=== PATIENT | male | born 1940 | race Caucasian/White ===

== ENCOUNTER 2018-01-03 14:56 | Inpatient (IN) | payer MEDICARE, BC ==
[2018-01-03 15:20] LABS: Basophils % (A) 0 %; Eosinophils # (A) 0.3 k/uL (0-0.7); Eosinophils % (A) 3 %; HCT 44.7 % (39.0-53.0); HGB 15.2 gm/dL (13.0-17.5); Lymphocytes # (A) 1.6 k/uL (1.0-4.8); Lymphocytes % (A) 17 %; MCH 29.7 pg (25.0-35.0); MCHC 34.1 g/dL (31.0-37.0); MCV 87.2 fL (80.0-100.0); Mean Platelet Volume 7.5; Monocytes # (A) 0.9 k/uL (0-1.0); Monocytes % (A) 9 %; Neutrophils # (A) 6.2 k/uL (1.3-7.7); Neutrophils % (A) 68 %; Platelet Count 193 k/uL (150-450); RBC 5.12 m/uL (4.30-5.90); WBC 9.1 k/uL (3.8-10.6)
[2018-01-03 15:29] LABS: Albumin 3.9 g/dL (3.5-5.0); Calcium 8.9 mg/dL (8.4-10.2); Magnesium 2.1 mg/dL (1.6-2.3); Potassium 3.9 mmol/L (3.5-5.1); Total Bilirubin 0.6 mg/dL (0.2-1.3); Total Protein 6.5 g/dL (6.3-8.2)
[2018-01-03 15:34] LABS: Partial Thromboplastin Time 24.8 sec (22.0-30.0)
--- NOTE | 2018-01-03 15:36 | ED ---
General Adult HPI - General Source: patient, EMS, RN notes reviewed, old records reviewed Mode of arrival: EMS Limitations: no limitations <Edson Fernando - Last Filed: 01/03/18 17:08> <Edson Amaro - Last Filed: 01/03/18 22:36> - General Chief complaint: Shortness of Breath Stated complaint: ULICES, AFIB Time Seen by Provider: 01/03/18 14:58 - History of Present Illness Initial comments: 77-year-old male presenting for episode of dyspnea. Patient was transported by EMS. He had a single episode of severe dyspnea which lasted less than a minute. He states he could not take a breath. He denies any chest pain with this. No neck pain or arm pain. No abdominal pain. No diaphoresis or vomiting. Episode resolved without treatment. EMS reports stable vitals during transport. He did have a second episode while being transported by EMS this again lasted seconds and was not accompanied by pain. EMS report no change in vitals during the episode. Patient has no known history of coronary artery disease. No history of DVT or PE. (Edson Fernando) - Related Data Home Medications Medication Instructions Recorded Confirmed Allopurinol [Zyloprim] 300 mg PO DAILY 01/03/18 01/03/18 Atenolol 25 mg PO BID 01/03/18 01/03/18 Colchicine 0.6 mg PO TID PRN 01/03/18 01/03/18 Ergocalciferol [Vitamin D2] 50,000 unit PO SA 01/03/18 01/03/18 Hydrochlorothiazide [Hydrodiuril] 50 mg PO DAILY 01/03/18 01/03/18 Lisinopril [Zestril] 5 mg PO DAILY 01/03/18 01/03/18 Ranitidine HCl 150 mg PO BID 01/03/18 01/03/18 Tamsulosin HCl [Flomax] 0.4 mg PO DAILY 01/03/18 01/03/18 amLODIPine BESYLATE [Norvasc] 10 mg PO DAILY 01/03/18 01/03/18 traMADol HCL [Ultram] 50 mg PO Q6HR PRN 01/03/18 01/03/18 Allergies Allergy/AdvReac Type Severity Reaction Status Date / Time No Known Allergies Allergy Verified 01/03/18 15:33 Review of Systems ROS Other: All systems not noted in ROS Statement are negative. <XimenaitaEdson Shreyas - Last Filed: 01/03/18 17:08> ROS Other: All systems not noted in ROS Statement are negative. <Edson Amaro - Last Filed: 01/03/18 22:36> ROS Statement: Those systems with pertinent positive or pertinent negative responses have been documented in the HPI. Past Medical History Past Medical History: Hyperlipidemia, Hypertension, Prostate Disorder History of Any Multi-Drug Resistant Organisms: None Reported Past Surgical History: Back Surgery Smoking Status: Current every day smoker Past Alcohol Use History: None Reported Past Drug Use History: None Reported <XimenamehranpettyEdson Shreyas - Last Filed: 01/03/18 17:08> General Exam Limitations: no limitations General appearance: alert, in no apparent distress Head exam: Present: atraumatic, normocephalic Eye exam: Present: normal appearance, PERRL ENT exam: Present: normal exam Neck exam: Present: normal inspection. Absent: tenderness, meningismus Respiratory exam: Present: normal lung sounds bilaterally. Absent: respiratory distress, wheezes, rales Cardiovascular Exam: Present: regular rate, normal rhythm GI/Abdominal exam: Present: soft. Absent: distended, tenderness Extremities exam: Present: normal inspection, normal capillary refill. Absent: pedal edema, calf tenderness Neurological exam: Present: alert, oriented X3. Absent: motor sensory deficit Psychiatric exam: Present: normal affect, normal mood Skin exam: Present: warm, dry, intact. Absent: cyanosis, diaphoretic <XimenaEdson jean baptiste N - Last Filed: 01/03/18 17:08> Course <XimenaEdson jean baptiste N - Last Filed: 01/03/18 17:08> <Edson Amaro - Last Filed: 01/03/18 22:36> Vital Signs 01/03/18 01/03/18 01/03/18 14:58 16:05 17:35 Temperature 97.3 F L Pulse Rate 75 79 65 Respiratory 18 18 18 Rate Blood Pressure 93/55 109/52 93/55 O2 Sat by Pulse 93 L 96 98 Oximetry 01/03/18 01/03/18 01/03/18 18:12 19:14 21:17 Temperature 97.9 F Pulse Rate 59 L 58 L Respiratory 18 16 18 Rate Blood Pressure 98/57 114/51 O2 Sat by Pulse 98 97 Oximetry 01/03/18 21:29 Temperature Pulse Rate 72 Respiratory 16 Rate Blood Pressure O2 Sat by Pulse 96 Oximetry - Reevaluation(s) Reevaluation #1: 01/03/18 22:32 I did reevaluate the patient several occasions the VQ scan was negative for evidence of PE. I did discuss the findings with the patient has patient will be admitted he has have evidence of renal failure hypotension and episodes of dyspnea (Edson Amaro) EKG Findings - EKG Comments: EKG Findings:: EKG: Atrial fibrillation, left axis deviation, incomplete right bundle, rate of 76, QRS duration 108, QTC 435 <Edson Fernando - Last Filed: 01/03/18 17:08> Medical Decision Making - Lab Data Result diagrams: 01/03/18 15:11 01/03/18 15:11 <Edson Fernando - Last Filed: 01/03/18 17:08> - Lab Data Result diagrams: 01/03/18 15:11 01/03/18 15:11 <Edson Amaro - Last Filed: 01/03/18 22:36> - Medical Decision Making 77-year-old male presenting with episodic dyspnea. Labs reveal normal white blood cell count, stable hemoglobin, d-dimer is elevated at 2.4, creatinine is also elevated 3.1 with no known baseline. Patient will receive a VQ scan for evaluation of pulmonary embolism given the elevated d-dimer. Patient's care will be signed out to Dr. Amaro at shift change awaiting VQ scan and final disposition. (Edson Fernando) - Lab Data Lab Results 01/03/18 01/03/18 01/03/18 Range/Units 15:11 15:11 15:11 WBC 9.1 (3.8-10.6) k/uL RBC 5.12 (4.30-5.90) m/uL Hgb 15.2 (13.0-17.5) gm/dL Hct 44.7 (39.0-53.0) % MCV 87.2 (80.0-100.0) fL MCH 29.7 (25.0-35.0) pg MCHC 34.1 (31.0-37.0) g/dL RDW 14.0 (11.5-15.5) % Plt Count 193 (150-450) k/uL Neutrophils % 68 % Lymphocytes % 17 % Monocytes % 9 % Eosinophils % 3 % Basophils % 0 % Neutrophils # 6.2 (1.3-7.7) k/uL Lymphocytes # 1.6 (1.0-4.8) k/uL Monocytes # 0.9 (0-1.0) k/uL Eosinophils # 0.3 (0-0.7) k/uL Basophils # 0.0 (0-0.2) k/uL PT (9.0-12.0) sec INR (<1.2) APTT (22.0-30.0) sec D-Dimer (<0.60) mg/L FEU Sodium 136 L (137-145) mmol/L Potassium 3.9 (3.5-5.1) mmol/L Chloride 97 L (98-107) mmol/L Carbon Dioxide 25 (22-30) mmol/L Anion Gap 14 mmol/L BUN 44 H (9-20) mg/dL Creatinine 3.00 H (0.66-1.25) mg/dL Est GFR (CKD-EPI)AfAm 22 (>60 ml/min/1.73 sqM) Est GFR (CKD-EPI)NonAf 19 (>60 ml/min/1.73 sqM) Glucose 110 H (74-99) mg/dL Calcium 8.9 (8.4-10.2) mg/dL Magnesium 2.1 (1.6-2.3) mg/dL Total Bilirubin 0.6 (0.2-1.3) mg/dL AST 28 (17-59) U/L ALT 24 (21-72) U/L Alkaline Phosphatase 70 (38-126) U/L Total Creatine Kinase 321 H (55-170) U/L CK-MB (CK-2) 7.0 H* (0.0-2.4) ng/mL CK-MB (CK-2) Rel Index 2.2 Troponin I <0.012 (0.000-0.034) ng/mL NT-Pro-B Natriuret Pep pg/mL Total Protein 6.5 (6.3-8.2) g/dL Albumin 3.9 (3.5-5.0) g/dL 01/03/18 01/03/18 Range/Units 15:11 15:11 WBC (3.8-10.6) k/uL RBC (4.30-5.90) m/uL Hgb (13.0-17.5) gm/dL Hct (39.0-53.0) % MCV (80.0-100.0) fL MCH (25.0-35.0) pg MCHC (31.0-37.0) g/dL RDW (11.5-15.5) % Plt Count (150-450) k/uL Neutrophils % % Lymphocytes % % Monocytes % % Eosinophils % % Basophils % % Neutrophils # (1.3-7.7) k/uL Lymphocytes # (1.0-4.8) k/uL Monocytes # (0-1.0) k/uL Eosinophils # (0-0.7) k/uL Basophils # (0-0.2) k/uL PT 10.0 (9.0-12.0) sec INR 1.0 (<1.2) APTT 24.8 (22.0-30.0) sec D-Dimer 2.41 H (<0.60) mg/L FEU Sodium (137-145) mmol/L Potassium (3.5-5.1) mmol/L Chloride (98-107) mmol/L Carbon Dioxide (22-30) mmol/L Anion Gap mmol/L BUN (9-20) mg/dL Creatinine (0.66-1.25) mg/dL Est GFR (CKD-EPI)AfAm (>60 ml/min/1.73 sqM) Est GFR (CKD-EPI)NonAf (>60 ml/min/1.73 sqM) Glucose (74-99) mg/dL Calcium (8.4-10.2) mg/dL Magnesium (1.6-2.3) mg/dL Total Bilirubin (0.2-1.3) mg/dL AST (17-59) U/L ALT (21-72) U/L Alkaline Phosphatase (38-126) U/L Total Creatine Kinase (55-170) U/L CK-MB (CK-2) (0.0-2.4) ng/mL CK-MB (CK-2) Rel Index Troponin I (0.000-0.034) ng/mL NT-Pro-B Natriuret Pep 2270 pg/mL Total Protein (6.3-8.2) g/dL Albumin (3.5-5.0) g/dL Disposition <Edson Fernando - Last Filed: 01/03/18 17:08> <Edson Amaro - Last Filed: 01/03/18 22:36> Clinical Impression: Acute renal failure (ARF), Hypotensive episode, Dyspnea Disposition: ADMITTED IP TO THIS HOSP Condition: Stable Referrals: [facility],Clinic [Primary Care Provider] - 1-2 days
[2018-01-03 15:37] LABS: D-Dimer 2.41 mg/L FEU (<0.60)
[2018-01-03 15:43] LABS: Creatine Kinase 321 U/L (55-170)
--- NOTE | 2018-01-03 15:52 | XR ---
EXAMINATION TYPE: XR chest 2V DATE OF EXAM: 01/03/2018 COMPARISON: None HISTORY: Severe shortness of breath and hypertension TECHNIQUE: Frontal and lateral views of the chest are obtained. FINDINGS: There is flattening of the diaphragms and pulmonary hyperinflation compatible with underly ing COPD. Anterior bridging osteophytes are seen that may relate to degenerative change or diffuse id iopathic skeletal hyperostosis within the thoracic spine. Cardiomediastinal silhouette is upper limit s of normal size. No focal consolidation or pleural effusion is seen. No pneumothorax. Moderate acrom ioclavicular arthropathy. IMPRESSION: No acute cardiopulmonary process. Radiographic sequela of COPD.
[2018-01-03 15:55] LABS: Troponin I <0.012 ng/mL (0.000-0.034)
--- NOTE | 2018-01-03 17:37 | NM ---
EXAMINATION TYPE: NM pul vent and perfuse DATE OF EXAM: 01/03/2018 COMPARISON: Chest radiographs 01/03/2018 at 3:46 PM HISTORY: Dyspnea, elevated d-dimer TECHNIQUE: Utilizing inhalation of 68.8 mCi Tc 99m DTPA aerosol and intravenous injection of 5.2 mCi of Tc 99m MAA, ventilation and perfusion images are acquired post injection in multiple projections. FINDINGS: The radiotracer distribution is noted to be mildly heterogeneous throughout the lung on both the vent ilation multiplanar images and the multiplanar perfusion images, on the left greater than the right. However, there is no evidence of mismatched defects. IMPRESSION: Low probability for the diagnosis of pulmonary embolism.
[2018-01-03] MEDS ORDERED: SODIUM CHLORIDE 0.9% 500 ML IV STA (18:05)
[2018-01-03] MEDS ORDERED: SODIUM CHLORIDE 0.9% 1,000 ML IV STA (22:34)
[2018-01-03] MEDS ORDERED: NALOXONE 0.4 MG/ML 1 ML VIAL IV PRN (22:36)
[2018-01-03] MEDS ORDERED: ACETAMINOPHEN TAB 325 MG TAB PO PRN (22:36)
[2018-01-03] MEDS ORDERED: COLCHICINE 0.6 MG EACH PO PRN (22:41)
[2018-01-03] MEDS ORDERED: traMADol 50 MG TAB PO PRN (22:41)
--- NOTE | 2018-01-03 22:42 | ED ---
Medical Decision Making - Medical Decision Making Additional information is currently being treated for acute gout attack is on medication. - Lab Data Result diagrams: 01/03/18 15:11 01/03/18 15:11 Lab Results 01/03/18 01/03/18 01/03/18 Range/Units 15:11 15:11 15:11 WBC 9.1 (3.8-10.6) k/uL RBC 5.12 (4.30-5.90) m/uL Hgb 15.2 (13.0-17.5) gm/dL Hct 44.7 (39.0-53.0) % MCV 87.2 (80.0-100.0) fL MCH 29.7 (25.0-35.0) pg MCHC 34.1 (31.0-37.0) g/dL RDW 14.0 (11.5-15.5) % Plt Count 193 (150-450) k/uL Neutrophils % 68 % Lymphocytes % 17 % Monocytes % 9 % Eosinophils % 3 % Basophils % 0 % Neutrophils # 6.2 (1.3-7.7) k/uL Lymphocytes # 1.6 (1.0-4.8) k/uL Monocytes # 0.9 (0-1.0) k/uL Eosinophils # 0.3 (0-0.7) k/uL Basophils # 0.0 (0-0.2) k/uL PT (9.0-12.0) sec INR (<1.2) APTT (22.0-30.0) sec D-Dimer (<0.60) mg/L FEU Sodium 136 L (137-145) mmol/L Potassium 3.9 (3.5-5.1) mmol/L Chloride 97 L (98-107) mmol/L Carbon Dioxide 25 (22-30) mmol/L Anion Gap 14 mmol/L BUN 44 H (9-20) mg/dL Creatinine 3.00 H (0.66-1.25) mg/dL Est GFR (CKD-EPI)AfAm 22 (>60 ml/min/1.73 sqM) Est GFR (CKD-EPI)NonAf 19 (>60 ml/min/1.73 sqM) Glucose 110 H (74-99) mg/dL Calcium 8.9 (8.4-10.2) mg/dL Magnesium 2.1 (1.6-2.3) mg/dL Total Bilirubin 0.6 (0.2-1.3) mg/dL AST 28 (17-59) U/L ALT 24 (21-72) U/L Alkaline Phosphatase 70 (38-126) U/L Total Creatine Kinase 321 H (55-170) U/L CK-MB (CK-2) 7.0 H* (0.0-2.4) ng/mL CK-MB (CK-2) Rel Index 2.2 Troponin I <0.012 (0.000-0.034) ng/mL NT-Pro-B Natriuret Pep pg/mL Total Protein 6.5 (6.3-8.2) g/dL Albumin 3.9 (3.5-5.0) g/dL 01/03/18 01/03/18 Range/Units 15:11 15:11 WBC (3.8-10.6) k/uL RBC (4.30-5.90) m/uL Hgb (13.0-17.5) gm/dL Hct (39.0-53.0) % MCV (80.0-100.0) fL MCH (25.0-35.0) pg MCHC (31.0-37.0) g/dL RDW (11.5-15.5) % Plt Count (150-450) k/uL Neutrophils % % Lymphocytes % % Monocytes % % Eosinophils % % Basophils % % Neutrophils # (1.3-7.7) k/uL Lymphocytes # (1.0-4.8) k/uL Monocytes # (0-1.0) k/uL Eosinophils # (0-0.7) k/uL Basophils # (0-0.2) k/uL PT 10.0 (9.0-12.0) sec INR 1.0 (<1.2) APTT 24.8 (22.0-30.0) sec D-Dimer 2.41 H (<0.60) mg/L FEU Sodium (137-145) mmol/L Potassium (3.5-5.1) mmol/L Chloride (98-107) mmol/L Carbon Dioxide (22-30) mmol/L Anion Gap mmol/L BUN (9-20) mg/dL Creatinine (0.66-1.25) mg/dL Est GFR (CKD-EPI)AfAm (>60 ml/min/1.73 sqM) Est GFR (CKD-EPI)NonAf (>60 ml/min/1.73 sqM) Glucose (74-99) mg/dL Calcium (8.4-10.2) mg/dL Magnesium (1.6-2.3) mg/dL Total Bilirubin (0.2-1.3) mg/dL AST (17-59) U/L ALT (21-72) U/L Alkaline Phosphatase (38-126) U/L Total Creatine Kinase (55-170) U/L CK-MB (CK-2) (0.0-2.4) ng/mL CK-MB (CK-2) Rel Index Troponin I (0.000-0.034) ng/mL NT-Pro-B Natriuret Pep 2270 pg/mL Total Protein (6.3-8.2) g/dL Albumin (3.5-5.0) g/dL Disposition Clinical Impression: Acute renal failure (ARF), Hypotensive episode, Dyspnea Disposition: ADMITTED IP TO THIS HOSP Condition: Stable Referrals: [facility],Clinic [Primary Care Provider] - 1-2 days
[2018-01-03] MEDS: SODIUM CHLORIDE 0.9% 1,000 ML IV SCH (23:05)
[2018-01-03 23:52] VITALS: BMI 24.7
[2018-01-04] MEDS ORDERED: FAMOTIDINE 20 MG TAB PO STA (00:23)
[2018-01-04] MEDS ORDERED: COLCHICINE 0.6 MG EACH PO STA (00:23)
[2018-01-04] MEDS: TAMSULOSIN 0.4 MG CAP.ER.24H PO SCH (08:19)
[2018-01-04] MEDS: ALLOPURINOL 300 MG TAB PO SCH (08:19)
[2018-01-04] MEDS: ATENOLOL 25 MG TAB PO SCH ×2 (08:19→20:21)
[2018-01-04] MEDS: COLCHICINE 0.6 MG EACH PO SCH ×3 (08:19→20:21)
[2018-01-04 08:40] LABS: Basophils % (A) 0 %; Eosinophils # (A) 0.3 k/uL (0-0.7); Eosinophils % (A) 3 %; HCT 45.4 % (39.0-53.0); HGB 15.1 gm/dL (13.0-17.5); Lymphocytes # (A) 1.8 k/uL (1.0-4.8); Lymphocytes % (A) 22 %; MCH 29.5 pg (25.0-35.0); MCHC 33.2 g/dL (31.0-37.0); Mean Platelet Volume 7.7; Monocytes # (A) 0.6 k/uL (0-1.0); Monocytes % (A) 7 %; Neutrophils # (A) 5.6 k/uL (1.3-7.7); Neutrophils % (A) 66 %; Platelet Count 199 k/uL (150-450); RDW 13.8 % (11.5-15.5); WBC 8.4 k/uL (3.8-10.6)
[2018-01-04 08:56] LABS: Albumin 3.8 g/dL (3.5-5.0); Potassium 3.6 mmol/L (3.5-5.1); Total Bilirubin 0.5 mg/dL (0.2-1.3); Total Protein 6.4 g/dL (6.3-8.2); Uric Acid 6.1 mg/dL (3.5-8.5)
[2018-01-04] MEDS ORDERED: amLODIPine 10 MG TAB PO SCH (09:00)
[2018-01-04] MEDS ORDERED: FAMOTIDINE 20 MG TAB PO SCH (09:00)
[2018-01-04] MEDS ORDERED: COLCHICINE 0.6 MG EACH PO SCH (09:00)
[2018-01-04] MEDS ORDERED: HYDROCHLOROTHIAZIDE 50 MG TAB PO SCH (09:00)
--- NOTE | 2018-01-04 09:32 | P.NPCON ---
History of Present Illness - Reason for Consult acute renal failure - History of Present Illness Reason for consultation: Acute kidney injury History of present illness: Patient is a 77-year-old male seen in renal consultation for acute kidney injury. Unclear as to what his base in renal function is. Creatinine was 3.0 on admission and is down to 2.88 today. He is currently maintained on normal saline at 80 mL an hour. He was taking hydrochlorothiazide and lisinopril as an outpatient. Lisinopril is held however he did receive hydrochlorothiazide this morning. Patient presented to the hospital with dyspnea. VQ scan revealed low probability of PE. Chest x-ray revealed no evidence of fluid overload. Patient's also being treated for acute gout which started last Sunday. His oral intake over the last week has been quite poor. He admits to good urine output. Denies hematuria or dysuria. Denies chest pain. Dyspnea is overall improved. Hemodynamically stable. Denies any family history of kidney disease. Denies vomiting or diarrhea. He denies use of NSAIDs. Vital signs are stable. General: The patient appeared well nourished and normally developed. HEENT: Head exam is unremarkable. Neck is without jugular venous distension. LUNGS: Lungs are clear to auscultation and percussion. Breath sounds decreased. HEART: Rate and Rhythm are regular. First and second heart sounds normal. No murmurs, rubs or gallops. ABDOMEN: Abdominal exam reveals normal bowel sounds. Non-tender and non- distended. No evidence of peritonitis. EXTREMITITES: No clubbing, cyanosis, or edema. Erythema and ankles noted. No obvious drainage. Past Medical History Past Medical History: Atrial Fibrillation, COPD, Hyperlipidemia, Hypertension, Prostate Disorder, Renal Disease Additional Past Medical History / Comment(s): gout, PSA elevated, acute renal failure since 11/2017 History of Any Multi-Drug Resistant Organisms: None Reported Past Surgical History: Back Surgery Additional Past Surgical History / Comment(s): 4 back surgeries Past Anesthesia/Blood Transfusion Reactions: No Reported Reaction Past Psychological History: No Psychological Hx Reported Smoking Status: Current every day smoker Past Alcohol Use History: None Reported Past Drug Use History: None Reported - Past Family History Mother Family Medical History: Cancer Additional Family Medical History / Comment(s): cirriosis Father Family Medical History: Cancer Medications and Allergies Home Medications Medication Instructions Recorded Confirmed Type Allopurinol [Zyloprim] 300 mg PO DAILY 01/03/18 01/03/18 History Atenolol 25 mg PO BID 01/03/18 01/03/18 History Colchicine 0.6 mg PO TID PRN 01/03/18 01/03/18 History Ergocalciferol [Vitamin D2] 50,000 unit PO SA 01/03/18 01/03/18 History Hydrochlorothiazide [Hydrodiuril] 50 mg PO DAILY 01/03/18 01/03/18 History Lisinopril [Zestril] 5 mg PO DAILY 01/03/18 01/03/18 History Ranitidine HCl 150 mg PO BID 01/03/18 01/03/18 History Tamsulosin HCl [Flomax] 0.4 mg PO DAILY 01/03/18 01/03/18 History amLODIPine BESYLATE [Norvasc] 10 mg PO DAILY 01/03/18 01/03/18 History traMADol HCL [Ultram] 50 mg PO Q6HR PRN 01/03/18 01/03/18 History Allergies Allergy/AdvReac Type Severity Reaction Status Date / Time No Known Allergies Allergy Verified 01/03/18 15:33 Physical Exam Vitals: Vital Signs Temp Pulse Pulse Pulse Resp BP BP 01/04/18 07:26 01/04/18 05:47 97.8 F 75 18 130/62 01/04/18 00:00 18 01/03/18 23:42 97.5 F L 79 18 132/62 01/03/18 23:10 98.3 F 63 16 110/68 01/03/18 21:29 72 16 01/03/18 21:17 18 01/03/18 19:14 97.9 F 58 L 16 114/51 01/03/18 18:12 59 L 18 98/57 01/03/18 17:35 65 18 93/55 01/03/18 16:05 79 18 109/52 01/03/18 14:58 97.3 F L 75 18 93/55 Pulse Ox 01/04/18 07:26 95 01/04/18 05:47 95 01/04/18 00:00 01/03/18 23:42 98 01/03/18 23:10 96 01/03/18 21:29 96 01/03/18 21:17 01/03/18 19:14 97 01/03/18 18:12 98 01/03/18 17:35 98 01/03/18 16:05 96 01/03/18 14:58 93 L Intake and Output 01/03/18 01/04/18 01/04/18 22:59 06:59 14:59 Other: Voiding Method Toilet Toilet Urinal Urinal # Voids 2 Weight 80.5 kg Results - Lab Results Most recent lab results Calcium 9.0 mg/dL (8.4-10.2) 01/04/18 07:50 Magnesium 2.1 mg/dL (1.6-2.3) 01/03/18 15:11 01/04/18 07:50 01/04/18 07:50 Assessment and Plan Plan: Assessment: 1. Nonoliguric acute kidney injury secondary to ATN secondary to poor oral intake and further worsened with the use of lisinopril and diuretics. Creatinine was 3 and admission and is down to 2.88 today. Unknown baseline creatinine. 2. Acute gout maintained on colchicine. 3. Benign hypertension. Controlled. 4. BPH maintained on Flomax. Plan: Maintain normal saline at 80 mL an hour. Continue to hold lisinopril. I will discontinue hydrochlorothiazide for now. Check urinalysis. Check renal ultrasound. Thank you for the consultation. I will continue to follow the patient with you during his hospital stay.
[2018-01-04] MEDS ORDERED: IPRATROPIUM-ALBUTEROL 3 ML NEB INHALATION PRN (11:21)
[2018-01-04 11:48] LABS: Appearance,Urine Clear (Clear); Bilirubin,Urine Negative (Negative); Blood,Urine Negative (Negative); Color,Urine Light Yellow; Glucose,Urine (UA) Negative (Negative); Ketones,Urine Negative (Negative); Leukocyte Esterase,Urine Negative (Negative); Nitrite,Urine Negative (Negative); PH, Urine 5.5 (5.0-8.0); Protein,Urine Negative (Negative); Specific Gravity,Urine 1.005 (1.001-1.035); Urobilinogen,Urine <2.0 mg/dL (<2.0)
--- NOTE | 2018-01-04 12:20 | US ---
EXAMINATION TYPE: US kidneys/renal and bladder DATE OF EXAM: 01/04/2018 COMPARISON: NONE CLINICAL HISTORY: matt. back pain, no renal history per patient EXAM MEASUREMENTS: Right Kidney: 12.8 x 5.1 x 6.0 cm Left Kidney: 12.0 x 5.0 x 7.0 cm Right Kidney: multiple cysts seen, largest = 2.0cm on inferior pole Left Kidney: 4.9cm irregular walled cyst with septation noted at inferior pole Bladder: wnl Bilateral Jets seen: not seen There is no evidence for hydronephrosis at this point in time. No nephrolithiasis is seen. The uri nary bladder is anechoic. Bilateral ureteral jets are not seen. A few small simple appearing cysts are scattered throughout the right kidney on images saved. There i s lobulated cyst with thin septation or 2 adjacent cysts in the left kidney marked towards end of jo dy by technologist. IMPRESSION: No hydronephrosis is evident bilaterally.
[2018-01-04 15:23] VITALS: RESP 16
--- NOTE | 2018-01-04 16:23 | P.HPIM ---
History of Present Illness 77-year-old gentleman came to ER with the comments of shortness of breath patient is found to have elevated creatinine because of which patient was admitted. His baseline creatinine is unknown his creatinine is 3.0 here and patient was having gout because of which patient is on colchicine for that. Patient did not take any NSAID patient doesn't know if he had chronic kidney disease. VQ scan showed low probability PE chest x-ray did not show any fluid overload clinically patient does not appear to have any COPD exacerbation. Although patient used to smoke more than a pack a day cutdown to 1 pack a day now. May have had COPD and bronchospasm which is not present now. Patient's creatinine with IV fluids as come down from 3.0-2.88 patient is being continued on IV fluids kidney ultrasound is being obtained nephrology was consulted. He denied any dyspnea at this time. He denied any cough fever chills doesn't have any pneumonia as was chest x-ray or clinically Review of Systems REVIEW OF SYSTEMS: CONSTITUTIONAL: No fever, no malaise, no fatigue. HEENT: No recent visual problems or hearing problems. Denied any sore throat. CARDIOVASCULAR: No chest pain, orthopnea, PND, no palpitations, no syncope. PULMONARY, no hemoptysis. GASTROINTESTINAL: No diarrhea, no nausea, no vomiting, no abdominal pain. Normoactive bowel sounds. NEUROLOGICAL: No headaches, no weakness, no numbness. HEMATOLOGICAL: Denies any bleeding or petechiae. GENITOURINARY: Denies any burning micturition, frequency, or urgency. MUSCULOSKELETAL/RHEUMATOLOGICAL: Denies any joint pain, swelling, or any muscle pain. ENDOCRINE: Denies any polyuria or polydipsia. The rest of the 14-point review of systems is negative. Past Medical History Past Medical History: Atrial Fibrillation, COPD, Hyperlipidemia, Hypertension, Prostate Disorder, Renal Disease Additional Past Medical History / Comment(s): gout, PSA elevated, acute renal failure since 11/2017 History of Any Multi-Drug Resistant Organisms: None Reported Past Surgical History: Back Surgery Additional Past Surgical History / Comment(s): 4 back surgeries Past Anesthesia/Blood Transfusion Reactions: No Reported Reaction Past Psychological History: No Psychological Hx Reported Smoking Status: Current every day smoker Past Alcohol Use History: None Reported Past Drug Use History: None Reported - Past Family History Mother Family Medical History: Cancer Additional Family Medical History / Comment(s): cirriosis Father Family Medical History: Cancer Medications and Allergies Home Medications Medication Instructions Recorded Confirmed Type Allopurinol [Zyloprim] 300 mg PO DAILY 01/03/18 01/03/18 History Atenolol 25 mg PO BID 01/03/18 01/03/18 History Colchicine 0.6 mg PO TID PRN 01/03/18 01/03/18 History Ergocalciferol [Vitamin D2] 50,000 unit PO SA 01/03/18 01/03/18 History Hydrochlorothiazide [Hydrodiuril] 50 mg PO DAILY 01/03/18 01/03/18 History Lisinopril [Zestril] 5 mg PO DAILY 01/03/18 01/03/18 History Ranitidine HCl 150 mg PO BID 01/03/18 01/03/18 History Tamsulosin HCl [Flomax] 0.4 mg PO DAILY 01/03/18 01/03/18 History amLODIPine BESYLATE [Norvasc] 10 mg PO DAILY 01/03/18 01/03/18 History traMADol HCL [Ultram] 50 mg PO Q6HR PRN 01/03/18 01/03/18 History Allergies Allergy/AdvReac Type Severity Reaction Status Date / Time No Known Allergies Allergy Verified 01/03/18 15:33 Physical Exam Vitals: Vital Signs Temp Pulse Pulse Pulse Resp BP BP 01/04/18 14:56 97.8 F 81 16 112/60 01/04/18 07:26 01/04/18 05:47 97.8 F 75 18 130/62 01/04/18 00:00 18 01/03/18 23:42 97.5 F L 79 18 132/62 01/03/18 23:10 98.3 F 63 16 110/68 01/03/18 21:29 72 16 01/03/18 21:17 18 01/03/18 19:14 97.9 F 58 L 16 114/51 01/03/18 18:12 59 L 18 98/57 01/03/18 17:35 65 18 93/55 Pulse Ox 01/04/18 14:56 95 01/04/18 07:26 95 01/04/18 05:47 95 01/04/18 00:00 01/03/18 23:42 98 01/03/18 23:10 96 01/03/18 21:29 96 01/03/18 21:17 01/03/18 19:14 97 01/03/18 18:12 98 01/03/18 17:35 98 Intake and Output 01/04/18 01/04/18 01/04/18 06:59 14:59 22:59 Intake Total 400 Output Total 700 Balance -300 Intake: Oral 400 Output: Urine 700 Other: Voiding Method Toilet Toilet Toilet Urinal Urinal Urinal # Voids 2 Weight 80.5 kg PHYSICAL EXAMINATION: GENERAL: The patient is alert and oriented x3, not in any acute distress. Well developed, well nourished. HEENT: Pupils are round and equally reacting to light. EOMI. No scleral icterus. No conjunctival pallor. Normocephalic, atraumatic. No pharyngeal erythema. No thyromegaly. CARDIOVASCULAR: S1 and S2 present. No murmurs, rubs, or gallops. PULMONARY: Chest is clear to auscultation, no wheezing or crackles. ABDOMEN: Soft, nontender, nondistended, normoactive bowel sounds. No palpable organomegaly. MUSCULOSKELETAL: No joint swelling or deformity. EXTREMITIES: No cyanosis, clubbing, or pedal edema. Patient does have gouty arthritis of the left great toe in bilateral ankles pain and tenderness did improve NEUROLOGICAL: Gross neurological examination did not reveal any focal deficits. SKIN: No rashes. Results CBC & Chem 7: 01/04/18 07:50 01/04/18 07:50 Labs: Abnormal Lab Results - Last 24 Hours (Table) 01/04/18 Range/Units 07:50 BUN 51 H (9-20) mg/dL Creatinine 2.88 H (0.66-1.25) mg/dL Glucose 107 H (74-99) mg/dL Thrombosis Risk Factor Assmnt - Choose All That Apply Any of the Below Risk Factors Present?: Yes Each Factor Represents 1 point: Swollen legs (current) Other Risk Factors: No Thrombosis Risk Factor Assessment Total Risk Factor Score: 1 Thrombosis Risk Factor Assessment Level: Low Risk Assessment and Plan Plan: -Shortness of breath: Etiology unclear rule out pulmonary embolism may have had on and off COPD counseling regarding smoking cessation was provided patient will be discharged on albuterol patient may need pulmonary function testing. Patient will not require systemic steroids at this time. -Renal failure: Unsure whether patient has acute renal failure on chronic kidney disease patient may have a competent of both IV fluids will be increased to 200 mL/h monitor creatinine elevating ultrasound of the kidney and further workup for renal failure -Acute gouty arthritis: Continue with colchicine -Benign prostatic atrophy -Rule out pulmonary embolism -Hypertension: Nephrotoxic agents including SAM inhibitor was discontinued patient is being continued on atenolol I'm cutting down amlodipine because of low normal blood pressures and hypotension can cause kidney dysfunction, hydrochlorothiazide is being discontinued
[2018-01-04] MEDS: SODIUM CHLORIDE 0.9% 1,000 ML IV SCH ×2 (16:50→20:20)
[2018-01-04 21:39] VITALS: TEMP 97.9
[2018-01-05] MEDS: SODIUM CHLORIDE 0.9% 1,000 ML IV SCH (06:06)
[2018-01-05 06:19] VITALS: BP 128/62; PULSE 81
[2018-01-05] MEDS: ALLOPURINOL 300 MG TAB PO SCH (08:09)
[2018-01-05] MEDS: ATENOLOL 25 MG TAB PO SCH (08:09)
[2018-01-05] MEDS: TAMSULOSIN 0.4 MG CAP.ER.24H PO SCH (08:10)
[2018-01-05 08:42] LABS: HCT 44.2 % (39.0-53.0); HGB 14.9 gm/dL (13.0-17.5); MCH 30.3 pg (25.0-35.0); MCHC 33.7 g/dL (31.0-37.0); MCV 89.9 fL (80.0-100.0); Mean Platelet Volume 7.3; Platelet Count 178 k/uL (150-450); RBC 4.92 m/uL (4.30-5.90); RDW 13.8 % (11.5-15.5); WBC 7.9 k/uL (3.8-10.6)
[2018-01-05] MEDS ORDERED: FAMOTIDINE 20 MG TAB PO SCH (09:00)
[2018-01-05] MEDS ORDERED: amLODIPine 5 MG TAB PO SCH (09:00)
[2018-01-05] MEDS ORDERED: ERGOCALCIFEROL 50,000 UNIT CAP PO SCH (09:00)
[2018-01-05 09:05] LABS: Albumin 3.4 g/dL (3.5-5.0); Calcium 9.1 mg/dL (8.4-10.2); Potassium 3.5 mmol/L (3.5-5.1); Total Bilirubin 0.4 mg/dL (0.2-1.3); Total Protein 6.1 g/dL (6.3-8.2)
--- NOTE | 2018-01-05 12:46 | P.DS ---
Providers Date of admission: 01/03/18 22:36 Attending physician: Abisai Abrams Consults: 01/03/18 22:39 Consult Physician Routine Consulting Provider: Maria Antonia Whitaker Consult Reason/Comments: Renal failure Do you want consulting provider notified?: Yes Primary care physician: [facility] Course: This is 77-year-old male patient who presented to the ER with bilateral ankle pain and inability to ambulate. He also had some mild shortness of breath. He was found to have acute kidney failure and was followed by nephrology during his hospitalization. He received colchicine and I will Purinol and his gouty flareup subsided. This may be associated with psoriatic arthritis as the patient does have a long-standing history of psoriasis. His creatinine is down to 2. He will follow-up with his PCP as an outpatient. He's been able to ambulate without any difficulties. Denies any pain. Blood pressure has stabilized. He denies shortness of breath. Patient Condition at Discharge: Stable Plan - Discharge Summary Discharge Rx Participant: No New Discharge Prescriptions: New Acetaminophen Tab [Tylenol] 650 mg PO Q6HR PRN tab PRN Reason: Mild Pain Or Fever > 100.5 amLODIPine [Norvasc] 5 mg PO DAILY #30 tab Continue Tamsulosin HCl [Flomax] 0.4 mg PO DAILY Ranitidine HCl 150 mg PO BID Ergocalciferol [Vitamin D2 (DRISDOL)] 50,000 unit PO SA Allopurinol [Zyloprim] 300 mg PO DAILY Atenolol 25 mg PO BID traMADol HCL [Ultram] 50 mg PO Q6HR PRN PRN Reason: Pain Discontinued Hydrochlorothiazide [Hydrodiuril] 50 mg PO DAILY amLODIPine BESYLATE [Norvasc] 10 mg PO DAILY Lisinopril [Zestril] 5 mg PO DAILY Colchicine 0.6 mg PO TID PRN PRN Reason: gout Discharge Medication List Allopurinol [Zyloprim] 300 mg PO DAILY 01/03/18 [History] Atenolol 25 mg PO BID 01/03/18 [History] Ergocalciferol [Vitamin D2 (DRISDOL)] 50,000 unit PO SA 01/03/18 [History] Ranitidine HCl 150 mg PO BID 01/03/18 [History] Tamsulosin HCl [Flomax] 0.4 mg PO DAILY 01/03/18 [History] traMADol HCL [Ultram] 50 mg PO Q6HR PRN 01/03/18 [History] Acetaminophen Tab [Tylenol] 650 mg PO Q6HR PRN tab 01/05/18 [Rx] amLODIPine [Norvasc] 5 mg PO DAILY #30 tab 01/05/18 [Rx] Follow up Appointment(s)/Referral(s): [facility],Clinic [Primary Care Provider] - 3 Days Discharge Disposition: HOME SELF-CARE
--- NOTE | 2018-01-05 16:26 | PN ---
PROGRESS NOTE Patient is seen for followup for acute kidney injury. He will actually be discharged today. His serum creatinine has improved to 2.0 from 3.0 on initial admission. PHYSICAL EXAMINATION: Blood pressure is 128/62, heart rate 81 per minute. Patient is afebrile. EXAMINATION OF THE HEART: S1, S2. EXAMINATION OF LUNGS: Bilateral breath sounds are heard. ABDOMEN: Soft, non-tender. Examination of lower extremities shows no significant edema. [employer] exam is grossly intact. LABS: Sodium 146, potassium 3.5, BUN 40, serum creatinine 2.01, hemoglobin 14.9. ASSESSMENT: 1. Acute kidney injury, prerenal, currently improved. 2. Gout, maintained on colchicine and improved. 3. Hypertension. 4. Benign prostatic hypertrophy, maintained on Flomax. PLAN: The patient can be discharged from nephrology standpoint. He is advised to avoid use of any NSAIDs down the road. Blood pressure is currently not too high. However, if patient needs SAM inhibitors, they can likely be restarted at a lower dose in the next couple of days. Patient should follow up with his PCP and he will likely need nephrology followup as well if his renal function remains compromised. MMODL / IJN: [id number] /
== END 2018-01-05 13:53 | disposition home or self-care (01) | DRG 684 ==
LOC: EC 14:56 → 5MS5E 22:36
PROVIDERS: ADMIT Internal Medicine; ATTEND Internal Medicine
DX: N17.0 Acute kidney failure with tubular necrosis (principal); E78.5 Hyperlipidemia, unspecified; F17.200 Nicotine dependence, unspecified, uncomplicated; I10 Essential (primary) hypertension; I48.91 Unspecified atrial fibrillation; J44.9 Chronic obstructive pulmonary disease, unspecified; M10.072 Idiopathic gout, left ankle and foot; M10.071 Idiopathic gout, right ankle and foot; N40.0 Benign prostatic hyperplasia without lower urinary tract symptoms; Z71.6 Tobacco abuse counseling; T50.2X5A Adverse effect of carbonic-anhydrase inhibitors, benzothiadiazides and other diuretics, initial encounter; Z80.9 Family history of malignant neoplasm, unspecified
CPT/HCPCS: 36415; 71046; 76770; 78582; 80053; 81003; 82550; 82553; 83735; 83880; 84484; 84550; 85025; 85027; 85379; 85610; 85730; 93005; 94760; 99285

== ENCOUNTER → 2018-04-03 | Outpatient (CLI) | payer MEDICARE, BC ==
--- NOTE | 2018-04-03 18:18 | CT ---
EXAMINATION TYPE: CT hip LT wo con DATE OF EXAM: 04/03/2018 COMPARISON: None HISTORY: Left hip pain. CT DLP: 463 mGycm Automated exposure control for dose reduction was used. FINDINGS: The pelvic ring appears intact. Sacroiliac joints appear intact. There is hypertrophic acetabular spu rring. There is bilateral hypertrophic spurring of the femoral heads. I see no sign of a fracture. Th ere is no hip dysplasia. There is no sign of a pelvic mass. There is no free fluid in the pelvis. Pro state is enlarged with calcification. IMPRESSION: HYPERTROPHIC OSTEOARTHRITIS IN BOTH HIP JOINTS. NO FRACTURE.
== END | disposition home or self-care (01) ==
LOC: RADCTMAIN 17:17
PROVIDERS: ATTEND Orthopaedic Surgery
DX: M16.0 Bilateral primary osteoarthritis of hip (principal)

== ENCOUNTER → 2018-04-16 | Outpatient (CLI) | payer MEDICARE, BC ==
[2018-04-16 14:46] LABS: HGB 14.4 gm/dL (13.0-17.5); Hypochromasia Slight; MCH 29.7 pg (25.0-35.0); MCHC 31.2 g/dL (31.0-37.0); MCV 95.1 fL (80.0-100.0); Mean Platelet Volume 6.7; Platelet Count 184 k/uL (150-450); RBC 4.84 m/uL (4.30-5.90); RDW 15.1 % (11.5-15.5); WBC 11.6 k/uL (3.8-10.6)
[2018-04-16 14:49] LABS: Appearance,Urine Clear (Clear); Bilirubin,Urine Negative (Negative); Blood,Urine Negative (Negative); Color,Urine Light Yellow; Glucose,Urine (UA) Negative (Negative); Ketones,Urine Negative (Negative); Leukocyte Esterase,Urine Negative (Negative); Nitrite,Urine Negative (Negative); PH, Urine 6.5 (5.0-8.0); Protein,Urine Negative (Negative); Specific Gravity,Urine 1.011 (1.001-1.035); Urobilinogen,Urine <2.0 mg/dL (<2.0)
[2018-04-16 14:55] LABS: INR 1.2 (<1.2); Partial Thromboplastin Time 27.4 sec (22.0-30.0); Prothrombin Time 11.4 sec (9.0-12.0)
[2018-04-16 15:00] LABS: Albumin 3.9 g/dL (3.5-5.0); Calcium 9.2 mg/dL (8.4-10.2); Potassium 4.3 mmol/L (3.5-5.1); Total Bilirubin 0.3 mg/dL (0.2-1.3); Total Protein 6.7 g/dL (6.3-8.2)
== END | disposition home or self-care (01) ==
LOC: LABPAT 14:06
PROVIDERS: ATTEND Orthopaedic Surgery
DX: Z01.812 Encounter for preprocedural laboratory examination (principal); Z79.01 Long term (current) use of anticoagulants
CPT/HCPCS: 36415; 80053; 81003; 85027; 85610; 85730; 87070

== ENCOUNTER → 2018-04-22 | Outpatient (CLI) | payer MEDICARE, BC | END | disposition home or self-care (01) | LOC: LABWHC1 11:15 | PROVIDERS: ATTEND Orthopaedic Surgery | DX: Z01.812 Encounter for preprocedural laboratory examination (principal) | CPT/HCPCS: 86850; 86900; 86901 ==

== ENCOUNTER 2018-04-30 10:11 | Inpatient (IN) | payer MEDICARE, BC ==
[2018-04-17 12:45] VITALS: BMI 27.8
[~2018-04-30 10:11] MED LIST: ACETAMINOPHEN TAB 500 MG TAB PO ONE; DEXAMETHASONE SOD PHOSPHATE 10 MG/ML 1 ML VIAL IV ONE; MELOXICAM 7.5 MG TAB PO ONE; MIDAZOLAM 2 MG/2 ML VIAL IV PRN; ONDANSETRON 4 MG/2 ML VIAL IVP ONE; ROPIVACAINE 246.25 MG, EPINEPHrine 0.5 MG, KETOROLAC 30 MG, cloNIDine HCL/PF 80 MCG, WA... MISCELLANE ONE; TRANEXAMIC ACID 1,000 MG in SODIUM CHLORIDE 0.9% 50 ML IVPB ONE; ceFAZolin IN SWFI 2 GM/20 ML SYRINGE IVP ONE; fentaNYL (PF) 50 MCG/ML 2 ML AMP IV PRN
[2018-04-30] MEDS: LACTATED RINGERS 1,000 ML IV SCH (11:35)
[2018-04-30] MEDS ORDERED: LIDOCAINE 1% 20 ML VIAL (10MG/ML) FOR IV START INTRADERMA ONE (11:35)
[2018-04-30 11:39] LABS: Glucose,Whole Blood 107 mg/dL (75-99)
[2018-04-30] MEDS ORDERED: fentaNYL (PF) 50 MCG/ML 2 ML AMP ONE (12:14)
[2018-04-30] MEDS ORDERED: MIDAZOLAM 2 MG/2 ML VIAL ONE (12:14)
[2018-04-30] MEDS ORDERED: SODIUM CHLORIDE 0.9% 100 ML BAG ONE (12:14)
[2018-04-30] MEDS ORDERED: HEPARIN SODIUM,PORCINE 10,000 UNIT/ML 1 ML VIAL ONE (12:14)
[2018-04-30] MEDS ORDERED: SODIUM CHLORIDE 0.9% IRRIG 1,000 ML BTL IRRIGATION ONE (12:14)
[2018-04-30] MEDS ORDERED: TRANEXAMIC ACID 1,000 MG/10 ML VIAL ONE (12:14)
[2018-04-30] MEDS ORDERED: IPRATROPIUM-ALBUTEROL 3 ML NEB INHALATION STA (12:18)
[2018-04-30] MEDS ORDERED: ceFAZolin 3,000 MG in SODIUM CHLORIDE 0.9% IRRIGATIO 3,000 ML IRRIGATION ONE (12:30)
[2018-04-30] MEDS ORDERED: hydrOXYzine PAMOATE 25 MG CAP PO PRN (12:46)
[2018-04-30] MEDS ORDERED: ONDANSETRON 4 MG/2 ML VIAL IVP PRN (12:46)
[2018-04-30] MEDS ORDERED: MAGNESIUM HYDROXIDE 2,400 MG/10 ML CUP PO PRN (12:46)
[2018-04-30] MEDS ORDERED: HYDROcodone/APAP 5-325MG 1 EACH TAB PO PRN ×2 (12:46)
[2018-04-30] MEDS ORDERED: DIAZEPAM 5 MG TAB PO PRN ×2 (12:46)
[2018-04-30] MEDS ORDERED: NALOXONE 0.4 MG/ML 1 ML VIAL IV PRN (12:46)
[2018-04-30] MEDS ORDERED: HYDROmorphone 1 MG/ML 1 ML SYRINGE IVP PRN ×3 (12:46)
--- NOTE | 2018-04-30 13:37 | P.OP ---
Date of Procedure: 04/30/18 Preoperative Diagnosis: Severe osteoarthritis left hip Postoperative Diagnosis: Severe osteoarthritis left hip Procedure(s) Performed: Left total hip arthroplasty with a direct anterior approach Implants: Marks [employer] nephew Polarstem size 5 standard [employer] R3, 3 hole acetabular shell, 54 mm [employer] reflection 6.5 mm cancellus screw, 20 mm 2 [employer] R3, XLPE 20 acetabular liner [employer]hew Oxinium femoral head 36 m, +8 All components were press-fit. The articulation is Oxinium on polyethylene. Anesthesia: spinal Surgeon: Alan Murillo Supply Chain Coordinator #1: Roula Walden Estimated Blood Loss (ml): 350 (119 mL returned in Cell Saver) Pathology: other Condition: stable Disposition: PACU Indications for Procedure: After failure of conservative treatment we discussed the surgical and nonsurgical treatment options at length. Patient wishes to proceed with a total hip arthroplasty with a direct anterior approach. Complications specific to this procedure were discussed at length, including but not limited to infection, leg length discrepancy, dislocation, and nerve injury. Patient is aware of all these complications and informed consent was obtained Operative Findings: The operative findings are consistent with severe osteoarthritis the left hip Description of Procedure: Patient was seen and evaluated in the preoperative area, consent was reviewed, and the surgical site was marked with a skin marker. Patient was then brought to the operating room and given prophylactic antibiotics intravenously. 1 g of Tranexamic acid was also given. A spinal anesthetic was administered by the anesthesia department. The patient was then placed on the [place] table with the bony prominences well-padded. The hip area was then prepped and draped in usual sterile fashion. A universal timeout was then performed, which confirmed the patient's name, surgical site, ALLERGIES, and procedure being performed. Next the incision site was located at 1 cm distal and 1 cm lateral to the anterior superior iliac spine. The skin and subcutaneous tissues were sharply incised. Incision was carefully dissected down to the fascia overlying the tensor fascia faiza muscle. This fascia was then incised in line with the incision. Next, using blunt finger dissection, the tensor fascia faiza muscle was dissected off its investing fascia. The muscle was then carefully retracted laterally with a cobra retractor over the lateral neck of the femur. Next, the circumflex vessels were identified and cauterized using the AquaMantis device. The anterior hip capsule was then exposed. The capsule was then opened and an inverted T fashion. Cobra retractors were then placed intracapsularly. The proximal femur was then visualized. The femoral neck was then osteotomized appropriate level above the lesser trochanter. Small amount of traction was placed with the [place] table. A small wedge of bone was then removed from the remaining femoral head. Next, using a corkscrew femoral head was easily removed from the acetabulum. On gross visual inspection, the femoral head had complete loss of articular cartilage in multiple periarticular osteophytes. Attention was then turned to the acetabulum. the acetabulum was exposed and any remaining labrum was excised. Sequential reaming of the acetabulum was performed using fluoroscopic guidance. When the appropriate size was reached, a trial was then placed. The position and fit of the trial was checked with fluoroscopy. The trial was then removed. Then, using fluoroscopic guidance, the final implant was impacted at 20 of anteversion and 40 of abduction, and fully seated in the acetabulum. 2 screws were then placed in the acetabulum. Again fluoroscopy was used to check position of the screws. Next, the liner was then impacted, with a 20 elevated liner located in the anterior superior quadrant. Component locking was confirmed. Attention was then directed to the femur. With the aid of the [place] table, the femur was externally rotated to approximately 130, extended, and abducted under the opposite leg. A side hook was then placed under the proximal femur, and the side hook elevator was used to elevate the proximal femur. Retractors were then placed. A capsular release was performed, as well as a release of the conjoined tendon, which afforded excellent visualization of the proximal femur. Next, a box osteotome was used to lateralize the proximal femur. A hand woven carpet and rug mender was then used to locate the femoral canal. Sequential broaching was then performed with appropriate size which afforded excellent fixation in the proximal femur. A trial was then placed with appropriate head and neck, and the hip was gently reduced with the aid of the [place] table. Fluoroscopy was then used to check position of the components, as well as to ensure equal leg lengths. The hip was then gently dislocated and the trials were then removed. Final implants were then impacted and the hip was again reduced. Final fluoroscopic x-rays confirmed that the components were in anatomic position, as well as equal leg lengths. The hip was also taken through range of motion, and found to be stable. The hip was then copiously irrigated with antibiotic solution with pulsatile lavage. The hip was then irrigated with Irrisept solution. The soft tissues were then injected with a ropivacaine solution, which consisted of 246.25 mg of ropivacaine, 0.5 mg of epinephrine, 30 mg of Toradol, 80 g of clonidine, and 48.45 mL of sterile water, for a total of 100 mL of fluid injected. A second dose of 1 g of Tranexamic acid was also given. the fascia was then closed with 2-0 strata fix suture. The subcutaneous tissue was closed with 3-0 Vicryl. The subcuticular tissue was closed with 3-0 strata fix suture. The skin was then closed with Dermabond glue and a sterile silver dressing. The patient was then transferred to the recovery room in stable condition. The esl instructional assistant TEMO Zuluaga was required due to the complexity of surgery, and the need for skilled animal care assistant for positioning, draping, exposure, retraction, and closure of the wound.
--- NOTE | 2018-04-30 14:25 | XR ---
Left hip Limited HISTORY: Status post left hip arthroplasty Single frontal view of the left hip Ration is status post left hip arthroplasty. There is anatomic alignment. Lucency present in the soft tissues compatible with postop state. IMPRESSION: Orthopedic follow-up.
--- NOTE | 2018-04-30 17:29 | XR ---
Limited left hip HISTORY: Anterior hip replacement 2 intraoperative C-arm images document the procedure.
--- NOTE | 2018-04-30 17:53 | FL ---
Fluoroscopy HISTORY: Hip replacement 53 seconds fluoroscopy time supplied to the referring clinician. 2 intraoperative C-arm images docum ent the procedure. See dictated report from orthopedic surgery.
[2018-04-30] MEDS: SODIUM CHLORIDE 0.9% 1,000 ML IV SCH (18:54)
[2018-04-30] MEDS: ceFAZolin IN SWFI 2 GM/20 ML SYRINGE IVP SCH (19:58)
[2018-04-30] MEDS: ATENOLOL 25 MG TAB PO SCH (19:58)
[2018-04-30] MEDS ORDERED: SENNOSIDES-DOCUSATE SODIUM 1 EACH TAB PO SCH (21:00)
[2018-05-01 01:48] VITALS: RESP 16
[2018-05-01] MEDS: ceFAZolin IN SWFI 2 GM/20 ML SYRINGE IVP SCH (05:32)
[2018-05-01] MEDS: SODIUM CHLORIDE 0.9% 1,000 ML IV SCH (05:33)
[2018-05-01] MEDS: LACTATED RINGERS 1,000 ML IV SCH (05:34)
[2018-05-01 07:39] VITALS: BP 120/67; PULSE 91; TEMP 98.1
[2018-05-01] MEDS ORDERED: TAMSULOSIN 0.4 MG CAP.ER.24H PO SCH (09:00)
[2018-05-01] MEDS ORDERED: MELOXICAM 7.5 MG TAB PO SCH (09:00)
[2018-05-01] MEDS ORDERED: RIVAROXABAN 10 MG TAB PO SCH (09:00)
[2018-05-01] MEDS ORDERED: ALLOPURINOL 300 MG TAB PO SCH (09:00)
[2018-05-01] MEDS: ATENOLOL 25 MG TAB PO SCH (09:20)
--- NOTE | 2018-05-01 09:35 | P.DS ---
Providers Date of admission: 04/30/18 10:11 Expected date of discharge: 05/01/18 Attending physician: Alan Murillo Consults: 04/30/18 12:46 Consult Physician Routine Consulting Provider: Ursula Turner Consult Reason/Comments: medical management and anticoagulation Do you want consulting provider notified?: Yes Primary care physician: [facility] - Discharge Diagnosis(es) (1) Primary osteoarthritis of left hip Current Visit: Yes Status: Acute (2) S/P total hip arthroplasty Current Visit: Yes Status: Acute Hospital Course: This is a 77-year-old male with known history of degenerative arthritis of the left hip. The patient presents for evaluation. After discussion and consideration patient elects to proceed with total hip arthroplasty. The patient is seen preoperatively by Dr. Murillo and medically cleared for surgery by their primary care physician. Patient is admitted to [facility] on 04/30/2018 for total hip arthroplasty. The procedures performed without complication or sequelae. The patient is doing well postoperatively. Labs and vital signs are stable on day of discharge. On day of discharge patient's hip incision is healing well. There is minimal erythema. There is no drainage noted at this time. There is minimal soft tissue swelling to the hip and thigh. Patient has full foot and ankle motion without difficulty or pain. Neurovascular status to the left lower extremity is intact. Patient is discharged home in good condition. Please see med rec for accurate list of home medications. Plan - Discharge Summary Discharge Rx Participant: No New Discharge Prescriptions: New HYDROcodone/APAP 5-325MG [[place] 5-325] 1 - 2 tab PO Q4-6H PRN #84 tab PRN Reason: Pain Sennosides [Senokot] 1 tab PO BID #60 tablet No Action Tamsulosin HCl [Flomax] 0.4 mg PO DAILY Ranitidine HCl 150 mg PO BID Allopurinol [Zyloprim] 300 mg PO DAILY Atenolol 25 mg PO BID amLODIPine [Norvasc] 5 mg PO DAILY #30 tab Rivaroxaban [Xarelto] 15 mg PO DAILY HYDROcodone/APAP 5-325MG [[place] 5-325] 1 tab PO BID PRN PRN Reason: Pain Cholecalciferol (Vitamin D3) [Vitamin D3] 2,000 unit PO DAILY Discharge Medication List Allopurinol [Zyloprim] 300 mg PO DAILY 01/03/18 [History] Atenolol 25 mg PO BID 01/03/18 [History] Ranitidine HCl 150 mg PO BID 01/03/18 [History] Tamsulosin HCl [Flomax] 0.4 mg PO DAILY 01/03/18 [History] amLODIPine [Norvasc] 5 mg PO DAILY #30 tab 01/05/18 [Rx] Cholecalciferol (Vitamin D3) [Vitamin D3] 2,000 unit PO DAILY 04/18/18 [History] HYDROcodone/APAP 5-325MG [[place]udson 5-325] 1 tab PO BID PRN 04/18/18 [History] Rivaroxaban [Xarelto] 15 mg PO DAILY 04/18/18 [History] HYDROcodone/APAP 5-325MG [[place] 5-325] 1 - 2 tab PO Q4-6H PRN #84 tab 05/01/18 [ Rx] Sennosides [Senokot] 1 tab PO BID #60 tablet 05/01/18 [Rx] Follow up Appointment(s)/Referral(s): Alan Murillo DO [Doctor of Osteopathic Medicine] - 2 Weeks Activity/Diet/Wound Care/Special Instructions: Weightbearing as tolerated with walker Leave dressing intact. Dressing may be removed by home care nurse in 10 days. May shower with dressing on. Follow-up with [facility] in 2 weeks, please call with any questions or concerns [phone] Discharge Disposition: HOME WITH HOME HEALTH SERVICES
[2018-05-01 09:48] LABS: Basophils % (A) 0 %; Eosinophils % (A) 0 %; HCT 40.8 % (39.0-53.0); Hypochromasia Slight; Lymphocytes # (A) 0.8 k/uL (1.0-4.8); Lymphocytes % (A) 7 %; MCH 31.4 pg (25.0-35.0); MCHC 31.7 g/dL (31.0-37.0); MCV 98.8 fL (80.0-100.0); Mean Platelet Volume 7.5; Monocytes # (A) 0.7 k/uL (0-1.0); Monocytes % (A) 6 %; Neutrophils # (A) 9.3 k/uL (1.3-7.7); Neutrophils % (A) 85 %; Platelet Count 100 k/uL (150-450); RBC 4.13 m/uL (4.30-5.90); WBC 10.9 k/uL (3.8-10.6)
--- NOTE | 2018-05-01 11:54 | P.CONS ---
History of Present Illness - History of Present Illness this is a pleasant 77 yo M with pmh of a fib, copd, GERD, prostate disease, psoriasis , gout, and osteoarthritis and degenerative joint disease. Presents for total left hip arthroplasty which was done on 04/30/2018 and underwent been asked to consult for medical management. Patient was sitting at bedside, complaining from minimal pain at the surgical site. No chest pain. No abdominal pain. No dyspnea. No change in urine bowel habits. Vomiting. No fever. Patient and his at bedside telling me he is taken Toprol and 0 for his A. fib and that they're going to follow up with Dr. Oscar his wader boot top assembler and they have the follow-up date in this coming May at home or ligament seen. Patient was noticed to have mild leukocytosis trending down as per patient was taken steroids prior to admission for his gout which is now stopped. Instructed patient and family to follow-up his WBC one sees his doctor and they understood verbalized understanding and acceptance and said it back to me . Review of Systems CONSTITUTIONAL: No fever, no malaise, no fatigue. HEENT: No recent visual problems or hearing problems. Denied any sore throat. CARDIOVASCULAR: No orthopnea, PND, no palpitations, no syncope. PULMONARY: No shortness of breath, no cough, no hemoptysis. GASTROINTESTINAL: No diarrhea, no nausea, no vomiting, no abdominal pain. Normoactive bowel sounds. NEUROLOGICAL: No headaches, no weakness, no numbness. HEMATOLOGICAL: Denies any bleeding or petechiae. GENITOURINARY: Denies any burning micturition, frequency, or urgency. MUSCULOSKELETAL/RHEUMATOLOGICAL: Denies any joint pain, swelling, or any muscle pain. ENDOCRINE: Denies any polyuria or polydipsia. Past Medical History Past Medical History: Atrial Fibrillation, Cancer, COPD, GERD/Reflux, Hyperlipidemia, Hypertension, Osteoarthritis (OA), Prostate Disorder, Renal Disease, Skin Disorder Additional Past Medical History / Comment(s): PSORIASIS, GOUT, ELEVATED PSA, SKIN CANCER ., HX OF BLEEDING STOMACH ULCER., HX OF ACUTE RENAL FAILURE, BACK PAIN , LEFT LEG PAIN, GOUT IN ANKLES & TOES., STATES RECENT STEROID INJECTIONS AND PREDNISONE DOSE PACK. History of Any Multi-Drug Resistant Organisms: None Reported Past Surgical History: Appendectomy, Back Surgery Additional Past Surgical History / Comment(s): 4 back surgeries, PROCEDURE FOR BLEEDING STOMACH ULCER. Past Anesthesia/Blood Transfusion Reactions: No Reported Reaction Past Psychological History: No Psychological Hx Reported Smoking Status: Heavy tobacco smoker Past Alcohol Use History: None Reported Additional Past Alcohol Use History / Comment(s): SMOKES 1 PPD. SMOKING FOR 50 YEARS. Past Drug Use History: None Reported - Past Family History Mother Family Medical History: Cancer Additional Family Medical History / Comment(s): cirriosis Father Family Medical History: No Reported History Brother(s) Family Medical History: Cancer Additional Family Medical History / Comment(s): COLON CANCER Medications and Allergies Home Medications Medication Instructions Recorded Confirmed Type Allopurinol [Zyloprim] 300 mg PO DAILY 01/03/18 04/30/18 History Atenolol 25 mg PO BID 01/03/18 04/30/18 History Ranitidine HCl 150 mg PO BID 01/03/18 04/30/18 History Tamsulosin HCl [Flomax] 0.4 mg PO DAILY 01/03/18 04/30/18 History amLODIPine [Norvasc] 5 mg PO DAILY #30 tab 01/05/18 04/30/18 Rx Cholecalciferol (Vitamin D3) 2,000 unit PO DAILY 04/18/18 04/30/18 History [Vitamin D3] HYDROcodone/APAP 5-325MG [[place] 1 tab PO BID PRN 04/18/18 04/30/18 History 5-325] Rivaroxaban [Xarelto] 15 mg PO DAILY 04/18/18 04/30/18 History HYDROcodone/APAP 5-325MG [[place] 1 - 2 tab PO Q4-6H PRN #45 tab 05/01/18 Rx 5-325] Sennosides [Senokot] 1 tab PO BID #60 tablet 05/01/18 Rx Allergies Allergy/AdvReac Type Severity Reaction Status Date / Time No Known Allergies Allergy Verified 04/30/18 18:14 Physical Exam Vitals: Vital Signs Temp Pulse Pulse Resp BP BP Pulse Ox 05/01/18 07:00 98.1 F 91 16 120/67 95 04/30/18 23:47 97.7 F 89 16 108/70 95 04/30/18 20:00 97.2 F L 80 18 107/72 96 04/30/18 17:32 96.8 F L 62 17 113/72 97 04/30/18 16:45 63 16 130/71 100 04/30/18 16:15 78 16 127/63 97 04/30/18 15:45 64 16 116/76 98 04/30/18 15:15 72 16 115/63 96 04/30/18 15:00 71 17 124/60 95 04/30/18 14:45 78 16 132/60 97 04/30/18 14:30 64 16 129/73 97 04/30/18 14:15 69 16 120/73 100 04/30/18 13:59 97.0 F L 68 16 128/65 95 04/30/18 11:47 97.5 F L 87 18 120/66 94 L Intake and Output 04/30/18 05/01/18 05/01/18 22:59 06:59 14:59 Intake Total 247.5 Output Total 200 Balance 247.5 -200 Intake: IV 20 Intake, IV Titration 227.5 Amount Sodium Chloride 0.9% 1, 227.5 000 ml @ 65 mls/hr IV . [id number] [facility] Rx#:[id number] Output: Urine 200 Other: Voiding Method Toilet # Voids 2 Weight 90.718 kg GENERAL: The patient is alert and oriented x3, not in any acute distress. Well developed, well nourished. HEENT: Pupils are round and equally reacting to light. EOMI. No scleral icterus. No conjunctival pallor. Normocephalic, atraumatic. No pharyngeal erythema. No thyromegaly. CARDIOVASCULAR: S1 and S2 present. No murmurs, rubs, or gallops. PULMONARY: Chest is clear to auscultation, no wheezing or crackles. ABDOMEN: Soft, nontender, nondistended, normoactive bowel sounds. No palpable organomegaly. MUSCULOSKELETAL: No joint swelling or deformity. EXTREMITIES: No cyanosis, clubbing, or pedal edema. NEUROLOGICAL: Gross neurological examination did not reveal any focal deficits. SKIN: No rashes. Results CBC & Chem 7: 05/01/18 06:58 Labs: Abnormal Lab Results - Last 24 Hours (Table) 04/30/18 05/01/18 Range/Units 11:29 06:58 WBC 10.9 H (3.8-10.6) k/uL RBC 4.13 L (4.30-5.90) m/uL Plt Count 100 L (150-450) k/uL Neutrophils # 9.3 H (1.3-7.7) k/uL Lymphocytes # 0.8 L (1.0-4.8) k/uL POC Glucose (mg/dL) 107 H (75-99) mg/dL Assessment and Plan Assessment: History of degenerative joint disease, status post left total hip arthroplasty History of A. fib, rate controlled Leukocytosis, mostly reactive. Her, and close follow-up History of osteoarthritis Psoriasis history of gout BPH Plan: This is a pleasant 77 years old male who presents for left hip arthroplasty. Continue with same treatment. Continue symptomatic treatment. Resume home medication. Monitor vitals. His leukocytosis is mostly reactive due to medication and surgery, Trending down. Recommend close follow-up as his WBC tablets normalized. Denies symptoms of overt infection. No respiratory or urinary symptoms. No rash or change in bowel habits. Antibiotics at this point has more risks and benefits. We are comment DVT and GI prophylaxis. Pain management and DVT prophylaxis as per primary team. Further recommendations based on the clinical course of the patient's. Prognosis guarded Patient was instructed to follow up with his PCP within one week. [facility] And follow-up with his wader boot top assembler as recommended. Please follow up with his orthopedic team as per primary team Thank you for consulting us, please feel free to contact us for any further question or clarification.
== END 2018-05-01 12:37 | disposition home health service (06) | DRG 470 ==
LOC: 2ORMAIN 10:11 → 3SUR 17:07
PROVIDERS: ADMIT Orthopaedic Surgery; ATTEND Orthopaedic Surgery
PROC: 30233N0 Transfusion of Autologous Red Blood Cells into Peripheral Vein, Percutaneous Approach (ICD-10-PCS; 2018-04-30)
PROC: 0SRB06A Replacement of Left Hip Joint with Oxidized Zirconium on Polyethylene Synthetic Substitute, Uncemented, Open Approach (ICD-10-PCS; principal; 2018-04-30 12:00)
DX: M16.12 Unilateral primary osteoarthritis, left hip (principal); I27.20 Pulmonary hypertension, unspecified; I48.0 Paroxysmal atrial fibrillation; I34.0 Nonrheumatic mitral (valve) insufficiency; J44.9 Chronic obstructive pulmonary disease, unspecified; G47.33 Obstructive sleep apnea (adult) (pediatric); I10 Essential (primary) hypertension; K21.9 Gastro-esophageal reflux disease without esophagitis; N40.0 Benign prostatic hyperplasia without lower urinary tract symptoms; L40.9 Psoriasis, unspecified; M10.9 Gout, unspecified; E78.5 Hyperlipidemia, unspecified; M54.9 Dorsalgia, unspecified; R97.20 Elevated prostate specific antigen [PSA]; F17.210 Nicotine dependence, cigarettes, uncomplicated; Z71.6 Tobacco abuse counseling; Z79.01 Long term (current) use of anticoagulants; Z79.899 Other long term (current) drug therapy; Z85.828 Personal history of other malignant neoplasm of skin; Z87.11 Personal history of peptic ulcer disease; Z87.448 Personal history of other diseases of urinary system; Z90.49 Acquired absence of other specified parts of digestive tract; Z80.0 Family history of malignant neoplasm of digestive organs; Z83.79 Family history of other diseases of the digestive system
CPT/HCPCS: 73501; 85025; 86850; 86891; 86900; 86901; 88300

== ENCOUNTER 2018-06-03 07:32 | Observation (INO) | payer MEDICARE, BC ==
[2018-06-03] MEDS ORDERED: SODIUM CHLORIDE 0.9% 1,000 ML IV STA (07:58)
--- NOTE | 2018-06-03 08:03 | ED ---
General Adult HPI - General Chief complaint: GI Bleed Stated complaint: GI BLEED Time Seen by Provider: 06/03/18 07:50 Source: patient, family, RN notes reviewed Mode of arrival: ambulatory Limitations: no limitations - History of Present Illness Initial comments: Patient 77-year-old male seen. Past medical history for Yu liu, status post hip surgery times one month, presented to the emergency room today with a chief complaint of blood in his stool. Patient does admit that he noticed some blood yesterday. He states that today he had looser stool that was bright red blood. Patient denies any other complaints or symptoms. Does admit that he is on a blood thinner of Xarelto. Patient denies any other complaints or symptoms currently. Patient denies any recent fever, chills, shortness of breath, chest pain, back pain, abdominal pain, nausea or vomiting, numbness or tingling, headaches or visual changes, or any other complaints. - Related Data Home Medications Medication Instructions Recorded Confirmed Allopurinol [Zyloprim] 300 mg PO DAILY 01/03/18 06/03/18 Atenolol 25 mg PO BID 01/03/18 06/03/18 Ranitidine HCl 150 mg PO BID 01/03/18 06/03/18 Tamsulosin HCl [Flomax] 0.4 mg PO DAILY 01/03/18 06/03/18 Cholecalciferol (Vitamin D3) 2,000 unit PO DAILY 04/18/18 06/03/18 [Vitamin D3] Rivaroxaban [Xarelto] 15 mg PO DAILY 04/18/18 06/03/18 Cyclobenzaprine [Flexeril] 10 mg PO HS 06/03/18 06/03/18 Previous Rx's Medication Instructions Recorded amLODIPine [Norvasc] 5 mg PO DAILY #30 tab 01/05/18 HYDROcodone/APAP 5-325MG [[place] 1 - 2 tab PO Q4-6H PRN #45 tab 05/01/18 5-325] Sennosides [Senokot] 1 tab PO BID #60 tablet 05/01/18 Allergies Allergy/AdvReac Type Severity Reaction Status Date / Time No Known Allergies Allergy Verified 06/03/18 08:06 Review of Systems ROS Statement: Those systems with pertinent positive or pertinent negative responses have been documented in the HPI. ROS Other: All systems not noted in ROS Statement are negative. Past Medical History Past Medical History: Atrial Fibrillation, COPD, Hyperlipidemia, Hypertension, Prostate Disorder, Renal Disease Additional Past Medical History / Comment(s): gout, PSA elevated, acute renal failure since 11/2017 History of Any Multi-Drug Resistant Organisms: None Reported Past Surgical History: Back Surgery Additional Past Surgical History / Comment(s): 4 back surgeries Past Anesthesia/Blood Transfusion Reactions: No Reported Reaction Past Psychological History: No Psychological Hx Reported Smoking Status: Heavy tobacco smoker Past Alcohol Use History: None Reported Past Drug Use History: None Reported - Past Family History Mother Family Medical History: Cancer Additional Family Medical History / Comment(s): cirriosis Father Family Medical History: No Reported History Brother(s) Family Medical History: Cancer Additional Family Medical History / Comment(s): COLON CANCER General Exam - General Exam Comments Initial Comments: General: The patient is awake and alert, in no distress, and does not appear acutely ill. Eye: There is normal conjunctiva bilaterally. No signs of icterus. Ears, nose, mouth and throat: There are moist mucous membranes and no oral lesions. Neck: The neck is supple, there is no tenderness or JVD. Cardiovascular: There is a regular rate and rhythm. No murmur, rub or gallop is appreciated. Respiratory: Lungs are clear to auscultation, respirations are non-labored, breath sounds are equal. No wheezes, stridor, rales, or rhonchi. Gastrointestinal: Soft, non-distended, non-tender abdomen without masses or organomegaly noted. There is no rebound or guarding present. No CVA tenderness. Musculoskeletal: Normal ROM, no tenderness. Sensation intact. Neurological: A&O x 3. CN II-XII intact, There are no obvious motor or sensory deficits. Coordination appears grossly intact. Speech is normal. Skin: Skin is warm and dry and no rashes or lesions are noted. Psychiatric: Cooperative, appropriate mood & affect, normal judgment. : Normal rectal tone. Guaiac positive. Limitations: no limitations Course Vital Signs 06/03/18 06/03/18 06/03/18 07:34 07:43 08:00 Temperature 97.6 F Pulse Rate 103 H 93 Respiratory 18 20 Rate Blood Pressure 170/86 140/104 O2 Sat by Pulse 99 92 L 93 L Oximetry EKG Findings - EKG Comments: EKG Findings:: EKG performed at 0749: Shows A. fib with RVR to 102 bpm. QRS 96 QT/QTC 378/492. No acute ST changes Medical Decision Making - Medical Decision Making Patient's guaiac positive. Patient's hemoglobin stable. Vitals are stable. Patient has had bright red blood in stool beginning yesterday. No bloody bowel movement here in the emergency room. Patient will be admitted for serial H&H. - Lab Data Result diagrams: 06/03/18 07:58 06/03/18 07:58 Lab Results 06/03/18 06/03/18 06/03/18 Range/Units 07:58 07:58 07:58 WBC 6.7 (3.8-10.6) k/uL RBC 4.38 (4.30-5.90) m/uL Hgb 13.2 (13.0-17.5) gm/dL Hct 40.4 (39.0-53.0) % MCV 92.4 D (80.0-100.0) fL MCH 30.1 (25.0-35.0) pg MCHC 32.6 (31.0-37.0) g/dL RDW 15.1 (11.5-15.5) % Plt Count 186 D (150-450) k/uL Neutrophils % 69 % Lymphocytes % 19 % Monocytes % 7 % Eosinophils % 4 % Basophils % 0 % Neutrophils # 4.6 (1.3-7.7) k/uL Lymphocytes # 1.2 (1.0-4.8) k/uL Monocytes # 0.5 (0-1.0) k/uL Eosinophils # 0.2 (0-0.7) k/uL Basophils # 0.0 (0-0.2) k/uL Hypochromasia Slight Poikilocytosis Slight PT (9.0-12.0) sec INR (<1.2) APTT (22.0-30.0) sec Sodium 143 (137-145) mmol/L Potassium 4.2 (3.5-5.1) mmol/L Chloride 111 H (98-107) mmol/L Carbon Dioxide 23 (22-30) mmol/L Anion Gap 9 mmol/L BUN 21 H (9-20) mg/dL Creatinine 1.22 (0.66-1.25) mg/dL Est GFR (CKD-EPI)AfAm 66 (>60 ml/min/1.73 sqM) Est GFR (CKD-EPI)NonAf 57 (>60 ml/min/1.73 sqM) Glucose 116 H (74-99) mg/dL Calcium 9.5 (8.4-10.2) mg/dL Total Bilirubin 0.4 (0.2-1.3) mg/dL AST 15 L (17-59) U/L ALT 15 L (21-72) U/L Alkaline Phosphatase 80 (38-126) U/L Total Protein 6.6 (6.3-8.2) g/dL Albumin 3.7 (3.5-5.0) g/dL Stool Occult Blood Positive (Negative) 06/03/18 Range/Units 07:58 WBC (3.8-10.6) k/uL RBC (4.30-5.90) m/uL Hgb (13.0-17.5) gm/dL Hct (39.0-53.0) % MCV (80.0-100.0) fL MCH (25.0-35.0) pg MCHC (31.0-37.0) g/dL RDW (11.5-15.5) % Plt Count (150-450) k/uL Neutrophils % % Lymphocytes % % Monocytes % % Eosinophils % % Basophils % % Neutrophils # (1.3-7.7) k/uL Lymphocytes # (1.0-4.8) k/uL Monocytes # (0-1.0) k/uL Eosinophils # (0-0.7) k/uL Basophils # (0-0.2) k/uL Hypochromasia Poikilocytosis PT 10.8 (9.0-12.0) sec INR 1.1 (<1.2) APTT 28.5 (22.0-30.0) sec Sodium (137-145) mmol/L Potassium (3.5-5.1) mmol/L Chloride (98-107) mmol/L Carbon Dioxide (22-30) mmol/L Anion Gap mmol/L BUN (9-20) mg/dL Creatinine (0.66-1.25) mg/dL Est GFR (CKD-EPI)AfAm (>60 ml/min/1.73 sqM) Est GFR (CKD-EPI)NonAf (>60 ml/min/1.73 sqM) Glucose (74-99) mg/dL Calcium (8.4-10.2) mg/dL Total Bilirubin (0.2-1.3) mg/dL AST (17-59) U/L ALT (21-72) U/L Alkaline Phosphatase (38-126) U/L Total Protein (6.3-8.2) g/dL Albumin (3.5-5.0) g/dL Stool Occult Blood (Negative) Disposition Clinical Impression: GI bleed Disposition: ADMITTED IP TO THIS HOSP Condition: Stable Is patient prescribed a controlled substance at d/c from ED?: No Referrals: [facility],Clinic [Primary Care Provider] - 1-2 days Time of Disposition: 09:18
[2018-06-03 08:25] LABS: Basophils % (A) 0 %; Eosinophils # (A) 0.2 k/uL (0-0.7); Eosinophils % (A) 4 %; HCT 40.4 % (39.0-53.0); HGB 13.2 gm/dL (13.0-17.5); Hypochromasia Slight; Lymphocytes # (A) 1.2 k/uL (1.0-4.8); Lymphocytes % (A) 19 %; MCH 30.1 pg (25.0-35.0); MCHC 32.6 g/dL (31.0-37.0); Mean Platelet Volume 6.8; Monocytes # (A) 0.5 k/uL (0-1.0); Monocytes % (A) 7 %; Neutrophils # (A) 4.6 k/uL (1.3-7.7); Neutrophils % (A) 69 %; Poikilocytosis Slight; RBC 4.38 m/uL (4.30-5.90); RDW 15.1 % (11.5-15.5); WBC 6.7 k/uL (3.8-10.6)
[2018-06-03 08:28] LABS: INR 1.1 (<1.2); MCV 92.4 fL (80.0-100.0); Partial Thromboplastin Time 28.5 sec (22.0-30.0); Platelet Count 186 k/uL (150-450); Prothrombin Time 10.8 sec (9.0-12.0)
[2018-06-03 08:29] LABS: Albumin 3.7 g/dL (3.5-5.0); Calcium 9.5 mg/dL (8.4-10.2); Potassium 4.2 mmol/L (3.5-5.1); Total Bilirubin 0.4 mg/dL (0.2-1.3); Total Protein 6.6 g/dL (6.3-8.2)
[2018-06-03] MEDS ORDERED: SODIUM CHLORIDE 0.9% 1,000 ML IV ONE (09:19)
[2018-06-03] MEDS ORDERED: NALOXONE 0.4 MG/ML 1 ML VIAL IV PRN (09:19)
[2018-06-03] MEDS ORDERED: PANTOPRAZOLE 40 MG/10 ML VIAL IVP STA (09:20)
--- NOTE | 2018-06-03 12:05 | P.CONS ---
History of Present Illness - Reason for Consult Consult date: 06/03/18 GI bleed Requesting physician: Abisai Abrams - Chief Complaint Rectal bleeding - History of Present Illness 77-year-old gentleman history of atrial fibrillation maintained on Xarelto, left total hip surgery 1 month ago presents with painless rectal bleeding burgundy red-colored bowel movements 1 day. Denies fever chills, hematemesis or melena. No history of GI bleeding. Patient passed 3 mildly blood tinged bowel movements yesterday described as burgundy in color. Patient passed a larger bowel movement this morning. No history of colonoscopy or GI bleeding. Denies weight loss. No NSAIDs or aspirin. Admission hemoglobin 13.2 previously 13 1 month ago. MCV 92 platelet 186. INR 1.1. BUN 21. Creatinine 1.2. FOBT positive. Review of Systems Constitutional: Denies fever, chills, sweats, weight gain, or loss. HEENT: Negative for migraines, blurred vision or loss, earaches, drainage, tinnitus, oral mucosal lesions, dysphagia, or odynophagia. Cardiac: Negative for chest pain, arrhythmias, or palpitation. Respiratory: Negative for shortness of breath, hemoptysis, cough, or sputum production. Gastrointestinal: See HPI for pertinent findings. Genitourinary: Negative for hematuria, urgency, frequency, polyuria, dysuria, or penile discharge. Musculoskeletal: Negative for muscle aches, swelling, arthritis, and arthralgias. Neurologic: Negative for stroke or TIA. Endocrine: Negative for thyroid problems. Skin: Negative for rash or itching. Psychiatric: Negative history for depression and anxiety Past Medical History Past Medical History: Atrial Fibrillation, Cancer, COPD, Hyperlipidemia, Hypertension, Osteoarthritis (OA), Prostate Disorder, Renal Disease, Skin Disorder Additional Past Medical History / Comment(s): 1960s had bleeding stomach ulcer with surgery, acute renal failure 11/2017, elevated PSA, gout bilateral ankles and toes both feet, chronic back pain-does not tolerate supine position, psoriasis, skin cancer with removals. History of Any Multi-Drug Resistant Organisms: None Reported Past Surgical History: Appendectomy, Back Surgery, Joint Replacement Additional Past Surgical History / Comment(s): 04/30/18 total L hip arthroplasty , gastric surgery for bleeding ulcer, 4 back surgeries, skin cancer removals Past Anesthesia/Blood Transfusion Reactions: No Reported Reaction Smoking Status: Current every day smoker - Past Family History Mother Family Medical History: Cancer, Skin Disorder Additional Family Medical History / Comment(s): Psoriasis, unknown to pt type of cancer. Father Family Medical History: No Reported History Additional Family Medical History / Comment(s): Father was healthy Brother(s) Family Medical History: Cancer Additional Family Medical History / Comment(s): COLON CANCER Medications and Allergies Home Medications Medication Instructions Recorded Confirmed Type Allopurinol [Zyloprim] 300 mg PO DAILY 01/03/18 06/03/18 History Atenolol 25 mg PO BID 01/03/18 06/03/18 History Ranitidine HCl 150 mg PO BID 01/03/18 06/03/18 History Tamsulosin HCl [Flomax] 0.4 mg PO DAILY 01/03/18 06/03/18 History amLODIPine [Norvasc] 5 mg PO DAILY #30 tab 01/05/18 06/03/18 Rx Cholecalciferol (Vitamin D3) 2,000 unit PO DAILY 04/18/18 06/03/18 History [Vitamin D3] Rivaroxaban [Xarelto] 15 mg PO DAILY 04/18/18 06/03/18 History HYDROcodone/APAP 5-325MG [[place] 1 - 2 tab PO Q4-6H PRN #45 tab 05/01/18 Rx 5-325] Sennosides [Senokot] 1 tab PO BID #60 tablet 05/01/18 06/03/18 Rx Cyclobenzaprine [Flexeril] 10 mg PO HS 06/03/18 06/03/18 History Allergies Allergy/AdvReac Type Severity Reaction Status Date / Time No Known Allergies Allergy Verified 06/03/18 08:06 Physical Exam Vitals: Vital Signs Temp Pulse Resp BP Pulse Ox 06/03/18 09:53 80 18 146/95 93 L 06/03/18 09:00 98 23 146/100 90 L 06/03/18 08:30 80 16 120/87 94 L 06/03/18 08:00 93 20 140/104 93 L 06/03/18 07:43 92 L 06/03/18 07:34 97.6 F 103 H 18 170/86 99 Intake and Output 06/02/18 06/03/18 06/03/18 22:59 06:59 14:59 Other: Weight 90.718 kg General appearance: The patient is alert, oriented, in no acute distress. HET: Head is normocephalic and atraumatic. Pupils are equal and reactive. Oropharynx is clear without lesions. Neck: Supple without lymphadenopathy. Trachea midline. Heart: S1 S2. Regular rate and rhythm. Lungs: No crackles or wheezes are heard. Abdomen: Soft, nontender, nondistended with bowel sounds. No peritoneal signs. No palpable organomegaly or masses. Extremities: Normal skin color and turgor. No cyanosis, rash, ulceration, clubbing, or edema. Radial and pedal pulses are 2/4 bilaterally. Neurological: No focal deficits. Strength and sensation are grossly intact. Results CBC & Chem 7: 06/03/18 13:53 06/03/18 07:58 Labs: Abnormal Lab Results - Last 24 Hours (Table) 06/03/18 Range/Units 07:58 Chloride 111 H (98-107) mmol/L BUN 21 H (9-20) mg/dL Glucose 116 H (74-99) mg/dL AST 15 L (17-59) U/L ALT 15 L (21-72) U/L Assessment and Plan (1) Hematochezia Narrative/Plan: 77-year-old gentleman admitted with acute lower GI bleed painless rectal bleeding recent total hip surgery 1 month ago contained on anticoagulation possible colonic diverticular bleeding. Upper GI source cannot be entirely excluded but felt to be less likely. Current Visit: Yes Status: Acute Code(s): K92.1 - MELENA SNOMED Code(s): 645364205 (2) GI bleed Current Visit: Yes Status: Acute Code(s): K92.2 - GASTROINTESTINAL HEMORRHAGE, UNSPECIFIED SNOMED Code(s): 89468098 (3) Status post total hip replacement, left Current Visit: No Status: Acute Code(s): Z96.642 - PRESENCE OF LEFT ARTIFICIAL HIP JOINT SNOMED Code(s): 251283102800 Plan: 1. Clear liquid diet. CBC at noon as well as daily monitoring. Protonix 40 mg daily. Tagged RBC scan recommended if bleeding tolerates. 2. Hold anticoagulation. Inpatient endoscopic exam will be contingent on clinical course possibly as early as Sunday. We'll follow closely with you. Thank you for this kind referral and the opportunity to participate in the care of your patient. This consultation was discussed with Dr. Díaz. The impression and plan of care have been directed as dictated.
[2018-06-03 13:09] LABS: Appearance,Urine Clear (Clear); Bilirubin,Urine Negative (Negative); Blood,Urine Negative (Negative); Color,Urine Light Yellow; Glucose,Urine (UA) Negative (Negative); Ketones,Urine Negative (Negative); Leukocyte Esterase,Urine Negative (Negative); Nitrite,Urine Negative (Negative); Protein,Urine Negative (Negative); Specific Gravity,Urine 1.012 (1.001-1.035); Urobilinogen,Urine <2.0 mg/dL (<2.0)
[2018-06-03 14:12] LABS: Basophils % (A) 0 %; Eosinophils # (A) 0.2 k/uL (0-0.7); Eosinophils % (A) 3 %; HCT 41.5 % (39.0-53.0); Hypochromasia Marked; Lymphocytes # (A) 1.3 k/uL (1.0-4.8); Lymphocytes % (A) 19 %; MCH 29.7 pg (25.0-35.0); MCHC 31.4 g/dL (31.0-37.0); MCV 94.5 fL (80.0-100.0); Mean Platelet Volume 6.6; Monocytes # (A) 0.4 k/uL (0-1.0); Monocytes % (A) 6 %; Neutrophils # (A) 4.7 k/uL (1.3-7.7); Neutrophils % (A) 69 %; Platelet Count 163 k/uL (150-450); Poikilocytosis Slight; WBC 6.8 k/uL (3.8-10.6)
--- NOTE | 2018-06-03 16:11 | P.HPIM ---
History of Present Illness H&P Date: 06/03/18 Chief Complaint: Blood in the stool Patient is a 77-year-old male with a known history of atrial fibrillation on anticoagulation with xarelto, left hip arthroplasty about 1 month ago, COPD, hypertension, osteoarthritis and other multiple medical problems came to ER with complaints of rectal bleeding. Patient says that he noticed blueberry shaped bleeding spots in the stool last night and again today. Patient does have maroon-colored spots in the stool. Denied any abdominal pain. Patient did have 2-3 episodes of diarrhea. Denied fever or chills. Denied any hematemesis. FOBT is positive Hemoglobin 13.2 on admission. Patient had a history of stomach ulcer with surgery in . No recent GI bleed or abdominal issues. Patient has been taking anticoagulations just over a month for atrial fibrillation, diagnosed before his hip surgery. Currently denied any complains of headache or dizziness or lightheadedness. No active bleeding at this time. EKG showed atrial fibrillation with rapid regular rate of 102 Review of Systems Constitutional: Patient denies any fever or chills . No generalized weakness or weight loss. Abdomen: Patient denied nausea vomiting and diarrhea and abdominal pain. Blood in the stool. Cardiovascular: Patient denies any chest pain or short of breath no palpitations. Respiratory: patient denied any cough is from production. No shortness of breath Neurologic: Patient denied any numbness or tingling headache. Musculoskeletal: Patient denies any complaints of joint swelling or deformity. Skin: Negative Psychiatric: Negative Endocrine: No heat or cold intolerance. No recent weight gain. Genitourinary: No dysuria or hematuria. All other 14 point ROS negative except the above Past Medical History Past Medical History: Atrial Fibrillation, Cancer, COPD, Hyperlipidemia, Hypertension, Osteoarthritis (OA), Prostate Disorder, Renal Disease, Skin Disorder Additional Past Medical History / Comment(s): 1960s had bleeding stomach ulcer with surgery, acute renal failure 11/2017, elevated PSA, gout bilateral ankles and toes both feet, chronic back pain-does not tolerate supine position, psoriasis, skin cancer with removals. History of Any Multi-Drug Resistant Organisms: None Reported Past Surgical History: Appendectomy, Back Surgery, Joint Replacement Additional Past Surgical History / Comment(s): 04/30/18 total L hip arthroplasty , gastric surgery for bleeding ulcer, 4 back surgeries, skin cancer removals Past Anesthesia/Blood Transfusion Reactions: No Reported Reaction Smoking Status: Current every day smoker - Past Family History Mother Family Medical History: Cancer, Skin Disorder Additional Family Medical History / Comment(s): Psoriasis, unknown to pt type of cancer. Father Family Medical History: No Reported History Additional Family Medical History / Comment(s): Father was healthy Brother(s) Family Medical History: Cancer Additional Family Medical History / Comment(s): COLON CANCER Medications and Allergies Home Medications Medication Instructions Recorded Confirmed Type Allopurinol [Zyloprim] 300 mg PO DAILY 01/03/18 06/03/18 History Atenolol 25 mg PO BID 01/03/18 06/03/18 History Ranitidine HCl 150 mg PO BID 01/03/18 06/03/18 History Tamsulosin HCl [Flomax] 0.4 mg PO DAILY 01/03/18 06/03/18 History amLODIPine [Norvasc] 5 mg PO DAILY #30 tab 01/05/18 06/03/18 Rx Cholecalciferol (Vitamin D3) 2,000 unit PO DAILY 04/18/18 06/03/18 History [Vitamin D3] Rivaroxaban [Xarelto] 15 mg PO DAILY 04/18/18 06/03/18 History HYDROcodone/APAP 5-325MG [[place] 1 - 2 tab PO Q4-6H PRN #45 tab 05/01/18 Rx 5-325] Sennosides [Senokot] 1 tab PO BID #60 tablet 05/01/18 06/03/18 Rx Cyclobenzaprine [Flexeril] 10 mg PO HS 06/03/18 06/03/18 History Allergies Allergy/AdvReac Type Severity Reaction Status Date / Time No Known Allergies Allergy Verified 06/03/18 08:06 Physical Exam Vitals: Vital Signs Temp Pulse Resp BP Pulse Ox 06/03/18 09:53 80 18 146/95 93 L 06/03/18 09:00 98 23 146/100 90 L 06/03/18 08:30 80 16 120/87 94 L 06/03/18 08:00 93 20 140/104 93 L 06/03/18 07:43 92 L 06/03/18 07:34 97.6 F 103 H 18 170/86 99 Intake and Output 06/02/18 06/03/18 06/03/18 22:59 06:59 14:59 Other: Weight 90.718 kg PHYSICAL EXAMINATION: Patient is lying in the bed comfortably, no acute distress, awake alert and oriented.. HEENT: Normocephalic. Neck is supple. Pupils reactive. Nostrils clear. Oral cavity is moist. Ears reveal no drainage. Neck reveals no JVD, carotid bruits, or thyromegaly. CHEST EXAMINATION: Trachea is central. Symmetrical expansion. Lung marks clear to auscultation and percussion. CARDIAC: Normal S1, S2 with no gallops. No murmurs . Irregularly irregular pulse ABDOMEN: Soft. Bowel sounds normal. No organomegaly. No abdominal bruits. Extremities: reveal no edema. No clubbing or cyanosis Neurologically awake, alert, oriented x3 with well-coordinated movements. No focal deficits noted Skin: No rash or skin lesions. Psychiatric: Coperative. Nonsuicidal Musculoskeletal: No joint swelling or deformity. Normal range of motion. Results CBC & Chem 7: 06/03/18 13:53 06/03/18 07:58 Labs: Abnormal Lab Results - Last 24 Hours (Table) 06/03/18 Range/Units 07:58 Chloride 111 H (98-107) mmol/L BUN 21 H (9-20) mg/dL Glucose 116 H (74-99) mg/dL AST 15 L (17-59) U/L ALT 15 L (21-72) U/L Thrombosis Risk Factor Assmnt - Choose All That Apply Any of the Below Risk Factors Present?: Yes Each Factor Represents 1 point: Abnormal pulmonary function (COPD), Obesity ( BMI >25) Other Risk Factors: Yes Each Risk Factor Represents 3 Points: Age 75 years or older Other congenital or acquired thrombophilia - If yes, enter type in comment: No Thrombosis Risk Factor Assessment Total Risk Factor Score: 5 Thrombosis Risk Factor Assessment Level: High Risk
[2018-06-03 17:33] LABS: HCT 39.9 % (39.0-53.0); HGB 12.7 gm/dL (13.0-17.5); Hypochromasia Moderate; MCHC 31.8 g/dL (31.0-37.0); MCV 94.3 fL (80.0-100.0); Mean Platelet Volume 6.8; Platelet Count 168 k/uL (150-450); Poikilocytosis Slight; RBC 4.24 m/uL (4.30-5.90); RDW 14.8 % (11.5-15.5); WBC 6.8 k/uL (3.8-10.6)
[2018-06-03] MEDS: PANTOPRAZOLE 40 MG/10 ML VIAL IVP SCH (21:13)
[2018-06-03] MEDS: ATENOLOL 25 MG TAB PO SCH (21:13)
[2018-06-03] MEDS: CYCLOBENZAPRINE 10 MG TAB PO SCH (21:13)
[2018-06-04 00:18] LABS: HCT 38.8 % (39.0-53.0); HGB 12.3 gm/dL (13.0-17.5); Hypochromasia Moderate; MCH 29.7 pg (25.0-35.0); MCHC 31.8 g/dL (31.0-37.0); MCV 93.4 fL (80.0-100.0); Mean Platelet Volume 6.6; Platelet Count 154 k/uL (150-450); Poikilocytosis Slight; RBC 4.16 m/uL (4.30-5.90); RDW 14.9 % (11.5-15.5)
--- NOTE | 2018-06-04 08:57 | P.PN ---
Subjective Progress Note Date: 06/04/18 Principal diagnosis: hematochezia GI bleed 77-year-old maleadmitted with painless hematochezia. 2 smaller burgundy colored bowel movements yesterday. hemoglobin 12.3. Denies abdominal pain. Afebrile. No emesis. Objective - Vital Signs Vital signs: Vital Signs Temp 98 F 06/04/18 05:00 Pulse 80 06/04/18 05:00 Resp 16 06/04/18 05:00 BP 120/64 06/04/18 05:00 Pulse Ox 93 L 06/04/18 05:00 Intake & Output 06/03/18 06/04/18 06/04/18 18:59 06:59 18:59 Intake Total 1180 Balance 1180 Weight 90.718 kg Intake: Intake, IV Titration 800 Amount Sodium Chloride 0.9% 1, 800 000 ml @ 100 mls/hr IV . Q10H ONE Rx#:[id number] Oral 380 Other: Voiding Method Toilet # Voids 1 # Bowel Movements 1 - Exam General appearance: The patient is alert, oriented, in no acute distress. HET: Head is normocephalic and atraumatic. Pupils are equal and reactive. Oropharynx is clear without lesions. Neck: Supple without lymphadenopathy. Trachea midline. Heart: S1 S2. Lungs: No crackles or wheezes are heard. Abdomen: Soft, nontender, nondistended with bowel sounds. No peritoneal signs. No palpable organomegaly or masses. Extremities: Normal skin color and turgor. No cyanosis, rash, ulceration, clubbing, or edema. Radial and pedal pulses are 2/4 bilaterally. Neurological: No focal deficits. Strength and sensation are grossly intact. - Labs CBC & Chem 7: 06/04/18 00:10 06/03/18 07:58 Labs: Abnormal Lab Results - Last 24 Hours (Table) 06/03/18 06/04/18 Range/Units 16:57 00:10 RBC 4.24 L 4.16 L (4.30-5.90) m/uL Hgb 12.7 L 12.3 L (13.0-17.5) gm/dL Hct 38.8 L (39.0-53.0) % Assessment and Plan (1) Hematochezia Narrative/Plan: 77-year-old gentleman admitted with acute lower GI bleed painless rectal bleeding recent total hip surgery 1 month ago contained on anticoagulation possible colonic diverticular bleeding. Upper GI source cannot be entirely excluded but felt to be less likely. Current Visit: Yes Status: Acute Code(s): K92.1 - MELENA SNOMED Code(s): 700938548 (2) GI bleed Current Visit: Yes Status: Acute Code(s): K92.2 - GASTROINTESTINAL HEMORRHAGE, UNSPECIFIED SNOMED Code(s): 00576172 (3) Status post total hip replacement, left Current Visit: No Status: Acute Code(s): Z96.642 - PRESENCE OF LEFT ARTIFICIAL HIP JOINT SNOMED Code(s): 369005920672 Plan: 1. EGD colonoscopy tomorrow. CBC monitoring. Continue GI prophylaxis. Nothing by mouth after midnight. Clear liquids today. Assessment and plan a care discussed with Dr. Díaz
[2018-06-04] MEDS: ALLOPURINOL 300 MG TAB PO SCH (09:20)
[2018-06-04] MEDS: amLODIPine 5 MG TAB PO SCH (09:21)
[2018-06-04] MEDS: ATENOLOL 25 MG TAB PO SCH ×2 (09:22→21:52)
[2018-06-04] MEDS: CHOLECALCIFEROL 1,000 UNIT TAB PO SCH (09:22)
[2018-06-04] MEDS: PANTOPRAZOLE 40 MG/10 ML VIAL IVP SCH ×2 (09:23→21:52)
[2018-06-04] MEDS: TAMSULOSIN 0.4 MG CAP.ER.24H PO SCH (09:24)
[2018-06-04 09:34] LABS: Basophils % (A) 0 %; Eosinophils # (A) 0.3 k/uL (0-0.7); Eosinophils % (A) 4 %; HCT 41.2 % (39.0-53.0); HGB 13.3 gm/dL (13.0-17.5); Hypochromasia Moderate; Lymphocytes # (A) 1.4 k/uL (1.0-4.8); Lymphocytes % (A) 19 %; MCH 30.3 pg (25.0-35.0); MCHC 32.3 g/dL (31.0-37.0); MCV 93.8 fL (80.0-100.0); Mean Platelet Volume 6.9; Monocytes # (A) 0.5 k/uL (0-1.0); Monocytes % (A) 7 %; Neutrophils # (A) 4.9 k/uL (1.3-7.7); Neutrophils % (A) 68 %; Platelet Count 154 k/uL (150-450); Poikilocytosis Slight; WBC 7.2 k/uL (3.8-10.6)
[2018-06-04 09:45] LABS: Albumin 3.8 g/dL (3.5-5.0); Calcium 9.6 mg/dL (8.4-10.2); Potassium 4.3 mmol/L (3.5-5.1); Total Bilirubin 0.6 mg/dL (0.2-1.3); Total Protein 6.7 g/dL (6.3-8.2)
[2018-06-04] MEDS ORDERED: BISACODYL 5 MG TABLET.DR PO ONE (13:00)
[2018-06-04] MEDS ORDERED: PEG 3350-NA SULF,BICARB,CL/KCL 4,000 ML BOTTLE PO ONE (15:00)
[2018-06-04] MEDS: CYCLOBENZAPRINE 10 MG TAB PO SCH (21:52)
[2018-06-05] MEDS: ATENOLOL 25 MG TAB PO SCH ×2 (08:34→22:57)
[2018-06-05] MEDS: amLODIPine 5 MG TAB PO SCH (08:34)
[2018-06-05] MEDS: PANTOPRAZOLE 40 MG/10 ML VIAL IVP SCH ×2 (08:34→22:57)
[2018-06-05] MEDS: TAMSULOSIN 0.4 MG CAP.ER.24H PO SCH (08:34)
[2018-06-05] MEDS: CHOLECALCIFEROL 1,000 UNIT TAB PO SCH (08:34)
[2018-06-05] MEDS: ALLOPURINOL 300 MG TAB PO SCH (08:34)
[2018-06-05] MEDS ORDERED: PROPOFOL 10 MG/ML 20 ML VIAL IV ONE (14:26)
[2018-06-05] MEDS ORDERED: LIDOCAINE 1% INJ 10MG/ML (20 ML MDV) ONE (14:26)
[2018-06-05] MEDS ORDERED: IV FLUID CONTINUATION 1,000 ML IV ONE ×2 (14:32)
--- NOTE | 2018-06-05 15:30 | P.PN ---
Subjective Progress Note Date: 06/04/18 Progress note being dictated for Dr. Abrams. Interval history:Patient is a 77-year-old male with a known history of atrial fibrillation on anticoagulation with xarelto, left hip arthroplasty about 1 month ago, COPD, hypertension, osteoarthritis and other multiple medical problems came to ER with complaints of rectal bleeding. Patient says that he noticed blueberry shaped bleeding spots in the stool last night and again today. Patient does have maroon-colored spots in the stool. Denied any abdominal pain. Patient did have 2-3 episodes of diarrhea. Denied fever or chills. Denied any hematemesis. FOBT is positive Hemoglobin 13.2 on admission. Patient had a history of stomach ulcer with surgery in 1960s. No recent GI bleed or abdominal issues. Patient has been taking anticoagulations just over a month for atrial fibrillation, diagnosed before his hip surgery. Currently denied any complains of headache or dizziness or lightheadedness. No active bleeding at this time. EKG showed atrial fibrillation with rapid regular rate of 102 06/04/2018 reporting a couple of small burgundy colored, movements yesterday, hemoglobin 12.3. Tolerating clear liquid diet. Denies nausea, vomiting, abdominal pain. evaluated by GI, scheduled for both EGD and colonoscopy tomorrow. Currently drinking prep. Afebrile. Denies chest pain, palpitations or increased shortness of breath. Objective - Vital Signs Vital signs: Vital Signs Temp 98 F 06/04/18 05:00 Pulse 71 06/04/18 08:45 Resp 18 06/04/18 08:45 BP 116/66 06/04/18 08:45 Pulse Ox 93 L 06/04/18 05:00 Intake & Output 06/03/18 06/04/18 06/04/18 18:59 06:59 18:59 Intake Total 1180 250 Balance 1180 250 Weight 90.718 kg Intake: Intake, IV Titration 800 Amount Sodium Chloride 0.9% 1, 800 000 ml @ 100 mls/hr IV . Q10H ONE Rx#:[id number] Oral 380 250 Other: Voiding Method Toilet Toilet # Voids 1 1 # Bowel Movements 1 - Exam Patient is lying in the bed comfortably, no acute distress, awake alert and oriented.. HEENT: Normocephalic. Neck is supple. Pupils reactive. Nostrils clear. Oral cavity is moist. Ears reveal no drainage. Neck reveals no JVD, carotid bruits, or thyromegaly. CHEST EXAMINATION: Trachea is central. Symmetrical expansion. Lung marks clear to auscultation and percussion. CARDIAC: Normal S1, S2 with no gallops. No murmurs . Irregularly irregular pulse ABDOMEN: Soft. Nontender, nondistended. Bowel sounds normal. No organomegaly. No abdominal bruits. Extremities: reveal no edema. No clubbing or cyanosis Neurologically awake, alert, oriented x3 with well-coordinated movements. No focal deficits noted Skin: No rash or skin lesions. Psychiatric: Coperative. Nonsuicidal Musculoskeletal: No joint swelling or deformity. Normal range of motion. - Labs CBC & Chem 7: 06/04/18 08:19 06/04/18 08:19 Labs: Abnormal Lab Results - Last 24 Hours (Table) 06/03/18 06/04/18 06/04/18 Range/Units 16:57 00:10 08:19 RBC 4.24 L 4.16 L (4.30-5.90) m/uL Hgb 12.7 L 12.3 L (13.0-17.5) gm/dL Hct 38.8 L (39.0-53.0) % Chloride 109 H (98-107) mmol/L ALT 18 L (21-72) U/L Assessment and Plan Assessment: Acute GI bleed/rectal bleed. Possible diverticular bleed. Atrial fibrillation with rapid ventricular rate, currently controlled. On anticoagulation at home. Recent hip surgery COPD Hypertension Hyperlipidemia Osteoarthritis BPH Remote History of stomach ulcer with surgery in 1960s Chronic back pain Skin cancer with removal Nicotine addiction and currently everyday smoker DVT prophylaxis with SCDs Plan: Continue on current medication regime ,monitoring and symptomatic treatment. Currently undergoing prep for both EGD and colonoscopy scheduled for tomorrow. Close monitoring of CBC, and further bleeding.NPO at midnight. Potential discharge tomorrow after endoscopies completed pending results. Smoking cessation readdressed. Further recommendations to follow. The impression and plan of care has been dictated as directed. : I performed a history and examination of this patient, discussed the same with the dictator. I agree with the dictator's note ,documented as a scribe. Any additional findings or plans will be noted.
--- NOTE | 2018-06-05 16:34 | P.PCN ---
Date of Procedure: 06/05/18 Description of Procedure: Brief history: Patient is a pleasant scheduled for an upper endoscopy as well as colonoscopy as a part of evaluation of rectal bleeding which brought the patient to the hospital. The patient is on Xarelto at home and this was held for 2 days prior to endoscopic evaluation. Procedure performed: Esophagogastroduodenoscopy with cold biopsy Colonoscopy with polypectomy and clip placement Estimated blood loss: Minimal. Preoperative diagnosis: Hematochezia, anemia of acute blood loss, GERD Anesthesia: MAC Procedure: After informed consent was obtained from the patient was brought into the endoscopy unit and IV sedation was administered by anesthesia under continuous monitoring. Initially upper endoscopy was done. The Olympus GF 190 video endoscope was inserted into the mouth and esophagus intubated without any difficulty and was gradually advanced into the stomach and duodenum and carefully examined. The bulb and second part of the duodenum appeared normal. The scope was then withdrawn into the stomach adequately insufflated with air and upon careful examination the antrum and body, cardia and fundus appeared normal with some mild scattered erythema in the antrum and body which was biopsied. The scope was then withdrawn into the esophagus. The GE junction was located at 45 cm to the incisors. It appeared regular with no erythema erosions or ulcerations. Rest of the esophagus appeared normal. Patient tolerated the procedure well. At this time the patient continued to remain sedation. Initial digital rectal examination was significant for external nonthrombosed hemorrhoids. Olympus CF 190 video colonoscope was then inserted into the rectum and gradually advanced to the cecum without any difficulty. Careful examination was performed as the scope was gradually being withdrawn. The prep was good. A 4 mm sessile polyp at the appendiceal opening was removed with cold snare. An 8 mm sessile polyp in the cecum was removed with cold snare. A distal descending colon polyp measuring 5 mm was removed with cold snare. A mid descending polyp measuring 7 mm which was sessile was removed with cold snare. A 4 mm hepatic flexure sessile polyp was removed with cold snare to transverse colon sessile polyps measuring 2-3 mm were removed with cold forceps. A 6 mm sessile proximal sigmoid polyp was removed via multiple bites with cold forceps. 2 sessile sigmoid polyps measuring 2-3 mm were removed with cold forceps. A diminutive 3 mm rectal polyp was removed with cold forceps. A large 2 cm pedunculated rectal polyp was removed with hot snare. 3 clips were placed at the site of the hot snare polypectomy with hemostasis achieved. Mild scattered diverticulosis was noted throughout the colon. Patient tolerated the procedure well. Impression: 1. Gastritis, biopsied. 2. Multiple polyps removed throughout the colon with cold forceps, cold snare and hot snare. 3 clips placed for hemostasis in the rectum where a large pedunculated polyp was removed with hot snare. 3. Diverticulosis. Recommendations: Findings of this examination were discussed with the patient as well as his . Okay for liquid diet today. We'll continue to hold Xarelto and monitor hemoglobin and hematocrit, for a minimum of 48 additional hours in the size of polypectomy. Await pathology. Patient will need follow-up for discussion on further treatment. Repeat colonoscopy will depend on findings of pathology.
--- NOTE | 2018-06-05 19:42 | P.PN ---
Subjective Progress Note Date: 06/05/18 Progress note being dictated for Dr. Abrams. Interval history:Patient is a 77-year-old male with a known history of atrial fibrillation on anticoagulation with xarelto, left hip arthroplasty about 1 month ago, COPD, hypertension, osteoarthritis and other multiple medical problems came to ER with complaints of rectal bleeding. Patient says that he noticed blueberry shaped bleeding spots in the stool last night and again today. Patient does have maroon-colored spots in the stool. Denied any abdominal pain. Patient did have 2-3 episodes of diarrhea. Denied fever or chills. Denied any hematemesis. FOBT is positive Hemoglobin 13.2 on admission. Patient had a history of stomach ulcer with surgery in 1960s. No recent GI bleed or abdominal issues. Patient has been taking anticoagulations just over a month for atrial fibrillation, diagnosed before his hip surgery. Currently denied any complains of headache or dizziness or lightheadedness. No active bleeding at this time. EKG showed atrial fibrillation with rapid regular rate of 102 06/04/2018 reporting a couple of small burgundy colored, movements yesterday, hemoglobin 12.3. Tolerating clear liquid diet. Denies nausea, vomiting, abdominal pain. evaluated by GI, scheduled for both EGD and colonoscopy tomorrow. Currently drinking prep. Afebrile. Denies chest pain, palpitations or increased shortness of breath. 06/05/18 NPO,Awaiting EGD& Colonscopy today.Completed Prep, staff reports clear. No further bleeding reported. Denies chest pain, palpitations, shortness of breath. Objective - Vital Signs Vital signs: Vital Signs Temp 96.7 F L 06/05/18 17:42 Pulse 95 06/05/18 17:42 Resp 20 06/05/18 17:42 BP 138/78 06/05/18 17:42 Pulse Ox 96 06/05/18 17:42 Intake & Output 06/05/18 06/05/18 06/06/18 06:59 18:59 06:59 Intake Total 1000 840 Balance 1000 840 Intake: IV 600 Oral 1000 240 Other: Voiding Method Toilet Toilet # Voids 4 3 # Bowel Movements 5 - Exam Patient is lying in the bed comfortably, no acute distress, awake alert and oriented.. HEENT: Normocephalic. Neck is supple. Pupils reactive. Nostrils clear. Oral cavity is moist. Neck reveals no JVD, carotid bruits, or thyromegaly. CHEST EXAMINATION: Trachea is central. Symmetrical expansion. Lung marks clear to auscultation and percussion. CARDIAC: Normal S1, S2 with no gallops. No murmurs . Irregularly irregular pulse ABDOMEN: Soft. Nontender, nondistended. Bowel sounds normal. No organomegaly. No abdominal bruits. Extremities: reveal no edema. No clubbing or cyanosis Neurologically awake, alert, oriented x3 with well-coordinated movements. No focal deficits noted Skin: No rash or skin lesions. Psychiatric: Coperative. Nonsuicidal Musculoskeletal: No joint swelling or deformity. Normal range of motion. - Labs CBC & Chem 7: 06/04/18 08:19 06/04/18 08:19 Assessment and Plan Assessment: Acute GI bleed/rectal bleed. Possible diverticular bleed. Atrial fibrillation with rapid ventricular rate, currently controlled. On anticoagulation at home. Recent hip surgery COPD Hypertension Hyperlipidemia Osteoarthritis BPH Remote History of stomach ulcer with surgery in 1960s Chronic back pain Skin cancer with removal Nicotine addiction and currently everyday smoker DVT prophylaxis with SCDs Plan: Continue on current medication regime ,monitoring and symptomatic treatment. EGD and colonoscopy pending. NPO. Discharge planning in progress pending results. The impression and plan of care has been dictated as directed. : I performed a history and examination of this patient, discussed the same with the dictator. I agree with the dictator's note ,documented as a scribe. Any additional findings or plans will be noted.
[2018-06-05] MEDS: CYCLOBENZAPRINE 10 MG TAB PO SCH (22:57)
[2018-06-06 08:01] LABS: Basophils % (A) 0 %; Eosinophils # (A) 0.2 k/uL (0-0.7); Eosinophils % (A) 3 %; HGB 12.6 gm/dL (13.0-17.5); Hypochromasia Moderate; Lymphocytes % (A) 14 %; MCH 29.9 pg (25.0-35.0); MCHC 32.2 g/dL (31.0-37.0); Monocytes # (A) 0.5 k/uL (0-1.0); Monocytes % (A) 7 %; Neutrophils # (A) 5.5 k/uL (1.3-7.7); Neutrophils % (A) 75 %; Platelet Count 141 k/uL (150-450); Poikilocytosis Slight; RDW 14.8 % (11.5-15.5); WBC 7.3 k/uL (3.8-10.6)
[2018-06-06 08:22] LABS: Calcium 9.1 mg/dL (8.4-10.2); Potassium 3.8 mmol/L (3.5-5.1)
[2018-06-06] MEDS: ATENOLOL 25 MG TAB PO SCH ×2 (10:24→21:06)
[2018-06-06] MEDS: CHOLECALCIFEROL 1,000 UNIT TAB PO SCH (10:24)
[2018-06-06] MEDS: amLODIPine 5 MG TAB PO SCH (10:24)
[2018-06-06] MEDS: TAMSULOSIN 0.4 MG CAP.ER.24H PO SCH (10:25)
[2018-06-06] MEDS: ALLOPURINOL 300 MG TAB PO SCH (10:26)
[2018-06-06] MEDS: PANTOPRAZOLE 40 MG/10 ML VIAL IVP SCH ×2 (10:38→21:06)
[2018-06-06] MEDS: CYCLOBENZAPRINE 10 MG TAB PO SCH (21:05)
[2018-06-07 07:48] LABS: Basophils % (A) 0 %; Eosinophils # (A) 0.2 k/uL (0-0.7); Eosinophils % (A) 4 %; HCT 39.1 % (39.0-53.0); HGB 12.2 gm/dL (13.0-17.5); Hypochromasia Moderate; Lymphocytes # (A) 0.9 k/uL (1.0-4.8); Lymphocytes % (A) 14 %; MCH 29.4 pg (25.0-35.0); MCHC 31.2 g/dL (31.0-37.0); MCV 94.4 fL (80.0-100.0); Mean Platelet Volume 6.9; Monocytes # (A) 0.5 k/uL (0-1.0); Monocytes % (A) 7 %; Neutrophils # (A) 4.8 k/uL (1.3-7.7); Neutrophils % (A) 74 %; Platelet Count 121 k/uL (150-450); Poikilocytosis Slight; RBC 4.14 m/uL (4.30-5.90); RDW 14.8 % (11.5-15.5); WBC 6.5 k/uL (3.8-10.6)
[2018-06-07] MEDS: CHOLECALCIFEROL 1,000 UNIT TAB PO SCH (07:55)
[2018-06-07] MEDS: ALLOPURINOL 300 MG TAB PO SCH (07:55)
[2018-06-07] MEDS: amLODIPine 5 MG TAB PO SCH (07:55)
[2018-06-07] MEDS: ATENOLOL 25 MG TAB PO SCH (07:56)
[2018-06-07] MEDS: TAMSULOSIN 0.4 MG CAP.ER.24H PO SCH (07:57)
[2018-06-07] MEDS: PANTOPRAZOLE 40 MG/10 ML VIAL IVP SCH (07:58)
[2018-06-07 12:07] VITALS: BP 110/70; PULSE 86; RESP 16; TEMP 97.7
--- NOTE | 2018-06-07 20:11 | P.PN ---
Subjective Progress Note Date: 06/06/18 Progress note being dictated for Dr. Abrams. Interval history:Patient is a 77-year-old male with a known history of atrial fibrillation on anticoagulation with xarelto, left hip arthroplasty about 1 month ago, COPD, hypertension, osteoarthritis and other multiple medical problems came to ER with complaints of rectal bleeding. Patient says that he noticed blueberry shaped bleeding spots in the stool last night and again today. Patient does have maroon-colored spots in the stool. Denied any abdominal pain. Patient did have 2-3 episodes of diarrhea. Denied fever or chills. Denied any hematemesis. FOBT is positive Hemoglobin 13.2 on admission. Patient had a history of stomach ulcer with surgery in 1960s. No recent GI bleed or abdominal issues. Patient has been taking anticoagulations just over a month for atrial fibrillation, diagnosed before his hip surgery. Currently denied any complains of headache or dizziness or lightheadedness. No active bleeding at this time. EKG showed atrial fibrillation with rapid regular rate of 102 06/04/2018 reporting a couple of small burgundy colored, movements yesterday, hemoglobin 12.3. Tolerating clear liquid diet. Denies nausea, vomiting, abdominal pain. evaluated by GI, scheduled for both EGD and colonoscopy tomorrow. Currently drinking prep. Afebrile. Denies chest pain, palpitations or increased shortness of breath. 06/05/18 NPO,Awaiting EGD& Colonscopy today.Completed Prep, staff reports clear. No further bleeding reported. Denies chest pain, palpitations, shortness of breath. 06/06/18 underwent EGD with biopsy and colonoscopy with polypectomy and clip placement yesterday, tolerated procedures well. Multiple polyps removed within the colon with 3 clips placed. Gastritis and diverticulosis reported.Tolerating soft diet, with no nausea vomiting or diarrhea. No further bleeding, no hematochezia. Hemoglobin stable at 12.6. Denies lightheadedness dizziness or focal deficits. Denies chest pain, palpitations or increasing shortness of breath. Objective - Vital Signs Vital signs: Vital Signs Temp 97.7 F 06/07/18 12:07 Pulse 86 06/07/18 12:07 Resp 16 06/07/18 12:07 BP 110/70 06/07/18 12:07 Pulse Ox 98 06/07/18 12:07 Intake & Output 06/07/18 06/07/18 06/08/18 06:59 18:59 06:59 Intake Total 720 Balance 720 Weight 90.718 kg 90.718 kg Intake: Oral 720 Other: Voiding Method Toilet Toilet # Voids 1 4 - Exam Patient is lying in the bed comfortably, no acute distress, awake alert and oriented.. HEENT: Normocephalic. Neck is supple. Pupils reactive. Nostrils clear. Oral cavity is moist. Neck reveals no JVD, carotid bruits, or thyromegaly. CHEST EXAMINATION: Trachea is central. Symmetrical expansion. Lung marks clear to auscultation and percussion. CARDIAC: Normal S1, S2 with no gallops. No murmurs . Irregularly irregular pulse ABDOMEN: Soft. Nontender, nondistended. Bowel sounds normal. No organomegaly. No abdominal bruits. Extremities: reveal no edema. No clubbing or cyanosis Neurologically awake, alert, oriented x3 with well-coordinated movements. No focal deficits noted Skin: No rash or skin lesions. Psychiatric: Coperative. Nonsuicidal Musculoskeletal: No joint swelling or deformity. Normal range of motion. - Labs CBC & Chem 7: 06/07/18 07:24 06/06/18 07:02 Labs: Abnormal Lab Results - Last 24 Hours (Table) 06/07/18 Range/Units 07:24 RBC 4.14 L (4.30-5.90) m/uL Hgb 12.2 L (13.0-17.5) gm/dL Plt Count 121 L (150-450) k/uL Lymphocytes # 0.9 L (1.0-4.8) k/uL Assessment and Plan Assessment: Acute GI bleed/rectal bleed. Status post EGD, colonoscopy reporting gastritis, diverticulosis. Atrial fibrillation with rapid ventricular rate, currently controlled. Xarelto on hold Recent hip surgery COPD Hypertension Hyperlipidemia Osteoarthritis BPH Remote History of stomach ulcer with surgery in 1960s Chronic back pain Skin cancer with removal Nicotine addiction and currently everyday smoker DVT prophylaxis with SCDs Plan: Continue on current medication regime ,monitoring and symptomatic treatment. Continue monitoring of hematocrit, hemoglobin, hold Xarelto as per GI. Discharge planning in progress for tomorrow. The impression and plan of care has been dictated as directed. : I performed a history and examination of this patient, discussed the same with the dictator. I agree with the dictator's note ,documented as a scribe. Any additional findings or plans will be noted.
--- NOTE | 2018-06-07 20:17 | P.DS ---
Providers Date of admission: 06/03/18 08:51 Expected date of discharge: 06/07/18 Attending physician: Abisai Michael Consults: 06/03/18 08:51 Consult Physician Urgent Consulting Provider: Mireya Wright Consult Reason/Comments: gi hemorrhage Do you want consulting provider notified?: Yes Primary care physician: [facility] Hospital Course: Final Diagnoses: Acute GI bleed/rectal bleed. Status post EGD, colonoscopy with polypectomy, reporting gastritis, diverticulosis. Atrial fibrillation with rapid ventricular rate, currently controlled. Xarelto on hold until Sunday. Recent hip surgery COPD Hypertension Hyperlipidemia Osteoarthritis BPH Remote History of stomach ulcer with surgery in 1960s Chronic back pain Skin cancer with removal Nicotine addiction and currently everyday smoker Hospital course:Patient is a 77-year-old male with a known history of atrial fibrillation on anticoagulation with xarelto, left hip arthroplasty about 1 month ago, COPD, hypertension, osteoarthritis and other multiple medical problems came to ER with complaints of rectal bleeding. Patient says that he noticed blueberry shaped bleeding spots in the stool last night and again today. Patient does have maroon-colored spots in the stool. Denied any abdominal pain. Patient did have 2-3 episodes of diarrhea. Denied fever or chills. Denied any hematemesis. FOBT is positive Hemoglobin 13.2 on admission. Patient had a history of stomach ulcer with surgery in . No recent GI bleed or abdominal issues. Patient has been taking anticoagulations just over a month for atrial fibrillation, diagnosed before his hip surgery. Currently denied any complains of headache or dizziness or lightheadedness. No active bleeding at this time. EKG showed atrial fibrillation with rapid regular rate of 102 Evaluated by GI. underwent EGD with biopsy and colonoscopy with polypectomy and clip placement. Multiple polyps removed within the colon with 3 clips placed. Gastritis and diverticulosis reported. Hemoglobin stable at 12.6. Significant clinical improvement. Patient cleared by GI for discharge. Patient is being discharged home in a stable condition with guarded prognosis. The impression and plan of care has been dictated as directed. : I performed a history and examination of this patient, discussed the same with the dictator. I agree with the dictator's note ,documented as a scribe. Any additional findings or plans will be noted. Time taken: 35 minutes Patient Condition at Discharge: Stable Plan - Discharge Summary Discharge Rx Participant: No New Discharge Prescriptions: New Pantoprazole Sodium [Protonix] 40 mg PO BID #60 tablet. Continue Tamsulosin HCl [Flomax] 0.4 mg PO DAILY Allopurinol [Zyloprim] 300 mg PO DAILY Atenolol 25 mg PO BID amLODIPine [Norvasc] 5 mg PO DAILY #30 tab Cholecalciferol (Vitamin D3) [Vitamin D3] 2,000 unit PO DAILY Sennosides [Senokot] 1 tab PO BID #60 tablet HYDROcodone/APAP 5-325MG [[place] 5-325] 1 - 2 tab PO Q4-6H PRN #45 tab PRN Reason: Pain Cyclobenzaprine [Flexeril] 10 mg PO HS Rivaroxaban [Xarelto] 15 mg PO DAILY #0 Discontinued Ranitidine HCl 150 mg PO BID Discharge Medication List Allopurinol [Zyloprim] 300 mg PO DAILY 01/03/18 [History] Atenolol 25 mg PO BID 01/03/18 [History] Tamsulosin HCl [Flomax] 0.4 mg PO DAILY 01/03/18 [History] amLODIPine [Norvasc] 5 mg PO DAILY #30 tab 01/05/18 [Rx] Cholecalciferol (Vitamin D3) [Vitamin D3] 2,000 unit PO DAILY 04/18/18 [History] HYDROcodone/APAP 5-325MG [[place] 5-325] 1 - 2 tab PO Q4-6H PRN #45 tab 05/01/18 [ Rx] Sennosides [Senokot] 1 tab PO BID #60 tablet 05/01/18 [Rx] Cyclobenzaprine [Flexeril] 10 mg PO HS 06/03/18 [History] Pantoprazole Sodium [Protonix] 40 mg PO BID #60 tablet. 06/07/18 [Rx] Rivaroxaban [Xarelto] 15 mg PO DAILY #0 06/07/18 [Rx] Follow up Appointment(s)/Referral(s): Fermín Díaz MD [STAFF PHYSICIAN] - 06/25/18 1:30 pm [facility] [Primary Care Provider] - 06/10/18 2:30 pm (Appointment will be with TEMO Loaiza) Ambulatory/Diagnostic Orders: Complete Blood Count w/diff [LAB.AMB] Time Frame: 3 Days, Location: None Selected Activity/Diet/Wound Care/Special Instructions: Continue to hold Xarelto until 06/10/2018. May restart Xarelto on Sunday, 06/10. Discharge Disposition: HOME SELF-CARE
== END 2018-06-07 15:01 | disposition home or self-care (01) ==
LOC: EC 07:32 → 3NMEDONC 08:51
PROVIDERS: ADMIT Internal Medicine; ATTEND Internal Medicine
DX: K57.51 Diverticulosis of both small and large intestine without perforation or abscess with bleeding (principal); K29.51 Unspecified chronic gastritis with bleeding; D62 Acute posthemorrhagic anemia; D12.1 Benign neoplasm of appendix; D12.0 Benign neoplasm of cecum; D12.4 Benign neoplasm of descending colon; D12.3 Benign neoplasm of transverse colon; D12.5 Benign neoplasm of sigmoid colon; K62.1 Rectal polyp; K64.4 Residual hemorrhoidal skin tags; J44.9 Chronic obstructive pulmonary disease, unspecified; K21.9 Gastro-esophageal reflux disease without esophagitis; I48.91 Unspecified atrial fibrillation; I10 Essential (primary) hypertension; E78.5 Hyperlipidemia, unspecified; F17.200 Nicotine dependence, unspecified, uncomplicated; G89.29 Other chronic pain; M54.9 Dorsalgia, unspecified; L40.9 Psoriasis, unspecified; N40.0 Benign prostatic hyperplasia without lower urinary tract symptoms; M19.90 Unspecified osteoarthritis, unspecified site; E66.9 Obesity, unspecified; Z68.27 Body mass index [BMI] 27.0-27.9, adult; M10.9 Gout, unspecified; Z85.828 Personal history of other malignant neoplasm of skin; Z87.11 Personal history of peptic ulcer disease; Z90.89 Acquired absence of other organs; Z96.642 Presence of left artificial hip joint; Z79.01 Long term (current) use of anticoagulants; Z79.899 Other long term (current) drug therapy; Z80.0 Family history of malignant neoplasm of digestive organs; Z83.79 Family history of other diseases of the digestive system; Z80.9 Family history of malignant neoplasm, unspecified
CPT/HCPCS: 96376 ×3; 96361; 96374; 99285; 36415; 93005; 88305; 80053 ×2; 80048; 85025 ×4; 85027 ×2; 85610; 85730; 82272; 81003; 45382; 45380; 45385; 43239; G0378 ×5; J2001; J2704; C9113 ×5

== ENCOUNTER 2018-11-26 10:56 | Day surgery (SDC) | payer MEDICARE, BC ==
[~2018-11-26 10:56] MED LIST changes: -ACETAMINOPHEN TAB 500 MG TAB PO ONE; +ALPRAZolam 0.25 MG TAB PO PRN; +ALPRAZolam 0.5 MG TAB PO PRN; +ASPIRIN 325 MG TAB PO STA; +ATORVASTATIN 80 MG TAB PO STA; -DEXAMETHASONE SOD PHOSPHATE 10 MG/ML 1 ML VIAL IV ONE; -MELOXICAM 7.5 MG TAB PO ONE; -MIDAZOLAM 2 MG/2 ML VIAL IV PRN; +NITROGLYCERIN SL TABS 0.4 MG TAB SUBLINGUAL PRN; -ONDANSETRON 4 MG/2 ML VIAL IVP ONE; -ROPIVACAINE 246.25 MG, EPINEPHrine 0.5 MG, KETOROLAC 30 MG, cloNIDine HCL/PF 80 MCG, WA... MISCELLANE ONE; +SODIUM CHLORIDE 0.9% 1,000 ML in EMPTY BAG 1 BAG IV ONE; -TRANEXAMIC ACID 1,000 MG in SODIUM CHLORIDE 0.9% 50 ML IVPB ONE; -ceFAZolin IN SWFI 2 GM/20 ML SYRINGE IVP ONE; -fentaNYL (PF) 50 MCG/ML 2 ML AMP IV PRN
[2018-11-26 11:32] LABS: Anisocytosis Slight; Basophils % (A) 0 %; Eosinophils # (A) 0.2 k/uL (0-0.7); Eosinophils % (A) 3 %; HCT 43.6 % (39.0-53.0); Hypochromasia Slight; Lymphocytes # (A) 1.3 k/uL (1.0-4.8); Lymphocytes % (A) 18 %; MCH 27.3 pg (25.0-35.0); MCHC 32.2 g/dL (31.0-37.0); MCV 84.7 fL (80.0-100.0); Mean Platelet Volume 7.4; Monocytes # (A) 0.5 k/uL (0-1.0); Monocytes % (A) 6 %; Neutrophils # (A) 5.2 k/uL (1.3-7.7); Neutrophils % (A) 71 %; Platelet Count 135 k/uL (150-450); RBC 5.14 m/uL (4.30-5.90); RDW 16.4 % (11.5-15.5); WBC 7.4 k/uL (3.8-10.6)
[2018-11-26 11:51] LABS: Calcium 9.4 mg/dL (8.4-10.2); Potassium 4.5 mmol/L (3.5-5.1)
[2018-11-26] MEDS ORDERED: LIDOCAINE 1% INJ 10MG/ML (20 ML MDV) ONE (12:14)
[2018-11-26] MEDS ORDERED: VERAPAMIL 2.5 MG/ML 2 ML AMP ONE (12:14)
[2018-11-26] MEDS ORDERED: fentaNYL (PF) 50 MCG/ML 2 ML AMP ONE (12:14)
[2018-11-26] MEDS ORDERED: IV FLUID CONTINUATION 950 ML IV ONE (12:34)
[2018-11-26] MEDS ORDERED: fentaNYL (PF) 50 MCG/ML 2 ML AMP IV ONE (12:34)
[2018-11-26] MEDS ORDERED: MIDAZOLAM (PF) 2 MG/2 ML VIAL IV ONE (12:34)
[2018-11-26] MEDS ORDERED: LIDOCAINE 1% INJ 10MG/ML (20 ML MDV) SQ ONE (12:38)
[2018-11-26] MEDS: VERAPAMIL SYRINGE (5 MG/10 ML) INTRAARTER ONE ×2 (12:39→13:18)
[2018-11-26] MEDS ORDERED: BIVALIRUDIN 250 MG in SODIUM CHLORIDE 0.9% 36 ML IV ONE (12:52)
[2018-11-26] MEDS ORDERED: BIVALIRUDIN BOLUS 250 MG/50 ML IV ONE (12:52)
[2018-11-26] MEDS ORDERED: IOPAMIDOL-370 100ML BTL INJ ONE ×2 (12:58→13:17)
[2018-11-26] MEDS ORDERED: CLOPIDOGREL 75 MG TAB ONE ×2 (13:03)
[2018-11-26] MEDS ORDERED: CLOPIDOGREL 75 MG TAB PO ONE (13:06)
[2018-11-26] MEDS ORDERED: NITROGLYCERIN 1000MCG/10ML SYRINGE INTRACORON ONE (13:13)
[2018-11-26] MEDS ORDERED: niCARdipine Syringe (1,000 mcg/10 mL) INTRACORON ONE (13:16)
[2018-11-26] MEDS ORDERED: ACETAMINOPHEN TAB 500 MG TAB PO PRN (13:29)
[2018-11-26] MEDS ORDERED: ZOLPIDEM 5 MG TAB PO PRN (13:30)
[2018-11-26] MEDS ORDERED: SODIUM CHLORIDE 0.9% 1,000 ML IV SCH (13:30)
[2018-11-26] MEDS ORDERED: ATROPINE SULFATE 0.1 MG/ML 10ML SYRINGE IV PRN (13:30)
[2018-11-26] MEDS ORDERED: MAG HYDROX/AL HYDROX/SIMETH 30 ML CUP PO PRN (13:30)
[2018-11-26] MEDS ORDERED: NITROGLYCERIN SL TABS 0.4 MG TAB SUBLINGUAL PRN (13:30)
[2018-11-26] MEDS ORDERED: RX INFO: IV CONTRAST WAS GIVEN 1 EACH MISC MISCELLANE PRN (13:30)
[2018-11-26] MEDS ORDERED: hydrALAZINE HCL 20 MG/ML 1 ML VIAL IVP STA (14:13)
[2018-11-26] MEDS ORDERED: hydrALAZINE HCL 20 MG/ML 1 ML VIAL ONE (14:15)
[2018-11-26 15:20] VITALS: BMI 27.8
--- NOTE | 2018-11-26 15:37 | CC ---
CARDIAC CATHETERIZATION REPORT DATE OF SERVICE: 11/26/2018 PERFORMING PHYSICIAN: Sunil Oscar MD, Claim Approver. PROCEDURE: 1. Selective right and left coronary angiogram. 2. Left heart catheterization. 3. Successful stenting of the OM2 of left circumflex using 2.0 x 15 mm [place] drug- eluting stent with good angiographic results. INDICATION: This is a 78-year-old gentleman with history of hypertension and dyslipidemia who was experiencing shortness of breath with exertion and underwent myocardial perfusion imaging stress test and that revealed ischemia. Because of that, a heart catheterization was advised. APPROACH: Right radial artery. COMPLICATION: None. LEVEL OF SEDATION: Moderate with sedation length of 43 minutes. PROCEDURE DESCRIPTION: After obtaining an informed consent, the patient was brought to cardiac labor operator. The right radial artery was cannulated using micropuncture technique. The micropuncture wire passed easily, then I placed a 6-[place] sheath 11 cm in the right radial artery. After that, I did selective right and left coronary angiogram using JR4 and JL3.5 catheters. Left heart catheterization was performed using the JR4 catheter which slid into the LV, then I did pullback across aortic valve. I did after that intervene on the left circumflex, please see a separate paragraph for that. SELECTIVE CORONARY ANGIOGRAM: 1. The right coronary artery is a medium caliber vessel. It is a nondominant vessel and appeared to be angiographically normal. 2. The left main is angiographically normal. It bifurcates into left circumflex and left anterior descending artery. 3. The left circumflex is a large caliber vessel, it is a dominant vessel. The proximal circumflex appeared to be appeared to have mild disease only and gives rise into OM1, which appeared to be angiographically normal. The mid circumflex has mild disease only and gives rise into a second OM which has a lesion distally appeared to be in the range of 99%. The circumflex after that has intermediate lesion in the range of 50% to 60%.. Distally appeared to be angiographically normal. 4. The LAD, the proximal LAD appeared to have mild disease only. The mid LAD appeared to have also mild disease only and the LAD distally appeared to be angiographically normal. The LAD gives rise into multiple small diagonal branches. HEMODYNAMICS: The left ventricular end-diastolic pressure was 8 mmHg without significant gradient across the aortic valve. PCI OF LEFT CIRCUMFLEX: Anticoagulation was initiated using Angiomax. Subsequently, I did engage the left main using JL3.5 guide. A whisper wire was used to wire the left circumflex coronary artery. I did double wire the left circumflex using a run-through wire. After that, I did balloon angioplasty using 2.5 x 12 mm balloon before I deployed 2.0 x 15 mm [place] drug-eluting stent where the stent was positioned under under fluoroscopy guidance and deployed under the subsequently I deployed a 2.0 x 15 mm [place] drug-eluting stent where the stent was positioned under fluoroscopy guidance and deployed under 18 atmospheres for 20 seconds with the following angiogram showing good angiographic results and the procedure was completed without any complication. CONCLUSION: 1. 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 2. Successful stenting of OM2 of left circumflex using 2.0 x 15 mm [place] drug-eluting stent with good angiographic results and reduction of stenosis from 95% to 0%. POSTPROCEDURE MANAGEMENT: 1. Maximize medical treatment. 2. Dual anti-platelet therapy. 3. Follow up with the patient. MMAIDA / IJN: [id number] /
[2018-11-26] MEDS: ATENOLOL 25 MG TAB PO SCH (20:42)
[2018-11-26] MEDS ORDERED: ATORVASTATIN 80 MG TAB PO SCH (21:00)
[2018-11-26] MEDS ORDERED: CYCLOBENZAPRINE 10 MG TAB PO SCH (21:00)
[2018-11-26 21:01] VITALS: RESP 18
[2018-11-27 06:55] LABS: Anisocytosis Slight; Basophils % (A) 0 %; Eosinophils # (A) 0.3 k/uL (0-0.7); Eosinophils % (A) 3 %; HCT 44.8 % (39.0-53.0); HGB 14.1 gm/dL (13.0-17.5); Hypochromasia Slight; Lymphocytes # (A) 1.6 k/uL (1.0-4.8); Lymphocytes % (A) 20 %; MCH 26.8 pg (25.0-35.0); MCHC 31.4 g/dL (31.0-37.0); MCV 85.4 fL (80.0-100.0); Mean Platelet Volume 7.5; Monocytes # (A) 0.6 k/uL (0-1.0); Monocytes % (A) 7 %; Neutrophils # (A) 5.5 k/uL (1.3-7.7); Neutrophils % (A) 68 %; Platelet Count 143 k/uL (150-450); RBC 5.25 m/uL (4.30-5.90); RDW 16.2 % (11.5-15.5); WBC 8.1 k/uL (3.8-10.6)
[2018-11-27 07:10] LABS: Calcium 9.5 mg/dL (8.4-10.2); Potassium 4.4 mmol/L (3.5-5.1)
[2018-11-27 08:38] VITALS: BP 131/64; PULSE 66; TEMP 97.9
[2018-11-27] MEDS: ATENOLOL 25 MG TAB PO SCH (08:38)
[2018-11-27] MEDS ORDERED: CHOLECALCIFEROL 1,000 UNIT TAB PO SCH (09:00)
[2018-11-27] MEDS ORDERED: ALLOPURINOL 300 MG TAB PO SCH (09:00)
[2018-11-27] MEDS ORDERED: SENNOSIDES 8.6 MG TAB PO SCH (09:00)
[2018-11-27] MEDS ORDERED: amLODIPine 5 MG TAB PO SCH (09:00)
[2018-11-27] MEDS ORDERED: TAMSULOSIN 0.4 MG CAP.ER.24H PO SCH (09:00)
[2018-11-27] MEDS ORDERED: CLOPIDOGREL 75 MG TAB PO SCH (12:00)
--- NOTE | 2018-11-27 18:05 | DS ---
DISCHARGE SUMMARY ADMISSION DATE: November 26, 2018. DISCHARGE DATE: November 27, 2017 BRIEF HISTORY: This is a pleasant 78-year-old gentleman who underwent yesterday a heart catheterization and stenting of the left circumflex. On follow up with him today, he is doing good and he is asymptomatic. The right wrist is soft and nontender and without any bruises with good right radial pulse. The patient is going to be discharged home on dual anti-platelet therapy and I will follow up with the patient next week in the office. MMMARKIEL / IJN: [id number] /
== END 2018-11-27 09:15 | disposition home or self-care (01) ==
LOC: CATHCVL 10:56 → 3SCARD 13:18 → CATHCVL 11-27 09:15
PROVIDERS: ATTEND Internal Medicine Interventional Cardiology
DX: I25.110 Atherosclerotic heart disease of native coronary artery with unstable angina pectoris (principal); I48.0 Paroxysmal atrial fibrillation; I10 Essential (primary) hypertension; M10.9 Gout, unspecified; I34.0 Nonrheumatic mitral (valve) insufficiency; I27.20 Pulmonary hypertension, unspecified; F17.210 Nicotine dependence, cigarettes, uncomplicated; Z79.01 Long term (current) use of anticoagulants; Z79.899 Other long term (current) drug therapy; Z71.6 Tobacco abuse counseling
CPT/HCPCS: 93458; 80048 ×2; 85025 ×2; C9600; C1769 ×3; C1887; C1725; C1874; C1894; J0360; J2001; J3010; J0583; Q9967; J2250

== ENCOUNTER 2020-06-14 08:35 | Inpatient (IN) | payer MEDICARE, BC ==
[2020-06-14] MEDS ORDERED: MORPHINE SULFATE 4 MG/ML SYRINGE IV STA (08:59)
[2020-06-14] MEDS ORDERED: ONDANSETRON 4 MG/2 ML VIAL IVP STA (08:59)
[2020-06-14] MEDS ORDERED: SODIUM CHLORIDE 0.9% 500 ML 500 ML IV STA (08:59)
--- NOTE | 2020-06-14 09:09 | ED ---
Abdominal Pain HPI <Esteban Morales - Last Filed: 06/14/20 10:38> - General Source: patient Mode of arrival: wheelchair Limitations: no limitations <Maria Chance - Last Filed: 06/14/20 13:15> - General Chief Complaint: Abdominal Pain Stated Complaint: abd pain Time Seen by Provider: 06/14/20 08:52 - History of Present Illness Initial Comments: Patient is a 79-year-old male, history of A. fib, COPD, presenting to emergency Department with complaints of right-sided abdominal pain that started about midnight. He's also had some vomiting. He states the pain is very sharp and severe, mostly on his right side of his abdomen and lower with some radiation to the right side. He states he cannot get comfortable. He did have regular bowel movement yesterday. He does have a history of appendectomy, gastric surgery secondary to bleeding ulcer. He's had no fever, no chills. He denies any chest pain, admits to some very mild shortness of breath but feels like it's because he is in so much pain. He is no urinary complaints. He has no further complaints. Upon arrival to the ER, his blood pressures elevated at 186/100, rest of vitals normal. (Maria Chance) - Related Data Home Medications Medication Instructions Recorded Confirmed Tamsulosin HCl [Flomax] 0.4 mg PO DAILY 01/03/18 06/14/20 allopurinoL [Zyloprim] 300 mg PO DAILY 01/03/18 06/14/20 atenoloL [Atenolol] 25 mg PO BID 01/03/18 06/14/20 Previous Rx's Medication Instructions Recorded Aspirin 325 mg PO DAILY #90 tab 11/27/18 Allergies Allergy/AdvReac Type Severity Reaction Status Date / Time No Known Allergies Allergy Verified 06/14/20 10:45 Review of Systems ROS Other: All systems not noted in ROS Statement are negative. <Esteban Morales - Last Filed: 06/14/20 10:38> ROS Other: All systems not noted in ROS Statement are negative. <Maria Chance - Last Filed: 06/14/20 13:15> ROS Statement: Those systems with pertinent positive or pertinent negative responses have been documented in the HPI. Past Medical History Past Medical History: Atrial Fibrillation, Cancer, COPD, Hyperlipidemia, Hypertension, Osteoarthritis (OA), Prostate Disorder, Renal Disease, Skin Disorder, Sleep Apnea/CPAP/BIPAP Additional Past Medical History / Comment(s): 1960s had bleeding stomach ulcer with surgery, acute renal failure 11/2017, elevated PSA, gout bilateral ankles and toes both feet, chronic back pain, psoriasis, skin cancer with removals. No CPAP use. History of Any Multi-Drug Resistant Organisms: None Reported Past Surgical History: Appendectomy, Back Surgery, Joint Replacement Additional Past Surgical History / Comment(s): Total left hip arthroplasty, gastric surgery for bleeding ulcer, 4 back surgeries, skin cancer removals. Past Anesthesia/Blood Transfusion Reactions: No Reported Reaction Additional Past Anesthesia/Blood Transfusion Reaction / Comment(s): "Prefers not to have Ativan." Past Psychological History: No Psychological Hx Reported Smoking Status: Current every day smoker Past Alcohol Use History: None Reported Past Drug Use History: None Reported - Past Family History Mother Family Medical History: Cancer, Skin Disorder Additional Family Medical History / Comment(s): Psoriasis, unknown to pt type of cancer. Father Family Medical History: No Reported History Additional Family Medical History / Comment(s): Father was healthy. Brother(s) Family Medical History: Cancer Additional Family Medical History / Comment(s): COLON CANCER. <Maria Chance L - Last Filed: 06/14/20 13:15> General Exam Limitations: no limitations <Maria Chance - Last Filed: 06/14/20 13:15> - General Exam Comments Initial Comments: GENERAL: Patient is well-developed and well-nourished. Patient is nontoxic and in mild distress. HEAD: Atraumatic, normocephalic. EYES: Pupils equal round and reactive to light, extraocular movements intact, sclera anicteric, conjunctiva are normal. Eyelids were unremarkable. ENT: TMs normal, nares patent, oropharynx clear without exudates. Moist mucous membranes. NECK: Normal range of motion, supple without lymphadenopathy or JVD. LUNGS: Unlabored respirations. Breath sounds clear to auscultation bilaterally and equal. No wheezes rales or rhonchi. HEART: Regular rate and rhythm without murmurs, rubs or gallops. ABDOMEN: Tender to palpation of the entire right side of the abdomen, right flank, positive guarding, seems mildly distended. Soft, normoactive bowel sounds. No rebound. No masses appreciated. : Deferred MUSCULOSKELETAL: Normal extremities with adequate strength and normal range of motion, no pitting or edema. No clubbing or cyanosis. Neurovascular intact. NEUROLOGICAL: Patient is alert and oriented x 3. Motor and sensory are also intact. Cranial nerves II through XII grossly intact. Symmetrical smile. Normal speech, normal gait. PSYCH: Normal mood, normal affect. SKIN: Warm, Dry, normal turgor, no rashes or lesions noted. (Maria Chance) Course <Esteban Morales - Last Filed: 06/14/20 10:38> <Maria Chance - Last Filed: 06/14/20 13:15> Vital Signs 06/14/20 06/14/20 08:45 11:34 Temperature 97.3 F L Pulse Rate 75 108 H Respiratory 18 18 Rate Blood Pressure 186/100 126/96 O2 Sat by Pulse 95 96 Oximetry - Reevaluation(s) Reevaluation #1: 06/14/20 10:39 Patient reevaluated and reexamined by myself, Dr. Morales. Patient does appear uncomfortable at this time with minimal abdominal distention. CT report reviewed as well as images. Patient updated on results and patient is interested in having surgery. Case was discussed with Dr. Vargas, who will evaluate films and call back. I do agree with PA findings. This includes diagnostic interpretation and treatment plan. (Esteban Morales) Reevaluation #2: 06/14/20 11:20 refuse laborer called to get consent, they are taking him to the OR now. (Maria Chance) Medical Decision Making - Lab Data Result diagrams: 06/14/20 09:12 06/14/20 09:11 <Esteban Morales - Last Filed: 06/14/20 10:38> - Lab Data Result diagrams: 06/14/20 09:12 06/14/20 09:11 <Maria Chance - Last Filed: 06/14/20 13:15> - Medical Decision Making Patient is 79-year-old male here for lower right-sided abdominal pain that started about midnight. The pressure was elevated upon arrival, rest was normal. He did seem quite tender in the right side of the abdomen, mildly distended. Labs reveal white count 16.3, lactic is 2.1, coags are normal urine shows no evidence of infection. CT abdomen and pelvis reveals a large unstable AAA with retroperitoneal hemorrhage, suggested leak, and suspected impending rupture. Patient was given pain control, vital signs are stable at this time. Case discussed with Dr. Morales who contacted Dr. Vargas. Dr. Vargas will take patient to petroleum laboratory technician. Patient is in agreement with this plan of care. (Maria Chance) - Lab Data Lab Results 06/14/20 06/14/20 06/14/20 Range/Units 09:11 09:11 09:11 WBC (3.8-10.6) k/uL RBC (4.30-5.90) m/uL Hgb (13.0-17.5) gm/dL Hct (39.0-53.0) % MCV (80.0-100.0) fL MCH (25.0-35.0) pg MCHC (31.0-37.0) g/dL RDW (11.5-15.5) % Plt Count (150-450) k/uL Neutrophils % % Lymphocytes % % Monocytes % % Eosinophils % % Basophils % % Neutrophils # (1.3-7.7) k/uL Lymphocytes # (1.0-4.8) k/uL Monocytes # (0-1.0) k/uL Eosinophils # (0-0.7) k/uL Basophils # (0-0.2) k/uL Hypochromasia PT 10.6 (9.0-12.0) sec INR 1.0 (<1.2) APTT 25.6 (22.0-30.0) sec Sodium 139 (137-145) mmol/L Potassium 4.4 (3.5-5.1) mmol/L Chloride 103 (98-107) mmol/L Carbon Dioxide 26 (22-30) mmol/L Anion Gap 10 mmol/L BUN 19 (9-20) mg/dL Creatinine 1.00 (0.66-1.25) mg/dL Est GFR (CKD-EPI)AfAm 82 (>60 ml/min/1.73 sqM) Est GFR (CKD-EPI)NonAf 71 (>60 ml/min/1.73 sqM) Glucose 195 H (74-99) mg/dL Lactic Ac Sepsis Rflx Plasma Lactic Acid Bob 2.1 H* (0.7-2.0) mmol/L Calcium 9.6 (8.4-10.2) mg/dL Total Bilirubin 1.0 (0.2-1.3) mg/dL AST 19 (17-59) U/L ALT 13 (4-49) U/L Alkaline Phosphatase 124 (38-126) U/L Total Protein 8.2 (6.3-8.2) g/dL Albumin 4.8 (3.5-5.0) g/dL Amylase 64 (30-110) U/L Lipase 147 (23-300) U/L Urine Color Urine Appearance (Clear) Urine pH (5.0-8.0) Ur Specific [place] (1.001-1.035) Urine Protein (Negative) Urine Glucose (UA) (Negative) Urine Ketones (Negative) Urine Blood (Negative) Urine Nitrite (Negative) Urine Bilirubin (Negative) Urine Urobilinogen (<2.0) mg/dL Ur Leukocyte Esterase (Negative) Urine RBC (0-5) /hpf Urine WBC (0-5) /hpf Ur Squamous Epith Cells (0-4) /hpf Hyaline Casts (0-2) /lpf Urine Mucus (None) /hpf 06/14/20 06/14/20 06/14/20 Range/Units 09:12 09:12 10:08 WBC 16.3 H (3.8-10.6) k/uL RBC 5.66 (4.30-5.90) m/uL Hgb 15.7 (13.0-17.5) gm/dL Hct 50.2 (39.0-53.0) % MCV 88.7 (80.0-100.0) fL MCH 27.8 (25.0-35.0) pg MCHC 31.3 (31.0-37.0) g/dL RDW 14.6 (11.5-15.5) % Plt Count 183 (150-450) k/uL Neutrophils % 90 % Lymphocytes % 5 % Monocytes % 4 % Eosinophils % 1 % Basophils % 0 % Neutrophils # 14.7 H (1.3-7.7) k/uL Lymphocytes # 0.8 L (1.0-4.8) k/uL Monocytes # 0.6 (0-1.0) k/uL Eosinophils # 0.1 (0-0.7) k/uL Basophils # 0.0 (0-0.2) k/uL Hypochromasia Slight PT (9.0-12.0) sec INR (<1.2) APTT (22.0-30.0) sec Sodium (137-145) mmol/L Potassium (3.5-5.1) mmol/L Chloride (98-107) mmol/L Carbon Dioxide (22-30) mmol/L Anion Gap mmol/L BUN (9-20) mg/dL Creatinine (0.66-1.25) mg/dL Est GFR (CKD-EPI)AfAm (>60 ml/min/1.73 sqM) Est GFR (CKD-EPI)NonAf (>60 ml/min/1.73 sqM) Glucose (74-99) mg/dL Lactic Ac Sepsis Rflx Y Plasma Lactic Acid Bob (0.7-2.0) mmol/L Calcium (8.4-10.2) mg/dL Total Bilirubin (0.2-1.3) mg/dL AST (17-59) U/L ALT (4-49) U/L Alkaline Phosphatase (38-126) U/L Total Protein (6.3-8.2) g/dL Albumin (3.5-5.0) g/dL Amylase (30-110) U/L Lipase (23-300) U/L Urine Color Light Yellow Urine Appearance Clear (Clear) Urine pH 7.5 (5.0-8.0) Ur Specific [place] 1.011 (1.001-1.035) Urine Protein 2+ H (Negative) Urine Glucose (UA) 2+ H (Negative) Urine Ketones Negative (Negative) Urine Blood Trace H (Negative) Urine Nitrite Negative (Negative) Urine Bilirubin Negative (Negative) Urine Urobilinogen <2.0 (<2.0) mg/dL Ur Leukocyte Esterase Negative (Negative) Urine RBC 1 (0-5) /hpf Urine WBC 1 (0-5) /hpf Ur Squamous Epith Cells <1 (0-4) /hpf Hyaline Casts 1 (0-2) /lpf Urine Mucus Rare H (None) /hpf Critical Care Time Critical Care Time: Yes Total Critical Care Time: 40 (Leaking AAA, taken to petroleum laboratory technician) <Maria Chance - Last Filed: 06/14/20 13:15> Disposition <Esteban Morales - Last Filed: 06/14/20 10:38> Decision Date: 06/14/20 Decision Time: 11:19 <Maria Chance - Last Filed: 06/14/20 13:15> Clinical Impression: Abdominal pain, Leaking abdominal aortic aneurysm (AAA) Disposition: ADMITTED IP TO THIS [facility] Condition: Serious
[2020-06-14 09:57] LABS: Basophils % (A) 0 %; Eosinophils # (A) 0.1 k/uL (0-0.7); Eosinophils % (A) 1 %; HCT 50.2 % (39.0-53.0); HGB 15.7 gm/dL (13.0-17.5); Hypochromasia Slight; Lymphocytes # (A) 0.8 k/uL (1.0-4.8); Lymphocytes % (A) 5 %; MCH 27.8 pg (25.0-35.0); MCHC 31.3 g/dL (31.0-37.0); MCV 88.7 fL (80.0-100.0); Mean Platelet Volume 7.8; Monocytes # (A) 0.6 k/uL (0-1.0); Monocytes % (A) 4 %; Neutrophils # (A) 14.7 k/uL (1.3-7.7); Neutrophils % (A) 90 %; Platelet Count 183 k/uL (150-450); RBC 5.66 m/uL (4.30-5.90); RDW 14.6 % (11.5-15.5); WBC 16.3 k/uL (3.8-10.6)
[2020-06-14 10:03] LABS: Albumin 4.8 g/dL (3.5-5.0); Calcium 9.6 mg/dL (8.4-10.2); Potassium 4.4 mmol/L (3.5-5.1); Total Protein 8.2 g/dL (6.3-8.2)
[2020-06-14 10:18] LABS: Appearance,Urine Clear (Clear); Bilirubin,Urine Negative (Negative); Blood,Urine Trace (Negative); Color,Urine Light Yellow; Glucose,Urine (UA) 2+ (Negative); Hyaline Casts,Urine 1 /lpf (0-2); Ketones,Urine Negative (Negative); Leukocyte Esterase,Urine Negative (Negative); Mucus,Urine Rare /hpf; Nitrite,Urine Negative (Negative); PH, Urine 7.5 (5.0-8.0); Protein,Urine 2+ (Negative); RBC,Urine 1 /hpf (0-5); Specific Gravity,Urine 1.011 (1.001-1.035); Squamous Epithelial Cell,Urine <1 /hpf (0-4); Urobilinogen,Urine <2.0 mg/dL (<2.0); WBC,Urine 1 /hpf (0-5)
[2020-06-14 10:22] LABS: Partial Thromboplastin Time 25.6 sec (22.0-30.0); Prothrombin Time 10.6 sec (9.0-12.0)
[2020-06-14] MEDS ORDERED: HYDROmorphone 1 MG/ML 1 ML SYRINGE IVP STA (10:34)
--- NOTE | 2020-06-14 10:37 | CT ---
EXAMINATION TYPE: CT abdomen pelvis w con DATE OF EXAM: 06/14/2020 COMPARISON: None. HISTORY: abdominal pain, acute CT DLP: 1329.7 mGycm, Automated Exposure Control for Dose Reduction was Utilized. CONTRAST: CT scan of the abdomen and pelvis is performed without oral and with IV Contrast, patient injected wi th 100 mL of Isovue 300. FINDINGS: LUNG BASES: Mild to moderate bibasilar linear scarring and/or atelectasis. LIVER/GB: 2 large dependent gallstones. No surrounding inflammatory change. PANCREAS: No significant abnormality is seen. SPLEEN: No significant abnormality is seen. ADRENALS: Slight nodular thickening to both adrenal glands raises concern for benign lipid rich hyper plasia. KIDNEYS: There are scattered nonobstructing renal calculi bilaterally. Roughly 2-4 scattered calculi in the left kidney and 6010 scattered calculi in the right kidney. There is symmetric cortical medull lorne uptake without visualized excretion. No hydronephrosis bilaterally. There are simple appearing th in-walled cyst throughout both kidneys including largest lobulated cystic lesion mid to lower pole le micaela left kidney. Mildly distended bladder. BOWEL: Sigmoid colonic diverticulosis. PROSTATE/SEMINAL VESICLES: Enlarged prostate gland consistent with BPH. LYMPH NODES: No greater than 1cm abdominal or pelvic lymph nodes are appreciated. OSSEOUS STRUCTURES: Metallic hardware from left hip arthroplasty causes streak artifact limiting eval uation of pelvic structures. Moderate axial joint space loss and spurring in the right hip. Moderate to severe multilevel spurring in the spine. Moderate to severe disc space narrowing lumbosacral junct ion. OTHER: There is AAA measuring roughly 9 cm in length: Image 49 not extending into the common iliac ar teries bilaterally. Aneurysm measures up to 7.7 cm AP diameter by 7.3 cm transversely. Evaluation is suboptimal as noncontrast imaging not performed. There is significant noncalcified plaque occupying m ajority of the anterior lumen of aneurysm with areas of irregular hyperdensity in the opacified porti on, there is right irregular hyperdense component coronal image 51. There is more linear vague anteri or hyperdense component. In addition there is moderate to severe ill-defined retroperitoneal fluid wi th local mass effect extending into the right midabdomen. Transverse diameter of fluid collection reji roaching 25 cm. Patent celiac axis, SMA, and bilateral single renal arteries with moderate to severe plaque is noted superior to AAA. 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 IMPRESSION: Large unstable AAA with retroperitoneal hemorrhage suggesting leak and suspected impendin g rupture. Urgent vascular and/or surgical referral advised. Critical results communicated to ordering emergency care physician bilingual teacher assistant via telephone at time of dictation.
[2020-06-14] MEDS ORDERED: NALOXONE 0.4 MG/ML 1 ML VIAL IV PRN (11:16)
[2020-06-14] MEDS ORDERED: SODIUM CHLORIDE 0.9% 100 ML BAG ONE (11:26)
[2020-06-14] MEDS ORDERED: SODIUM CHLORIDE 0.9% IRRIG 1,000 ML BTL IRRIGATION ONE (11:26)
[2020-06-14] MEDS ORDERED: ALBUMIN HUMAN 5% (12.5gm) 250 ML BOTTLE IVPB ONE (11:26)
[2020-06-14] MEDS ORDERED: ROCURONIUM 10 MG/ML (10 ML VIAL) IV ONE (11:26)
[2020-06-14] MEDS ORDERED: MIDAZOLAM 2 MG/2 ML VIAL ONE (11:26)
[2020-06-14] MEDS ORDERED: NEOSTIGMINE 1 MG/ML 10 ML VIAL ONE (11:26)
[2020-06-14] MEDS ORDERED: HYDROmorphone (PF) 1 MG/ML ONE (11:26)
[2020-06-14] MEDS ORDERED: ceFAZolin 1,000 MG VIAL ONE (11:26)
[2020-06-14] MEDS ORDERED: HEPARIN SODIUM,PORCINE 10,000 UNIT/ML 1 ML VIAL ONE (11:26)
[2020-06-14] MEDS ORDERED: fentaNYL (PF) 50 MCG/ML 2 ML AMP ONE (11:26)
[2020-06-14] MEDS ORDERED: GLYCOPYRROLATE 0.2 MG/ML 2 ML VIAL ONE (11:26)
[2020-06-14] MEDS ORDERED: HEPARIN SODIUM,PORCINE 5,000 UNIT/ML 1 ML VIAL ONE (11:26)
[2020-06-14] MEDS ORDERED: PHENYLEPHRINE-0.9% NACL SYG 1 MG/10 ML SYRINGE ONE (11:26)
[2020-06-14] MEDS ORDERED: SUCCINYLCHOLINE CHLORIDE 100 MG/5 ML SYR IV ONE (11:26)
[2020-06-14] MEDS ORDERED: ETOMIDATE 2 MG/ML 10 ML VIAL ONE (11:26)
[2020-06-14] MEDS: SODIUM CHLORIDE 0.9% 1,000 ML IV ONE ×2 (11:28→17:39)
[2020-06-14] MEDS ORDERED: SODIUM CHLORIDE 0.9% 1,000 ML IV ONE ×2 (11:28)
[2020-06-14] MEDS ORDERED: LIDOCAINE 1% INJ 10MG/ML (20 ML MDV) SQ ONE (12:10)
[2020-06-14 12:23] LABS: INR 1.1 (<1.2); Prothrombin Time 11.6 sec (9.0-12.0)
[2020-06-14] MEDS ORDERED: NOREPINEPHRINE 4 MG in SODIUM CHLORIDE 0.9% 250 ML IV ONE (12:45)
[2020-06-14 13:01] LABS: ABG Base Excess -3.4 mmol/L; ABG HCO3 23 mmol/L (21-25); ABG Oxygen Saturation 99.2 % (94-97); ABG PCO2 44 mmHg (35-45); ABG PH 7.32 (7.35-7.45); ABG PO2 128 mmHg (83-108); ABG TCO2 24 mmol/L (19-24); Allen Test Performed? Yes
[2020-06-14] MEDS ORDERED: LACTATED RINGERS 1,000 ML IV ONE ×2 (14:03)
[2020-06-14 14:21] LABS: ABG Base Excess -2.4 mmol/L; ABG HCO3 23 mmol/L (21-25); ABG Oxygen Saturation 99.6 % (94-97); ABG PCO2 41 mmHg (35-45); ABG PH 7.36 (7.35-7.45); ABG PO2 134 mmHg (83-108); ABG TCO2 24 mmol/L (19-24)
[2020-06-14 14:30] LABS: Allen Test Performed? no
[2020-06-14 14:38] LABS: HCT 31.5 % (39.0-53.0); Hypochromasia Slight; MCH 28.4 pg (25.0-35.0); MCHC 32.4 g/dL (31.0-37.0); MCV 87.8 fL (80.0-100.0); Mean Platelet Volume 7.6; Platelet Count 172 k/uL (150-450); RBC 3.59 m/uL (4.30-5.90); RDW 15.2 % (11.5-15.5); WBC 21.1 k/uL (3.8-10.6)
[2020-06-14 14:41] LABS: HGB 10.2 gm/dL (13.0-17.5)
[2020-06-14] MEDS ORDERED: IOPAMIDOL-250 100ML BTL INTRAARTER ONE ×2 (15:39→16:22)
[2020-06-14 16:21] LABS: ABG Base Excess -1.2 mmol/L; ABG HCO3 24 mmol/L (21-25); ABG Oxygen Saturation 99.7 % (94-97); ABG PCO2 40 mmHg (35-45); ABG PH 7.39 (7.35-7.45); ABG PO2 128 mmHg (83-108); ABG TCO2 25 mmol/L (19-24); Allen Test Performed? Yes
[2020-06-14] MEDS ORDERED: IOPAMIDOL-250 50ML BTL INTRAARTER ONE (16:22)
--- NOTE | 2020-06-14 17:45 | P.OP ---
Date of Procedure: 06/14/20 Preoperative Diagnosis: Ruptured infrarenal abdominal aortic aneurysm. Postoperative Diagnosis: #1: Ruptured infrarenal abdominal aortic aneurysm. 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 #3: Severe left external iliac artery stenosis. #4: Extremely tortuous external iliac artery segments bilaterally. Procedure(s) Performed: #1: Ultrasound-guided cannulation bilateral common femoral arteries. #2: Open femoral artery exposure on the left. #3:Placement of aortobiiliac endograft. #4: Lesion of the balloon expandable bare metal stent left external iliac artery Implants: [employer] stent graft aortobiiliac system. Anesthesia: GETA Surgeon: Lm Vargas Bevel Operator #1: Deja Summers Estimated Blood Loss (ml): 500 IV fluids (ml): 3,000 Urine output (ml): 630 Pathology: none sent Condition: critical Disposition: ICU Indications for Procedure: Patient is a 79-year-old male who presented to the emergency room earlier today with a chief complaint of severe back pain beginning approximately midnight. In the emergency room he did undergo CT angiogram of his abdominal pelvic vessels which demonstrates a ruptured abdominal aortic aneurysm. Patient is thus offered repair of ruptured aneurysm. Description of Procedure: Patient was brought to special procedure suite. He was sterilely prepped and draped in usual manner. Oley catheter is placed to gravity drainage. Patient received 2 g of Ancef intravenously for of lactic perioperative antibiotic therapy. He was administered general endotracheal anesthesia delivered by the department anesthesiology. Utilizing ultrasound a multipurpose needle was utilized to cannulate the right common femoral artery. Once cannulated Softip guidewire is advanced into the iliac artery. The needle was withdrawn and a 6-Hungarian sheath was placed. Subsequently 2 Perclose devices were placed for ventral closure of the artery postoperatively. Once this was achieved an 8-Hungarian sheath was placed in the vessel. A similar procedure was performed on the contralateral side however extreme tortuosity prevented placement of Perclose device. I was unable to advance multiple guidewire/catheter combinations. Attempt at guidewire snare is made by advancing a catheter and guidewire combinations across the aortic bifurcation from the right down into the left common iliac artery. Able to snare the wire. Eventually additional attempts at advancing the guidewire and catheter combination were successful with a catheter and guidewire being advanced into the infrarenal abdominal aorta. Once this was achieved the guidewire was removed from the left and a Lunderquist wire was advanced with the tip placed in the aortic knob. Similarly a Lunderquist wire was advanced from the right side. The patient was systemically heparinized and ACT was drawn after adequate circulation time this is found to be 277 seconds was felt to be adequate. A marker pigtail catheter was advanced over the Lunderquist wire and positioned at the T12-L1 interspace after the wire was removed. Planing angiogram was performed. The origins of the renal arteries were marked. On the contralateral side the ribs a place sheath was exchanged for an Endurate 2 stent graft system main body. This measured 32 x 14 x 103 cm. It was advanced to the level of the renal arteries and deployed. Repeat angiogram demonstrated the graft system to be in good position as below the origin of both renal arteries. This was deployed until the contralateral gate deployed. The suprarenal shunt device was deployed. From the left side a guidewire and angled glide catheter combination were utilized to cannulate the left limb gate. The catheter was exchanged for a marker pigtail catheter and a left iliac angiogram was performed. It measured approximately 150 cm from the proximal portion the gait to the origin of the left internal iliac artery. A 16 x 28 x 156 mm Endurate 2 stent graft limb was selected. Through the pigtail catheter Lunderquist wire was readvanced and over and the pigtail catheter removed. The limb was deployed. The remaining right limb of the main body was then fully deployed. Attention was turned to the right limb radial catheter was utilized to measure the distance between the gait and the bifurcation of the internal/external iliac arteries. A 16 mm x 20 mm x 124 mm limb was selected and deployed. A Coda balloon was then utilized to balloon dilate the inflow and both limbs of the stent graft system. Completion angiogram was then performed. This demonstrated no evidence of endoleak however a severe left iliac artery stenosis essentially at the origin of the external iliac artery was identified. This was treated with a 12 mm x 40 mm balloon expandable stent. Completion angiogram demonstrated this now to be patent with no significant issues noted. With the above findings noted on the right the sheath and guidewires were withdrawn and the puncture arteriotomy was closed with the use a placed Perclose devices on the left a cutdown was performed and the enterotomy is closed was 6-0 Prolene suture. At the completion of the case patient had easily palpable femoral pulses. Both feet appear to be adequately perfused with normal pink color being noted bilaterally. Total contrast volume is 180 mL of 5 contrast. Total fluoroscopy time 102.3 minutes.
[2020-06-14] MEDS ORDERED: LABETALOL 5 MG/ML VIAL MDV IV ONE (17:50)
[2020-06-14] MEDS ORDERED: HYDROmorphone 0.5 MG/0.5 ML SYRINGE IVP ONE ×2 (17:50→18:00)
[2020-06-14 18:08] LABS: Glucose,Whole Blood 116 mg/dL (75-99)
[2020-06-14 18:32] LABS: Basophils % (A) 0 %; Eosinophils % (A) 0 %; HCT 35.8 % (39.0-53.0); HGB 11.7 gm/dL (13.0-17.5); Hypochromasia Slight; Lymphocytes % (A) 7 %; MCH 28.7 pg (25.0-35.0); MCHC 32.7 g/dL (31.0-37.0); MCV 87.8 fL (80.0-100.0); Mean Platelet Volume 7.8; Monocytes # (A) 1.1 k/uL (0-1.0); Monocytes % (A) 7 %; Neutrophils # (A) 12.5 k/uL (1.3-7.7); Neutrophils % (A) 85 %; Platelet Count 114 k/uL (150-450); RBC 4.08 m/uL (4.30-5.90); RDW 15.9 % (11.5-15.5); WBC 14.7 k/uL (3.8-10.6)
[2020-06-14 18:41] LABS: ALT 9 U/L (4-49); AST 18 U/L (17-59); African American GFR (CKD) >90 (>60 ml/min/1.73 sqM); Albumin 2.8 g/dL (3.5-5.0); Alkaline Phosphatase 57 U/L (38-126); Anion Gap 5 mmol/L; Blood Urea Nitrogen 16 mg/dL (9-20); Calcium 7.2 mg/dL (8.4-10.2); Carbon Dioxide 27 mmol/L (22-30); Chloride 110 mmol/L (98-107); Glucose 139 mg/dL (74-99); Non-African American GFR(CKD) 80 (>60 ml/min/1.73 sqM); Potassium 4.5 mmol/L (3.5-5.1); Sodium 142 mmol/L (137-145)
[2020-06-14 19:19] LABS: Glucose,Whole Blood 133 mg/dL (75-99)
[2020-06-14] MEDS: SODIUM CHLORIDE 0.9% 1,000 ML IV SCH (19:36)
[2020-06-14 19:43] LABS: Glucose,Whole Blood 143 mg/dL (75-99)
[2020-06-14 20:03] LABS: ABG Base Excess -2.1 mmol/L; ABG HCO3 27 mmol/L (21-25); ABG Oxygen Saturation 89.8 % (94-97); ABG PO2 70 mmHg (83-108); ABG TCO2 30 mmol/L (19-24)
[2020-06-14 20:06] LABS: ABG PCO2 82 mmHg (35-45); ABG PH 7.13 (7.35-7.45); Allen Test Performed? no
[2020-06-14 21:52] LABS: ABG Base Excess -2.1 mmol/L; ABG HCO3 26 mmol/L (21-25); ABG Oxygen Saturation 98.1 % (94-97); ABG PCO2 63 mmHg (35-45); ABG PH 7.22 (7.35-7.45); ABG PO2 106 mmHg (83-108); ABG TCO2 28 mmol/L (19-24)
[2020-06-14 21:57] LABS: Allen Test Performed? no
[2020-06-15] MEDS: CLEVIDIPINE BUTYRATE 25 MG in EMPTY BAG 1 BAG IV SCH ×2 (00:08→20:02)
[2020-06-15] MEDS: SODIUM CHLORIDE 0.9% 1,000 ML IV SCH ×3 (00:33→23:48)
[2020-06-15 03:59] LABS: Anisocytosis Slight; Basophils % (A) 0 %; Eosinophils % (A) 0 %; HCT 32.5 % (39.0-53.0); HGB 10.6 gm/dL (13.0-17.5); Hypochromasia Slight; Lymphocytes # (A) 0.7 k/uL (1.0-4.8); Lymphocytes % (A) 5 %; MCH 28.8 pg (25.0-35.0); MCHC 32.5 g/dL (31.0-37.0); MCV 88.8 fL (80.0-100.0); Mean Platelet Volume 8.4; Monocytes # (A) 1.1 k/uL (0-1.0); Monocytes % (A) 7 %; Neutrophils # (A) 13.3 k/uL (1.3-7.7); Neutrophils % (A) 87 %; Platelet Count 112 k/uL (150-450); Poikilocytosis Slight; RBC 3.66 m/uL (4.30-5.90); RDW 16.3 % (11.5-15.5); WBC 15.2 k/uL (3.8-10.6)
[2020-06-15 04:04] LABS: Appearance,Urine Clear (Clear); Bilirubin,Urine Negative (Negative); Blood,Urine Moderate (Negative); Color,Urine Yellow; Glucose,Urine (UA) Negative (Negative); Ketones,Urine Negative (Negative); Leukocyte Esterase,Urine Negative (Negative); Mucus,Urine Occasional /hpf; Nitrite,Urine Negative (Negative); PH, Urine 5.5 (5.0-8.0); Protein,Urine 1+ (Negative); RBC,Urine 53 /hpf (0-5); Squamous Epithelial Cell,Urine <1 /hpf (0-4); Urobilinogen,Urine <2.0 mg/dL (<2.0); WBC,Urine 17 /hpf (0-5)
[2020-06-15 04:07] LABS: Calcium 7.3 mg/dL (8.4-10.2); Potassium 5.1 mmol/L (3.5-5.1)
[2020-06-15 04:08] LABS: Specific Gravity,Urine >1.050 (1.001-1.035)
--- NOTE | 2020-06-15 06:57 | XR ---
EXAMINATION TYPE: XR chest 1V portable DATE OF EXAM: 06/15/2020 HISTORY: Shortness of breath. COMPARISON: 01/03/2018 TECHNIQUE: Single view of the chest is submitted. FINDINGS: Demonstrated are scattered senescent parenchymal change. Increased density right medial lung base may reflect developing infiltrate or atelectasis. Correlate clinically and progress studies are recommended. There is also mild increased density at the left med ial lung base. The heart is stable. Hilar and mediastinal structures are within normal limits. Degenerative changes are seen of the dorsal spine. IMPRESSION: 1. Increased density right medial lung base may reflect developing infiltrate or atelectasis. Correl ate clinically and progress studies are recommended. There is also mild increased density at the left medial lung base.
--- NOTE | 2020-06-15 08:27 | IR ---
EXAMINATION TYPE: IR barge captain aorta DATE OF EXAM: 06/14/2020 COMPARISON: NONE HISTORY: Fluoroscopy time. Fluoroscopy was provided to the referring clinician.
[2020-06-15] MEDS ORDERED: PANTOPRAZOLE 40 MG/10 ML VIAL IV SCH (09:00)
[2020-06-15] MEDS: atenoloL 25 MG TAB PO SCH ×2 (09:52→21:06)
--- NOTE | 2020-06-15 11:22 | P.CNPUL ---
History of Present Illness Consult date: 06/15/20 Requesting physician: Lm Vargas Reason for consult: other Chief complaint: Severe back pain related to ruptured infrarenal abdominal aortic aneurysm History of present illness: This is a 79-year-old white male patient who follows with the [facility] clinic, and has a past medical history of chronic A. fib, COPD, not oxygen dependent at baseline, hypertension, [id number] smoker, still smoking, hyperlipidemia, chronic kidney disease, sleep apnea not on CPAP, osteoarthritis, history of GI bleeding related to peptic ulcers, who came into the hospital on 06/14/2020 through the emergency department for evaluation of right-sided abdominal pain that was a sharp and severe mostly on the right side of the abdomen with some radiation to the right side. Evaluation with CT of the abdomen and pelvis revealed abdominal aortic aneurysm measuring roughly 9 cm in length with retroperitoneal hemorrhage suggesting weak and suspected impending rupture, urgent vascular surgical referral was placed, and patient underwent placement of aortobiiliac endograft, and bare-metal expandable stent placed in the left external iliac artery by Dr. Hummel and Dr. Summers. Patient was transferred to the intensive care unit after observation in the recovery, he did extubate in the recovery, arrived in the intensive care unit later in the evening, slightly hypertensive, and drowsy, and his blood gases did reveal acute hypercapnic respiratory failure, with pO2 of 70, pCO2 of 82, and pH of 7.13, this was done on 44% FiO2, patient subsequently placed on BiPAP support, his subsequent blood gases showed improvement in the ventilation and oxygenation, patient was removed from BiPAP support as he became more more alert, and he is currently on 2 L of oxygen, with pulse ox of 94-95%, hemodynamically he stable, he never required Cleviprex last night, blood pressure is 129/52, he is in atrial fibrillation with a controlled rate, he is been afebrile. He denies any shortness of breath, no cough or congestion, we'll provide him with incentive spirometer, he is on cefazolin following his surgery, his bilateral groin incisions are clean dry and intact, his distal pulses are palpable. Review of Systems All systems: negative Constitutional: Denies chills, Denies fever Eyes: denies blurred vision, denies pain Ears, nose, mouth and throat: Denies headache, Denies sore throat Cardiovascular: Denies chest pain, Denies shortness of breath Respiratory: Denies cough Gastrointestinal: Reports abdominal pain, Denies diarrhea, Denies nausea, Denies vomiting Musculoskeletal: Denies myalgias Integumentary: Denies pruritus, Denies rash Neurological: Denies numbness, Denies weakness Psychiatric: Denies anxiety, Denies depression Endocrine: Denies fatigue, Denies weight change Past Medical History Past Medical History: Atrial Fibrillation, Cancer, COPD, Hyperlipidemia, Hypertension, Osteoarthritis (OA), Prostate Disorder, Renal Disease, Skin Diso rder, Sleep Apnea/CPAP/BIPAP Additional Past Medical History / Comment(s): 1960s had bleeding stomach ulcer with surgery, acute renal failure 11/2017, elevated PSA, gout bilateral ankles and toes both feet, chronic back pain, psoriasis, skin cancer with removals. No CPAP use. History of Any Multi-Drug Resistant Organisms: None Reported Past Surgical History: Appendectomy, Back Surgery, Joint Replacement Additional Past Surgical History / Comment(s): Total left hip arthroplasty, gastric surgery for bleeding ulcer, 4 back surgeries, skin cancer removals. Past Anesthesia/Blood Transfusion Reactions: Previous Problems w/ Anesthesia Additional Past Anesthesia/Blood Transfusion Reaction / Comment(s): "Prefers not to have Ativan."; extended recovery from anesthesia Past Psychological History: No Psychological Hx Reported Additional Psychological History / Comment(s): . Smoking Status: Current every day smoker Past Alcohol Use History: None Reported Additional Past Alcohol Use History / Comment(s): . Past Drug Use History: None Reported - Past Family History Mother Family Medical History: Cancer, Skin Disorder Additional Family Medical History / Comment(s): Psoriasis, unknown to pt type of cancer. Father Family Medical History: No Reported History Additional Family Medical History / Comment(s): Father was healthy. Brother(s) Family Medical History: Cancer Additional Family Medical History / Comment(s): COLON CANCER. Medications and Allergies Home Medications Medication Instructions Recorded Confirmed Type Tamsulosin HCl [Flomax] 0.4 mg PO DAILY 01/03/18 06/14/20 History allopurinoL [Zyloprim] 300 mg PO DAILY 01/03/18 06/14/20 History atenoloL [Atenolol] 25 mg PO BID 01/03/18 06/14/20 History Aspirin 325 mg PO DAILY #90 tab 11/27/18 06/14/20 Rx Allergies Allergy/AdvReac Type Severity Reaction Status Date / Time No Known Allergies Allergy Verified 06/14/20 10:45 Physical Exam Vitals: Vital Signs Temp Pulse Pulse Pulse Resp BP BP 06/15/20 10:00 93 41 H 123/71 06/15/20 09:00 103 H 16 126/81 06/15/20 08:00 111 H 18 115/77 06/15/20 07:45 110 H 12 126/68 06/15/20 07:35 16 06/15/20 07:30 124 H 22 111/74 06/15/20 07:15 96 15 123/71 06/15/20 07:00 122 H 16 106/81 06/15/20 06:45 114 H 17 100/63 06/15/20 06:30 112 H 16 96/70 06/15/20 06:15 115 H 14 115/69 06/15/20 06:00 99 15 88/76 06/15/20 05:45 109 H 17 114/81 06/15/20 05:30 128 H 17 109/67 06/15/20 05:15 113 H 15 86/56 06/15/20 05:00 115 H 18 115/65 06/15/20 04:45 124 H 17 116/69 06/15/20 04:30 111 H 17 126/69 06/15/20 04:15 114 H 14 103/75 06/15/20 04:00 98.3 F 112 H 105 H 14 109/67 06/15/20 03:45 101 H 15 106/62 06/15/20 03:30 104 H 16 117/70 06/15/20 03:15 109 H 15 127/73 06/15/20 03:00 137 H 14 109/64 06/15/20 02:45 113 H 16 102/66 06/15/20 02:30 134 H 15 101/87 06/15/20 02:15 129 H 17 116/68 06/15/20 02:00 114 H 16 112/82 06/15/20 01:45 117 H 14 110/62 06/15/20 01:30 123 H 13 109/64 06/15/20 01:15 109 H 18 111/96 06/15/20 01:00 128 H 13 113/70 06/15/20 00:45 118 H 15 92/63 06/15/20 00:30 120 H 15 122/91 06/15/20 00:15 124 H 13 117/80 06/15/20 00:00 97.8 F 104 H 13 129/75 06/14/20 23:45 115 H 12 126/64 06/14/20 23:36 113 H 20 06/14/20 23:30 101 H 13 132/80 06/14/20 23:15 98 10 L 114/79 06/14/20 23:00 101 H 12 120/81 06/14/20 22:45 107 H 13 97/60 06/14/20 22:30 105 H 18 112/67 06/14/20 22:15 103 H 26 H 99/63 06/14/20 22:00 125 H 20 106/67 06/14/20 21:45 112 H 14 106/70 06/14/20 21:30 110 H 113 H 15 120/69 06/14/20 21:15 112 H 12 118/75 06/14/20 21:00 104 H 11 L 130/100 06/14/20 20:45 101 H 106 H 12 124/66 06/14/20 20:30 109 H 112 H 12 120/69 06/14/20 20:15 98 24 115/61 06/14/20 20:00 105 H 21 106/65 06/14/20 19:45 97.9 F 94 20 117/75 06/14/20 19:00 110 H 16 06/14/20 18:45 113 H 16 06/14/20 18:15 114 H 16 06/14/20 18:00 98 16 143/78 06/14/20 17:45 101 H 16 189/99 06/14/20 17:29 97.7 F 111 H 16 131/89 06/14/20 11:34 108 H 18 126/96 BP BP Pulse Ox 06/15/20 10:00 94 L 06/15/20 09:00 95 06/15/20 08:00 91 L 06/15/20 07:45 93 L 06/15/20 07:35 06/15/20 07:30 96 06/15/20 07:15 93 L 06/15/20 07:00 96 06/15/20 06:45 97 06/15/20 06:30 94 L 06/15/20 06:15 95 06/15/20 06:00 94 L 06/15/20 05:45 97 06/15/20 05:30 96 06/15/20 05:15 92 L 06/15/20 05:00 93 L 06/15/20 04:45 93 L 06/15/20 04:30 95 06/15/20 04:15 94 L 06/15/20 04:00 93 L 06/15/20 03:45 93 L 06/15/20 03:30 93 L 06/15/20 03:15 92 L 06/15/20 03:00 92 L 06/15/20 02:45 93 L 06/15/20 02:30 95 06/15/20 02:15 95 06/15/20 02:00 97 06/15/20 01:45 94 L 06/15/20 01:30 94 L 06/15/20 01:15 95 06/15/20 01:00 93 L 06/15/20 00:45 93 L 06/15/20 00:30 96 06/15/20 00:15 94 L 06/15/20 00:00 95 06/14/20 23:45 93 L 06/14/20 23:36 06/14/20 23:30 91 L 06/14/20 23:15 06/14/20 23:00 92 L 06/14/20 22:45 89 L 06/14/20 22:30 97 06/14/20 22:15 96 06/14/20 22:00 97 06/14/20 21:45 97 06/14/20 21:30 96 06/14/20 21:15 88 L 06/14/20 21:00 88 L 06/14/20 20:45 94 L 06/14/20 20:30 93 L 06/14/20 20:15 90 L 06/14/20 20:00 94 L 06/14/20 19:45 91 L 06/14/20 19:00 153/70 187/57 99 06/14/20 18:45 150/67 171/56 99 06/14/20 18:15 155/79 96 06/14/20 18:00 181/61 96 06/14/20 17:45 195/93 96 06/14/20 17:29 97 11/09/20 11:34 96 Intake and Output 06/14/20 06/15/20 06/15/20 22:59 06:59 14:59 Intake Total 1420 1175 300 Output Total 200 283 215 Balance 1220 892 85 Intake: IV 800 1175 300 Sodium Chloride 0.9% 1, 250 1125 250 000 ml @ 125 mls/hr IV . Q8H NEHA Rx#:[id number] ceFAZolin 1,000 mg In 50 50 Sodium Chloride 0.9% 50 ml @ 100 mls/hr IVPB Q8HR NEHA Rx#:[id number] Blood Product 620 Rc As-1 Unit 310 [id number] Rc As-1 Unit 310 [id number] Output: Urine 200 283 215 Other: Voiding Method Indwelling Catheter Indwelling Catheter Indwelling Catheter Weight 88.451 kg 97.6 kg ABP, PAP, CO, CI - Last 8 Hours Arterial Blood Pressure 105/43 Arterial Blood Pressure 129/52 Arterial Blood Pressure 122/51 Arterial Blood Pressure 123/57 Arterial Blood Pressure 114/57 Arterial Blood Pressure 127/60 Arterial Blood Pressure 112/57 Arterial Blood Pressure 109/56 Arterial Blood Pressure 115/56 Arterial Blood Pressure 131/60 Arterial Blood Pressure 116/59 Arterial Blood Pressure 112/56 Arterial Blood Pressure 100/57 Arterial Blood Pressure 115/54 Arterial Blood Pressure 98/51 Arterial Blood Pressure 92/56 Arterial Blood Pressure 124/62 Arterial Blood Pressure 134/64 Arterial Blood Pressure 134/65 Arterial Blood Pressure 111/55 Arterial Blood Pressure 113/60 Arterial Blood Pressure 108/61 GENERAL EXAM: Drowsy but arousable, 79-year-old white male, a 2 L of oxygen with pulse ox of 95%, comfortable in no apparent distress. HEAD: Normocephalic/atraumatic. EYES: Normal reaction of pupils, equal size. Conjunctiva pink, sclera white. NOSE: Clear with pink turbinates. THROAT: No erythema or exudates. NECK: No masses, no JVD, no thyroid enlargement, no adenopathy. CHEST: No chest wall deformity. Symmetrical expansion. LUNGS: Equal air entry with no crackles, wheeze, rhonchi or dullness. CVS: Regular rate and rhythm, normal S1 and S2, no gallops, no murmurs, no rubs ABDOMEN: Soft, nontender, obese. No hepatosplenomegaly, normal bowel sounds, no guarding or rigidity. EXTREMITIES: No clubbing, no edema, no cyanosis, 2+ pulses and upper and lower extremities. Bilateral groin incisions covered with surgical dressings, clean dry and intact, MUSCULOSKELETAL: Muscle strength and tone normal. SPINE: No scoliosis or deformity SKIN: No rashes CENTRAL NERVOUS SYSTEM: Drowsy and oriented -3. No focal deficits, tone is normal in all 4 extremities. PSYCHIATRIC: Drowsy and oriented -3. Appropriate affect. Intact judgment and insight. Results - Laboratory Findings CBC and BMP: 06/15/20 03:45 06/15/20 03:45 ABG ABG pH 7.22 (7.35-7.45) L 06/14/20 21:47 ABG pCO2 63 mmHg (35-45) H 06/14/20 21:47 ABG pO2 106 mmHg (83-108) 06/14/20 21:47 ABG O2 Saturation 98.1 % (94-97) H 06/14/20 21:47 PT/INR, D-dimer PT 11.6 sec (9.0-12.0) 06/14/20 11:56 INR 1.1 (<1.2) 06/14/20 11:56 Abnormal lab findings: Abnormal Labs 06/14/20 06/14/20 06/14/20 09:11 09:11 09:12 WBC 16.3 H RBC Hgb Hct RDW Plt Count Neutrophils # 14.7 H Lymphocytes # 0.8 L Monocytes # ABG pH ABG pCO2 ABG pO2 ABG HCO3 ABG Total CO2 ABG O2 Saturation Chloride Glucose 195 H POC Glucose (mg/dL) Plasma Lactic Acid Bob 2.1 H* Calcium Total Protein Albumin Ur Specific [place] Urine Protein Urine Glucose (UA) Urine Blood Urine RBC Urine WBC Urine Mucus Crossmatch 06/14/20 06/14/20 06/14/20 09:12 11:56 12:55 WBC RBC Hgb Hct RDW Plt Count Neutrophils # Lymphocytes # Monocytes # ABG pH 7.32 L ABG pCO2 ABG pO2 128 H ABG HCO3 ABG Total CO2 ABG O2 Saturation 99.2 H Chloride Glucose POC Glucose (mg/dL) Plasma Lactic Acid Bob Calcium Total Protein Albumin Ur Specific [place] Urine Protein 2+ H Urine Glucose (UA) 2+ H Urine Blood Trace H Urine RBC Urine WBC Urine Mucus Rare H Crossmatch See Detail 06/14/20 06/14/20 06/14/20 14:10 14:15 16:19 WBC 21.1 H RBC 3.59 L Hgb 10.2 L D Hct 31.5 L RDW Plt Count Neutrophils # Lymphocytes # Monocytes # ABG pH ABG pCO2 ABG pO2 134 H 128 H ABG HCO3 ABG Total CO2 25 H ABG O2 Saturation 99.6 H 99.7 H Chloride Glucose POC Glucose (mg/dL) Plasma Lactic Acid Bob Calcium Total Protein Albumin Ur Specific [place] Urine Protein Urine Glucose (UA) Urine Blood Urine RBC Urine WBC Urine Mucus Crossmatch 06/14/20 06/14/20 06/14/20 18:07 19:17 19:42 WBC RBC Hgb Hct RDW Plt Count Neutrophils # Lymphocytes # Monocytes # ABG pH ABG pCO2 ABG pO2 ABG HCO3 ABG Total CO2 ABG O2 Saturation Chloride Glucose POC Glucose (mg/dL) 116 H 133 H 143 H Plasma Lactic Acid Bob Calcium Total Protein Albumin Ur Specific [place] Urine Protein Urine Glucose (UA) Urine Blood Urine RBC Urine WBC Urine Mucus Crossmatch 06/14/20 06/14/20 06/14/20 19:58 21:47 Unknown WBC 14.7 H RBC 4.08 L Hgb 11.7 L Hct 35.8 L RDW 15.9 H Plt Count 114 L Neutrophils # 12.5 H Lymphocytes # Monocytes # 1.1 H ABG pH 7.13 L* 7.22 L ABG pCO2 82 H* 63 H ABG pO2 70 L ABG HCO3 27 H 26 H ABG Total CO2 30 H 28 H ABG O2 Saturation 89.8 L 98.1 H Chloride Glucose POC Glucose (mg/dL) Plasma Lactic Acid Bob Calcium Total Protein Albumin Ur Specific [place] Urine Protein Urine Glucose (UA) Urine Blood Urine RBC Urine WBC Urine Mucus Crossmatch 06/14/20 06/15/20 06/15/20 Unknown 03:45 03:45 WBC 15.2 H RBC 3.66 L Hgb 10.6 L Hct 32.5 L RDW 16.3 H Plt Count 112 L Neutrophils # 13.3 H Lymphocytes # 0.7 L Monocytes # 1.1 H ABG pH ABG pCO2 ABG pO2 ABG HCO3 ABG Total CO2 ABG O2 Saturation Chloride 110 H 111 H Glucose 139 H 152 H POC Glucose (mg/dL) Plasma Lactic Acid Bob Calcium 7.2 L 7.3 L Total Protein 5.0 L Albumin 2.8 L Ur Specific [place] Urine Protein Urine Glucose (UA) Urine Blood Urine RBC Urine WBC Urine Mucus Crossmatch 06/15/20 03:45 WBC RBC Hgb Hct RDW Plt Count Neutrophils # Lymphocytes # Monocytes # ABG pH ABG pCO2 ABG pO2 ABG HCO3 ABG Total CO2 ABG O2 Saturation Chloride Glucose POC Glucose (mg/dL) Plasma Lactic Acid Bob Calcium Total Protein Albumin Ur Specific [place] >1.050 H Urine Protein 1+ H Urine Glucose (UA) Urine Blood Moderate H Urine RBC 53 H Urine WBC 17 H Urine Mucus Occasional H Crossmatch - Diagnostic Findings Chest x-ray: report reviewed, image reviewed Assessment and Plan Plan: Assessment: #1. Acute hypoxic respiratory failure related to hypoventilation, and atelectasis #2. Acute ruptured infrarenal abdominal aortic aneurysm, patient presented with right-sided abdominal pain, patient's status post urgent irritability a candidal graft, and stent placement to the left external iliac artery, postoperative day #1 #3. Acute hypercapnic respiratory failure related to hypoventilation and atelectasis, requiring BiPAP support, improved, patient is currently on nasal ca nnula #4. Extensive history of smoking, patient carries greater than 60-[id number]-okct smoking history, still smoking one to 2 packs per day #5. Hypertension #6. Hyperlipidemia #7. COPD not oxygen dependent at baseline #8. BPH #9. Chronic back pain #10. Psoriasis #11. Obstructive sleep apnea not on CPAP therapy Plan: Provide incentive spirometry, today's chest x-ray has been reviewed, showing basilar atelectasis, no fever or chills, continue with antibiotics per vascular surgery, anticoagulation and antiplatelet therapy per vascular surgery. Patient is hemodynamically stable, did not require Cleviprex last night, his labs have been reviewed. Patient has been off BiPAP support this morning, use it when necessary and at bedtime, maintain pain control. Continue close monitoring in the intensive care unit I performed a history & physical examination of the patient and discussed their management with my nurse practitioner, Mariana Mott. I reviewed the nurse practitioner's note and agree with the documented findings and plan of care. Lung sounds are positive for diminished breath sounds. The findings and the impression was discussed with the patient. I attest to the documentation by the nurse practitioner. Time with Patient: Greater than 30
[2020-06-15] MEDS: allopurinoL 300 MG TAB PO SCH (11:24)
[2020-06-15] MEDS: TAMSULOSIN 0.4 MG CAP.ER.24H PO SCH (11:24)
--- NOTE | 2020-06-15 12:04 | P.PN ---
Subjective Progress Note Date: 06/15/20 Principal diagnosis: Ruptured infrarenal abdominal aortic aneurysm The patient is a 79-year-old male who presented to the emergency department yesterday with complaints of severe back pain and abdominal pain that started in the middle of the night. In the emergency department he underwent a CT angiogram of the abdomen pelvis which demonstrated a ruptured abdominal a ortic aneurysm. He is status postop day #1 for a infrarenal abdominal aortic aneurysm repair with aortobiliac endograft. The patient has a past medical history of chronic atrial fibrillation, COPD, hypertension, current smoker hyperlipidemia, chronic kidney disease, obstructive sleep apnea, osteoarthritis and history of GI bleed related to peptic ulcers. The patient currently denies any chest pain or shortness of breath. He denies any active bleeding from groin sites. Has some mild tenderness. Is tolerating a regular diet. Summers catheter still in place. Objective - Vital Signs Vital signs: Vital Signs Temp 98.3 F 06/15/20 04:00 Pulse 111 H 06/15/20 08:00 Resp 18 06/15/20 08:00 BP 115/77 06/15/20 08:00 Pulse Ox 91 L 06/15/20 08:00 Intake & Output 06/14/20 06/15/20 06/15/20 18:59 06:59 18:59 Intake Total 1930 1925 125 Output Total 483 35 Balance 1930 1442 90 Weight 88.451 kg 97.6 kg Intake: IV 1000 1925 125 Sodium Chloride 0.9% 1, 1375 125 000 ml @ 125 mls/hr IV . Q8H [facility] Rx#:[id number] ceFAZolin 1,000 mg In 50 Sodium Chloride 0.9% 50 ml @ 100 mls/hr IVPB Q8HR [facility] Rx#:[id number] Blood Product 930 Rc As-1 Unit 310 [id number] Rc As-1 Unit 310 [id number] Rc As-1 Unit 310 [id number] Output: Urine 483 35 Other: Voiding Method Toilet Indwelling Catheter Indwelling Catheter ABP, PAP, CO, CI - Last Documented Arterial Blood Pressure 122/51 - Exam General appearance: The patient is alert, oriented, in no acute distress. HET: Head is normocephalic and atraumatic. Neck: Supple without lymphadenopathy. Trachea midline. Heart: S1 S2. Regular rate and rhythm. Lungs: No crackles or wheezes are heard. Abdomen: Soft, nontender, nondistended with bowel sounds. No peritoneal signs. No palpable organomegaly or masses. Groins: Bilateral groins with mild ecchymosis. No active bleeding. Extremities: Normal skin color and turgor. No cyanosis, rash, ulceration, clubbing, or edema. +2 palpable radial pulses bilaterally. Bilateral dorsalis pedis Doppler signals. Full range of motion of bilateral lower extremities. Neurological: No focal deficits. Strength and sensation are grossly intact. - Labs CBC & Chem 7: 06/15/20 03:45 06/15/20 03:45 Labs: Abnormal Lab Results - Last 24 Hours (Table) 06/14/20 06/14/20 06/14/20 Range/Units 09:11 09:11 09:12 WBC 16.3 H (3.8-10.6) k/uL RBC (4.30-5.90) m/uL Hgb (13.0-17.5) gm/dL Hct (39.0-53.0) % RDW (11.5-15.5) % Plt Count (150-450) k/uL Neutrophils # 14.7 H (1.3-7.7) k/uL Lymphocytes # 0.8 L (1.0-4.8) k/uL Monocytes # (0-1.0) k/uL ABG pH (7.35-7.45) ABG pCO2 (35-45) mmHg ABG pO2 (83-108) mmHg ABG HCO3 (21-25) mmol/L ABG Total CO2 (19-24) mmol/L ABG O2 Saturation (94-97) % Chloride (98-107) mmol/L Glucose 195 H (74-99) mg/dL POC Glucose (mg/dL) (75-99) mg/dL Plasma Lactic Acid Bob 2.1 H* (0.7-2.0) mmol/L Calcium (8.4-10.2) mg/dL Total Protein (6.3-8.2) g/dL Albumin (3.5-5.0) g/dL Ur Specific [place] (1.001-1.035) Urine Protein (Negative) Urine Glucose (UA) (Negative) Urine Blood (Negative) Urine RBC (0-5) /hpf Urine WBC (0-5) /hpf Urine Mucus (None) /hpf Crossmatch 06/14/20 06/14/20 06/14/20 Range/Units 09:12 11:56 12:55 WBC (3.8-10.6) k/uL RBC (4.30-5.90) m/uL Hgb (13.0-17.5) gm/dL Hct (39.0-53.0) % RDW (11.5-15.5) % Plt Count (150-450) k/uL Neutrophils # (1.3-7.7) k/uL Lymphocytes # (1.0-4.8) k/uL Monocytes # (0-1.0) k/uL ABG pH 7.32 L (7.35-7.45) ABG pCO2 (35-45) mmHg ABG pO2 128 H (83-108) mmHg ABG HCO3 (21-25) mmol/L ABG Total CO2 (19-24) mmol/L ABG O2 Saturation 99.2 H (94-97) % Chloride (98-107) mmol/L Glucose (74-99) mg/dL POC Glucose (mg/dL) (75-99) mg/dL Plasma Lactic Acid Bob (0.7-2.0) mmol/L Calcium (8.4-10.2) mg/dL Total Protein (6.3-8.2) g/dL Albumin (3.5-5.0) g/dL Ur Specific [place] (1.001-1.035) Urine Protein 2+ H (Negative) Urine Glucose (UA) 2+ H (Negative) Urine Blood Trace H (Negative) Urine RBC (0-5) /hpf Urine WBC (0-5) /hpf Urine Mucus Rare H (None) /hpf Crossmatch See Detail 06/14/20 06/14/20 06/14/20 Range/Units 14:10 14:15 16:19 WBC 21.1 H (3.8-10.6) k/uL RBC 3.59 L (4.30-5.90) m/uL Hgb 10.2 L D (13.0-17.5) gm/dL Hct 31.5 L (39.0-53.0) % RDW (11.5-15.5) % Plt Count (150-450) k/uL Neutrophils # (1.3-7.7) k/uL Lymphocytes # (1.0-4.8) k/uL Monocytes # (0-1.0) k/uL ABG pH (7.35-7.45) ABG pCO2 (35-45) mmHg ABG pO2 134 H 128 H (83-108) mmHg ABG HCO3 (21-25) mmol/L ABG Total CO2 25 H (19-24) mmol/L ABG O2 Saturation 99.6 H 99.7 H (94-97) % Chloride (98-107) mmol/L Glucose (74-99) mg/dL POC Glucose (mg/dL) (75-99) mg/dL Plasma Lactic Acid Bob (0.7-2.0) mmol/L Calcium (8.4-10.2) mg/dL Total Protein (6.3-8.2) g/dL Albumin (3.5-5.0) g/dL Ur Specific [place] (1.001-1.035) Urine Protein (Negative) Urine Glucose (UA) (Negative) Urine Blood (Negative) Urine RBC (0-5) /hpf Urine WBC (0-5) /hpf Urine Mucus (None) /hpf Crossmatch 06/14/20 06/14/20 06/14/20 Range/Units 18:07 19:17 19:42 WBC (3.8-10.6) k/uL RBC (4.30-5.90) m/uL Hgb (13.0-17.5) gm/dL Hct (39.0-53.0) % RDW (11.5-15.5) % Plt Count (150-450) k/uL Neutrophils # (1.3-7.7) k/uL Lymphocytes # (1.0-4.8) k/uL Monocytes # (0-1.0) k/uL ABG pH (7.35-7.45) ABG pCO2 (35-45) mmHg ABG pO2 (83-108) mmHg ABG HCO3 (21-25) mmol/L ABG Total CO2 (19-24) mmol/L ABG O2 Saturation (94-97) % Chloride (98-107) mmol/L Glucose (74-99) mg/dL POC Glucose (mg/dL) 116 H 133 H 143 H (75-99) mg/dL Plasma Lactic Acid Bob (0.7-2.0) mmol/L Calcium (8.4-10.2) mg/dL Total Protein (6.3-8.2) g/dL Albumin (3.5-5.0) g/dL Ur Specific [place] (1.001-1.035) Urine Protein (Negative) Urine Glucose (UA) (Negative) Urine Blood (Negative) Urine RBC (0-5) /hpf Urine WBC (0-5) /hpf Urine Mucus (None) /hpf Crossmatch 06/14/20 06/14/20 06/14/20 Range/Units 19:58 21:47 Unknown WBC 14.7 H (3.8-10.6) k/uL RBC 4.08 L (4.30-5.90) m/uL Hgb 11.7 L (13.0-17.5) gm/dL Hct 35.8 L (39.0-53.0) % RDW 15.9 H (11.5-15.5) % Plt Count 114 L (150-450) k/uL Neutrophils # 12.5 H (1.3-7.7) k/uL Lymphocytes # (1.0-4.8) k/uL Monocytes # 1.1 H (0-1.0) k/uL ABG pH 7.13 L* 7.22 L (7.35-7.45) ABG pCO2 82 H* 63 H (35-45) mmHg ABG pO2 70 L (83-108) mmHg ABG HCO3 27 H 26 H (21-25) mmol/L ABG Total CO2 30 H 28 H (19-24) mmol/L ABG O2 Saturation 89.8 L 98.1 H (94-97) % Chloride (98-107) mmol/L Glucose (74-99) mg/dL POC Glucose (mg/dL) (75-99) mg/dL Plasma Lactic Acid Bob (0.7-2.0) mmol/L Calcium (8.4-10.2) mg/dL Total Protein (6.3-8.2) g/dL Albumin (3.5-5.0) g/dL Ur Specific [place] (1.001-1.035) Urine Protein (Negative) Urine Glucose (UA) (Negative) Urine Blood (Negative) Urine RBC (0-5) /hpf Urine WBC (0-5) /hpf Urine Mucus (None) /hpf Crossmatch 06/14/20 06/15/20 06/15/20 Range/Units Unknown 03:45 03:45 WBC 15.2 H (3.8-10.6) k/uL RBC 3.66 L (4.30-5.90) m/uL Hgb 10.6 L (13.0-17.5) gm/dL Hct 32.5 L (39.0-53.0) % RDW 16.3 H (11.5-15.5) % Plt Count 112 L (150-450) k/uL Neutrophils # 13.3 H (1.3-7.7) k/uL Lymphocytes # 0.7 L (1.0-4.8) k/uL Monocytes # 1.1 H (0-1.0) k/uL ABG pH (7.35-7.45) ABG pCO2 (35-45) mmHg ABG pO2 (83-108) mmHg ABG HCO3 (21-25) mmol/L ABG Total CO2 (19-24) mmol/L ABG O2 Saturation (94-97) % Chloride 110 H 111 H (98-107) mmol/L Glucose 139 H 152 H (74-99) mg/dL POC Glucose (mg/dL) (75-99) mg/dL Plasma Lactic Acid Bob (0.7-2.0) mmol/L Calcium 7.2 L 7.3 L (8.4-10.2) mg/dL Total Protein 5.0 L (6.3-8.2) g/dL Albumin 2.8 L (3.5-5.0) g/dL Ur Specific [place] (1.001-1.035) Urine Protein (Negative) Urine Glucose (UA) (Negative) Urine Blood (Negative) Urine RBC (0-5) /hpf Urine WBC (0-5) /hpf Urine Mucus (None) /hpf Crossmatch 06/15/20 Range/Units 03:45 WBC (3.8-10.6) k/uL RBC (4.30-5.90) m/uL Hgb (13.0-17.5) gm/dL Hct (39.0-53.0) % RDW (11.5-15.5) % Plt Count (150-450) k/uL Neutrophils # (1.3-7.7) k/uL Lymphocytes # (1.0-4.8) k/uL Monocytes # (0-1.0) k/uL ABG pH (7.35-7.45) ABG pCO2 (35-45) mmHg ABG pO2 (83-108) mmHg ABG HCO3 (21-25) mmol/L ABG Total CO2 (19-24) mmol/L ABG O2 Saturation (94-97) % Chloride (98-107) mmol/L Glucose (74-99) mg/dL POC Glucose (mg/dL) (75-99) mg/dL Plasma Lactic Acid Bob (0.7-2.0) mmol/L Calcium (8.4-10.2) mg/dL Total Protein (6.3-8.2) g/dL Albumin (3.5-5.0) g/dL Ur Specific [place] >1.050 H (1.001-1.035) Urine Protein 1+ H (Negative) Urine Glucose (UA) (Negative) Urine Blood Moderate H (Negative) Urine RBC 53 H (0-5) /hpf Urine WBC 17 H (0-5) /hpf Urine Mucus Occasional H (None) /hpf Crossmatch Assessment and Plan Assessment: 1. Ruptured infrarenal abdominal aortic aneurysm 2. Postop day #1 for infrarenal aortic aneurysm repair with biiliac endograft 3. Chronic atrial fibrillation 4. Hypertension 5. Hyperlipidemia 6. Obstructive sleep apnea 7. Current smoker, extensive history of smoking 8. COPD Plan: Increase activity as tolerated. Discontinue Summers catheter. Consult to cardiology for patient's history of atrial fibrillation. Repeat CBC and BMP in the morning. Appreciate recommendations per ICU medical management. If patient remains stable will likely be able to be discharged home tomorrow. The impression and plan of care has been dictated as directed. Dr. Angel I performed a history and examination of this patient, discussed the same with the dictator. I agree with the dictator's note ,documented as a scribe. Any additional findings or plans will be noted.
--- NOTE | 2020-06-15 12:44 | P.CRDCN ---
History of Present Illness Consult date: 06/15/20 History of present illness: CHIEF COMPLAINT: Atrial fibrillation HISTORY OF PRESENT ILLNESS: This is a 79-year old male with a past medical history significant for atrial fibrillation, COPD, hypertension, hyperlipidemia, and GI bleed secondary to ulcers. Patient follows in the office with Dr. Oscar. We have been asked to see the patient in consultation for atrial fibrillation. Patient underwent infrarenal abdominal aortic aneurysm repair with aortobiiliac endograft. POD #1. Patient examined this morning at the bedside. He denies shortness of breath. Denies chest pain or pressure. Vital signs are stable. He remains in atrial fibrillation with heart rate in the low 100s. He has not been receiving his beta blockers since being in the hospital. Patient underwent cardiac catheterization with Dr. Oscar in November 2018 with stent placement to the OM2. According to cardiology office records, patient is not on anticoagulation because of history of GI bleeding and patient also refused anticoagulation. DIAGNOSTICS: EKG reveals atrial fibrillation with no signs of acute ischemia Chest xray: Increased density right medial lung base may reflect developing infiltrate or atelectasis. There is also mild increased density at the left medial lung base Laboratory data: WBC 15.2. Hemoglobin 10.6. Platelet count 112. Sodium 140. Potassium 5.1. BUN 20. Creatinine 1.21. Lactic acid 1.1. Current home cardiac medications include aspirin 325 mg daily and atenolol 25 mg twice a day REVIEW OF SYSTEMS: At the time of my exam: CONSTITUTIONAL: Denies fever or chills. HEENT: Denies blurred vision, vision changes, or eye pain. Denies hemoptysis CARDIOVASCULAR: Denies chest pain, orthopnea, PND or palpitations RESPIRATORY: No shortness of breath. GASTROINTESTINAL: Denies abdominal pain. Denies nausea or vomiting. HEMATOLOGIC: Denies bleeding disorders. GENITOURINARY: Denies any blood in urine. SKIN: Denies pruitis. Denies rash. PHYSICAL EXAM: VITAL SIGNS: Reviewed. GENERAL: Well-developed in no acute distress. HEENT: Head is normocephalic. Pupils are equal, round. Sclerae anicteric. Mucous membranes of the mouth are moist. Neck supple. No JVD or thyromegaly LUNGS: Respirations even and unlabored. Lungs essentially clear to auscultation bilaterally. HEART: Irregular rate and rhythm. S1 and S2 heard. ABDOMEN: Soft. Nondistended. Nontender. Groin sites clean dry intact EXTREMITIES: Normal range of motion. No clubbing or cyanosis. Peripheral pulses intact. No lower extremity edema NEUROLOGIC: Awake and alert. Oriented x 3. ASSESSMENT: Infrarenal abdominal aortic aneurysm repair with aortobiiliac endograft Chronic persistent atrial fibrillation, not on long-term anticoagulation secondary to history of GI bleeding Coronary artery disease with previous PCI to OM 2 Hyperlipidemia Nicotine dependence Chronic back pain PLAN: Resume atenolol. Monitor heart rate No anticoagulation secondary to history of GI bleeding Continue to hold aspirin therapy Patient was taking Lipitor 80mg daily according to last office note. Will resume Lipitor. Obtain 2D echo to assess cardiac structure and function Further recommendations pending patient course Nurse practitioner note has been reviewed by physician. Signing provider agrees with the documented findings, assessment, and plan of care. Past Medical History Past Medical History: Atrial Fibrillation, Cancer, COPD, Hyperlipidemia, Hypertension, Osteoarthritis (OA), Prostate Disorder, Renal Disease, Skin Disorder, Sleep Apnea/CPAP/BIPAP Additional Past Medical History / Comment(s): 1960s had bleeding stomach ulcer with surgery, acute renal failure 11/2017, elevated PSA, gout bilateral ankles and toes both feet, chronic back pain, psoriasis, skin cancer with removals. No CPAP use. History of Any Multi-Drug Resistant Organisms: None Reported Past Surgical History: Appendectomy, Back Surgery, Joint Replacement Additional Past Surgical History / Comment(s): Total left hip arthroplasty, gastric surgery for bleeding ulcer, 4 back surgeries, skin cancer removals. Past Anesthesia/Blood Transfusion Reactions: Previous Problems w/ Anesthesia Additional Past Anesthesia/Blood Transfusion Reaction / Comment(s): "Prefers not to have Ativan."; extended recovery from anesthesia Past Psychological History: No Psychological Hx Reported Additional Psychological History / Comment(s): . Smoking Status: Current every day smoker Past Alcohol Use History: None Reported Additional Past Alcohol Use History / Comment(s): . Past Drug Use History: None Reported - Past Family History Mother Family Medical History: Cancer, Skin Disorder Additional Family Medical History / Comment(s): Psoriasis, unknown to pt type of cancer. Father Family Medical History: No Reported History Additional Family Medical History / Comment(s): Father was healthy. Brother(s) Family Medical History: Cancer Additional Family Medical History / Comment(s): COLON CANCER. Medications and Allergies Home Medications Medication Instructions Recorded Confirmed Type Tamsulosin HCl [Flomax] 0.4 mg PO DAILY 01/03/18 06/14/20 History allopurinoL [Zyloprim] 300 mg PO DAILY 01/03/18 06/14/20 History atenoloL [Atenolol] 25 mg PO BID 01/03/18 06/14/20 History Aspirin 325 mg PO DAILY #90 tab 11/27/18 06/14/20 Rx Allergies Allergy/AdvReac Type Severity Reaction Status Date / Time No Known Allergies Allergy Verified 06/14/20 10:45 Physical Exam Vitals: Vital Signs Temp Pulse Pulse Pulse Resp BP BP 06/15/20 12:00 98.6 F 122 H 22 126/71 06/15/20 11:00 107 H 19 123/74 06/15/20 10:00 93 41 H 123/71 06/15/20 09:00 103 H 16 126/81 06/15/20 08:00 111 H 18 115/77 06/15/20 07:45 110 H 12 126/68 06/15/20 07:35 16 06/15/20 07:30 124 H 22 111/74 06/15/20 07:15 96 15 123/71 06/15/20 07:00 122 H 16 106/81 06/15/20 06:45 114 H 17 100/63 06/15/20 06:30 112 H 16 96/70 06/15/20 06:15 115 H 14 115/69 06/15/20 06:00 99 15 88/76 06/15/20 05:45 109 H 17 114/81 06/15/20 05:30 128 H 17 109/67 06/15/20 05:15 113 H 15 86/56 06/15/20 05:00 115 H 18 115/65 06/15/20 04:45 124 H 17 116/69 06/15/20 04:30 111 H 17 126/69 06/15/20 04:15 114 H 14 103/75 06/15/20 04:00 98.3 F 112 H 105 H 14 109/67 06/15/20 03:45 101 H 15 106/62 06/15/20 03:30 104 H 16 117/70 06/15/20 03:15 109 H 15 127/73 06/15/20 03:00 137 H 14 109/64 06/15/20 02:45 113 H 16 102/66 06/15/20 02:30 134 H 15 101/87 06/15/20 02:15 129 H 17 116/68 06/15/20 02:00 114 H 16 112/82 06/15/20 01:45 117 H 14 110/62 06/15/20 01:30 123 H 13 109/64 06/15/20 01:15 109 H 18 111/96 06/15/20 01:00 128 H 13 113/70 06/15/20 00:45 118 H 15 92/63 06/15/20 00:30 120 H 15 122/91 06/15/20 00:15 124 H 13 117/80 06/15/20 00:00 97.8 F 104 H 13 129/75 06/14/20 23:45 115 H 12 126/64 06/14/20 23:36 113 H 20 06/14/20 23:30 101 H 13 132/80 06/14/20 23:15 98 10 L 114/79 06/14/20 23:00 101 H 12 120/81 06/14/20 22:45 107 H 13 97/60 06/14/20 22:30 105 H 18 112/67 06/14/20 22:15 103 H 26 H 99/63 06/14/20 22:00 125 H 20 106/67 06/14/20 21:45 112 H 14 106/70 06/14/20 21:30 110 H 113 H 15 120/69 06/14/20 21:15 112 H 12 118/75 06/14/20 21:00 104 H 11 L 130/100 06/14/20 20:45 101 H 106 H 12 124/66 06/14/20 20:30 109 H 112 H 12 120/69 06/14/20 20:15 98 24 115/61 06/14/20 20:00 105 H 21 106/65 06/14/20 19:45 97.9 F 94 20 117/75 06/14/20 19:00 110 H 16 06/14/20 18:45 113 H 16 06/14/20 18:15 114 H 16 06/14/20 18:00 98 16 143/78 06/14/20 17:45 101 H 16 189/99 06/14/20 17:29 97.7 F 111 H 16 131/89 BP BP Pulse Ox 06/15/20 12:00 95 06/15/20 11:00 88 L 06/15/20 10:00 94 L 06/15/20 09:00 95 06/15/20 08:00 91 L 06/15/20 07:45 93 L 06/15/20 07:35 06/15/20 07:30 96 06/15/20 07:15 93 L 06/15/20 07:00 96 06/15/20 06:45 97 06/15/20 06:30 94 L 06/15/20 06:15 95 06/15/20 06:00 94 L 06/15/20 05:45 97 06/15/20 05:30 96 06/15/20 05:15 92 L 06/15/20 05:00 93 L 06/15/20 04:45 93 L 06/15/20 04:30 95 06/15/20 04:15 94 L 06/15/20 04:00 93 L 06/15/20 03:45 93 L 06/15/20 03:30 93 L 06/15/20 03:15 92 L 06/15/20 03:00 92 L 06/15/20 02:45 93 L 06/15/20 02:30 95 06/15/20 02:15 95 06/15/20 02:00 97 06/15/20 01:45 94 L 06/15/20 01:30 94 L 06/15/20 01:15 95 06/15/20 01:00 93 L 06/15/20 00:45 93 L 06/15/20 00:30 96 06/15/20 00:15 94 L 06/15/20 00:00 95 06/14/20 23:45 93 L 06/14/20 23:36 06/14/20 23:30 91 L 06/14/20 23:15 06/14/20 23:00 92 L 06/14/20 22:45 89 L 06/14/20 22:30 97 06/14/20 22:15 96 06/14/20 22:00 97 06/14/20 21:45 97 06/14/20 21:30 96 06/14/20 21:15 88 L 06/14/20 21:00 88 L 06/14/20 20:45 94 L 06/14/20 20:30 93 L 06/14/20 20:15 90 L 06/14/20 20:00 94 L 06/14/20 19:45 91 L 06/14/20 19:00 153/70 187/57 99 06/14/20 18:45 150/67 171/56 99 06/14/20 18:15 155/79 96 06/14/20 18:00 181/61 96 06/14/20 17:45 195/93 96 06/14/20 17:29 97 Intake and Output 06/14/20 06/15/20 06/15/20 22:59 06:59 14:59 Intake Total 1420 1175 800 Output Total 200 283 310 Balance 1220 892 490 Intake: IV 800 1175 550 Sodium Chloride 0.9% 1, 250 1125 500 000 ml @ 125 mls/hr IV . Q8H [facility] Rx#:[id number] ceFAZolin 1,000 mg In 50 50 Sodium Chloride 0.9% 50 ml @ 100 mls/hr IVPB Q8HR [facility] Rx#:[id number] Oral 250 Blood Product 620 Rc As-1 Unit 310 [id number] Rc As-1 Unit 310 [id number] Output: Urine 200 283 310 Other: Voiding Method Indwelling Catheter Indwelling Catheter Indwelling Catheter Weight 88.451 kg 97.6 kg ABP, PAP, CO, CI - Last 8 Hours Arterial Blood Pressure 132/67 Arterial Blood Pressure 137/50 Arterial Blood Pressure 105/43 Arterial Blood Pressure 129/52 Arterial Blood Pressure 122/51 Arterial Blood Pressure 123/57 Arterial Blood Pressure 114/57 Arterial Blood Pressure 127/60 Arterial Blood Pressure 112/57 Arterial Blood Pressure 109/56 Arterial Blood Pressure 115/56 Arterial Blood Pressure 131/60 Arterial Blood Pressure 116/59 Arterial Blood Pressure 112/56 Arterial Blood Pressure 100/57 Arterial Blood Pressure 115/54 Arterial Blood Pressure 98/51 Arterial Blood Pressure 92/56 Arterial Blood Pressure 124/62 Results 06/15/20 03:45 06/15/20 03:45 Cardiac Enzymes 06/14/20 Range/Units Unknown AST 18 (17-59) U/L Coagulation 06/14/20 Range/Units 11:56 PT 11.6 (9.0-12.0) sec CBC 06/14/20 06/14/20 06/15/20 Range/Units 14:10 Unknown 03:45 WBC 21.1 H 14.7 H 15.2 H (3.8-10.6) k/uL RBC 3.59 L 4.08 L 3.66 L (4.30-5.90) m/uL Hgb 10.2 L D 11.7 L 10.6 L (13.0-17.5) gm/dL Hct 31.5 L 35.8 L 32.5 L (39.0-53.0) % Plt Count 172 114 L 112 L (150-450) k/uL Comprehensive Metabolic Panel 06/14/20 06/15/20 Range/Units Unknown 03:45 Sodium 142 140 (137-145) mmol/L Potassium 4.5 5.1 (3.5-5.1) mmol/L Chloride 110 H 111 H (98-107) mmol/L Carbon Dioxide 27 26 (22-30) mmol/L BUN 16 20 (9-20) mg/dL Creatinine 0.91 1.21 (0.66-1.25) mg/dL Glucose 139 H 152 H (74-99) mg/dL Calcium 7.2 L 7.3 L (8.4-10.2) mg/dL AST 18 (17-59) U/L ALT 9 (4-49) U/L Alkaline Phosphatase 57 (38-126) U/L Total Protein 5.0 L (6.3-8.2) g/dL Albumin 2.8 L (3.5-5.0) g/dL Current Medications Generic Name Dose Route Start Last Admin Trade Name Freq PRN Reason Stop Dose Admin Allopurinol 300 mg 06/15/20 10:30 06/15/20 11:24 Allopurinol 300 Mg Tab PO 300 mg DAILY [facility] Administration Atenolol 25 mg 06/15/20 09:00 06/15/20 09:52 Atenolol 25 Mg Tab PO 25 mg BID [facility] Administration Sodium Chloride 1,000 mls @ 125 mls/hr 06/14/20 17:45 06/15/20 00:33 Saline 0.9% IV 125 mls/hr .Q8H [facility] Administration Cefazolin Sodium 1,000 mg/ 50 mls @ 100 mls/hr 06/15/20 00:00 06/15/20 08:24 Sodium Chloride IVPB 100 mls/hr Q8HR [facility] Administration Clevidipine 25 mg/ IV Solution 50 mls @ 2 mls/hr 06/14/20 21:15 06/15/20 00:08 IV Not Given .Q24H [facility] Protocol 1 MG/HR Naloxone HCl 0.2 mg 06/14/20 11:16 Naloxone 0.4 Mg/Ml 1 Ml Vial IV Q2M PRN Opioid Reversal Pantoprazole Sodium 40 mg 06/16/20 07:30 Pantoprazole 40 Mg Tablet PO AC-BRKFST [facility] Tamsulosin HCl 0.4 mg 06/15/20 10:30 06/15/20 11:24 Tamsulosin 0.4 Mg Cap.Er.24h PO 0.4 mg DAILY [facility] Administration Intake and Output 06/14/20 06/15/20 06/15/20 22:59 06:59 14:59 Intake Total 1420 1175 800 Output Total 200 283 310 Balance 1220 892 490 Intake: IV 800 1175 550 Sodium Chloride 0.9% 1, 250 1125 500 000 ml @ 125 mls/hr IV . Q8H [facility] Rx#:[id number] ceFAZolin 1,000 mg In 50 50 Sodium Chloride 0.9% 50 ml @ 100 mls/hr IVPB Q8HR [facility] Rx#:[id number] Oral 250 Blood Product 620 Rc As-1 Unit 310 [id number] Rc As-1 Unit 310 [id number] Output: Urine 200 283 310 Other: Voiding Method Indwelling Catheter Indwelling Catheter Indwelling Catheter Weight 88.451 kg 97.6 kg 06/15/20 03:45 06/15/20 03:45
--- NOTE | 2020-06-15 14:38 | ECHOF ---
Referral Reason:LV function MEASUREMENTS -------- HEIGHT: 182.9 cm WEIGHT: 97.5 kg BP: 92/44 IVSd: 2.1 cm (0.6 - 1.1) LVIDd: 4.1 cm (3.9 - 5.3) LVPWd: 2.4 cm (0.6 - 1.1) IVSs: 2.9 cm LVIDs: 2.1 cm LVPWs: 2.6 cm RVIDd: 3.2 cm (< 3.3) LAESV Index (A-L): 52.49 ml/m Ao Diam: 3.1 cm (2.0 - 3.7) AV Cusp: 1.4 cm (1.5 - 2.6) EPSS: 1.4 cm AV maxP.24 mmHg AV meanP.02 mmHg RAP: 20.00 mmHg RVSP: 58.41 mmHg MV EF SLOPE: 44.19 mm/s (70 - 150) MV EXCURSION: 14.92 mm (> 18.000) FINDINGS -------- This was a technically adequate study. The left ventricular size is normal. There is severe concentric left ventricular hypertrophy. Ove rall left ventricular systolic function is low-normal with, an EF between 50 - 55 %. Increased Lap Grade II Diastolic Dysfunction. The right ventricle is normal in size. LA is severely dilated >40 ml/m2 The right atrium is moderately enlarged. Interatrial and interventricular septum intact. There is no evidence of aortic regurgitation. There is mild aortic stenosis present. Peak/mean gr adient across the Aortic Valve is 23.24mmHg / 14.02mmHg. Moderate mitral regurgitation is present. Moderate to severe tricuspid regurgitation present. There is moderate to severe pulmonary hypertens ion. The right ventricular systolic pressure, as measured by Doppler, is 58.41mmHg. There is no pulmonic regurgitation present. The aortic root size is normal. The inferior vena cava is dilated with no significant inspiratory collapse which is consistent estima chilo right atrial pressure of >20 mmHg. There is a trivial pericardial effusion present. CONCLUSIONS -------- 1. The left ventricular size is normal. 2. There is severe concentric left ventricular hypertrophy. 3. Overall left ventricular systolic function is low-normal with, an EF between 50 - 55 %. 4. Increased Lap Grade II Diastolic Dysfunction. 5. LA is severely dilated >40 ml/m2 6. The right atrium is moderately enlarged. 7. There is mild aortic stenosis present. 8. Peak/mean gradient across the Aortic Valve is 23.24mmHg / 14.02mmHg. 9. Moderate mitral regurgitation is present. 10. Moderate to severe tricuspid regurgitation present. 11. There is moderate to severe pulmonary hypertension. 12. The right ventricular systolic pressure, as measured by Doppler, is 58.41mmHg. 13. There is a trivial pericardial effusion present. DIRECTOR OF STUDENT SERVICES: Annemarie Veliz RDCS
[2020-06-15] MEDS: ATORVASTATIN 80 MG TAB PO SCH (21:06)
[2020-06-16 04:24] LABS: Anisocytosis Slight; Basophils % (A) 0 %; Eosinophils % (A) 0 %; HCT 28.3 % (39.0-53.0); Hypochromasia Marked; Lymphocytes # (A) 0.6 k/uL (1.0-4.8); Lymphocytes % (A) 4 %; MCH 28.9 pg (25.0-35.0); MCV 90.5 fL (80.0-100.0); Mean Platelet Volume 8.3; Monocytes % (A) 8 %; Neutrophils # (A) 11.9 k/uL (1.3-7.7); Platelet Count 108 k/uL (150-450); RBC 3.12 m/uL (4.30-5.90); RDW 16.3 % (11.5-15.5); WBC 13.7 k/uL (3.8-10.6)
[2020-06-16 04:44] LABS: Potassium 4.4 mmol/L (3.5-5.1)
[2020-06-16] MEDS: atenoloL 25 MG TAB PO SCH ×2 (07:59→20:30)
[2020-06-16] MEDS: allopurinoL 300 MG TAB PO SCH (07:59)
[2020-06-16] MEDS: PANTOPRAZOLE 40 MG TABLET PO SCH (07:59)
[2020-06-16] MEDS: TAMSULOSIN 0.4 MG CAP.ER.24H PO SCH (07:59)
--- NOTE | 2020-06-16 11:01 | P.PN ---
Subjective Progress Note Date: 06/16/20 Principal diagnosis: Severe back pain, ruptured infrarenal AAA This is a 79-year-old white male patient who follows with the [facility] clinic, and has a past medical history of chronic A. fib, COPD, not oxygen dependent at baseline, hypertension, [id number] smoker, still smoking, hyperlipidemia, chronic kidney disease, sleep apnea not on CPAP, osteoarthritis, history of GI bleeding related to peptic ulcers, who came into the hospital on 06/14/2020 through the emergency department for evaluation of right-sided abdominal pain that was a sharp and severe mostly on the right side of the abdomen with some radiation to the right side. Evaluation with CT of the abdomen and pelvis revealed abdominal aortic aneurysm measuring roughly 9 cm in length with retroperitoneal hemorrhage suggesting weak and suspected impending rupture, urgent vascular surgical referral was placed, and patient underwent placement of aortobiiliac endograft, and bare-metal expandable stent placed in the left external iliac artery by Dr. Hummel and Dr. Summers. Patient was transferred to the intensive care unit after observation in the recovery, he did extubate in the recovery, arrived in the intensive care unit later in the evening, slightly hypertensive, and drowsy, and his blood gases did reveal acute hypercapnic respiratory failure, with pO2 of 70, pCO2 of 82, and pH of 7.13, this was done on 44% FiO2, patient subsequently placed on BiPAP support, his subsequent blood gases showed improvement in the ventilation and oxygenation, patient was removed from BiPAP support as he became more more alert, and he is currently on 2 L of oxygen, with pulse ox of 94-95%, hemodynamically he stable, he never required Cleviprex last night, blood pressure is 129/52, he is in atrial fibrillation wi th a controlled rate, he is been afebrile. He denies any shortness of breath, no cough or congestion, we'll provide him with incentive spirometer, he is on cefazolin following his surgery, his bilateral groin incisions are clean dry and intact, his distal pulses are palpable. On 06/16/2020 patient seen in follow-up in the intensive care unit, this is postoperative day number 2, status post aortobiiliac endograft with stenting of the left external iliac artery. Patient apparently has been very restless through the night, still remains a bit drowsy however more awake on today's exam, more responsive, he is responding properly, he is oriented 3, however he is been very impulsive according to the nursing staff, he gets up unassisted, and frequently Using the urinal. Summers catheter has been discontinued, currently on 5 L of oxygen her pulse ox of 95-96%, lung sounds reveal diffuse crackles. His been afebrile, he has not been working on his incentive spirometer very well, although at times she is able to achieve 1.5 L according to the nursing staff. Bilateral groin incisions are clean dry and intact, hemodynamically he stable, he is just some point and was seen at rate of 125 ML per hour which was discontinued, he is tolerating oral intake. Today's labs have been reviewed, showing white blood cell, 13.7, hemoglobin of 9.0, sodium is 139, potassium is 4.4, chloride is 111, CO2 23, BUN of 24 creatinine is 1.23. His urinalysis revealed possibility of urinary tract infection, his urine culture is pending at this time, remains on IV cefazolin per vascular surgery. Objective - Vital Signs Vital signs: Vital Signs Temp 98.2 F 06/16/20 08:00 Pulse 86 06/16/20 09:00 Resp 26 H 06/16/20 09:00 BP 104/80 06/16/20 09:00 Pulse Ox 96 06/16/20 09:00 Intake & Output 06/15/20 06/16/20 06/16/20 18:59 06:59 18:59 Intake Total 1600 1500 425 Output Total 465 500 200 Balance 1135 1000 225 Weight 99.2 kg Intake: IV 1350 1500 425 Sodium Chloride 0.9% 1, 1250 1500 375 000 ml @ 125 mls/hr IV . Q8H [facility] Rx#:[id number] ceFAZolin 1,000 mg In 100 50 Sodium Chloride 0.9% 50 ml @ 100 mls/hr IVPB Q8HR [facility] Rx#:[id number] Oral 250 Output: Urine 465 500 200 Other: Voiding Method Indwelling Catheter Urinal Urinal # Voids 0 1 ABP, PAP, CO, CI - Last Documented Arterial Blood Pressure 107/48 - Exam GENERAL EXAM: Drowsy but arousable, 79-year-old white male, a 5 L of oxygen with pulse ox of 96%, comfortable in no apparent distress. HEAD: Normocephalic/atraumatic. EYES: Normal reaction of pupils, equal size. Conjunctiva pink, sclera white. NOSE: Clear with pink turbinates. THROAT: No erythema or exudates. NECK: No masses, no JVD, no thyroid enlargement, no adenopathy. CHEST: No chest wall deformity. Symmetrical expansion. LUNGS: Equal air entry with no crackles, wheeze, rhonchi or dullness. CVS: Regular rate and rhythm, normal S1 and S2, no gallops, no murmurs, no rubs ABDOMEN: Soft, nontender, obese. No hepatosplenomegaly, normal bowel sounds, no guarding or rigidity. EXTREMITIES: No clubbing, no edema, no cyanosis, 2+ pulses and upper and lower extremities. Bilateral groin incisions covered with surgical dressings, clean dry and intact, MUSCULOSKELETAL: Muscle strength and tone normal. SPINE: No scoliosis or deformity SKIN: No rashes CENTRAL NERVOUS SYSTEM: Drowsy and oriented -3. No focal deficits, tone is normal in all 4 extremities. PSYCHIATRIC: Drowsy and oriented -3. Appropriate affect. Intact judgment and insight. - Labs CBC & Chem 7: 06/16/20 03:13 06/16/20 03:13 Labs: Abnormal Lab Results - Last 24 Hours (Table) 06/16/20 06/16/20 Range/Units 03:13 03:13 WBC 13.7 H (3.8-10.6) k/uL RBC 3.12 L (4.30-5.90) m/uL Hgb 9.0 L D (13.0-17.5) gm/dL Hct 28.3 L (39.0-53.0) % RDW 16.3 H (11.5-15.5) % Plt Count 108 L (150-450) k/uL Neutrophils # 11.9 H (1.3-7.7) k/uL Lymphocytes # 0.6 L (1.0-4.8) k/uL Chloride 111 H (98-107) mmol/L BUN 24 H (9-20) mg/dL Glucose 140 H (74-99) mg/dL Calcium 8.0 L (8.4-10.2) mg/dL Microbiology - Last 24 Hours (Table) 06/15/20 03:45 Urine Culture - Preliminary Urine,Catheterized Assessment and Plan Plan: Assessment: #1. Acute hypoxic respiratory failure related to hypoventilation, and atelectasis #2. Acute ruptured infrarenal abdominal aortic aneurysm, patient presented with right-sided abdominal pain, patient's status post urgent aortobiliac endograft, and stent placement to the left external iliac artery, postoperative day #2 #3. Acute hypercapnic respiratory failure related to hypoventilation and atelectasis, requiring BiPAP support, improved, patient is currently on nasal cannula #4. Extensive history of smoking, patient carries greater than [id number] smoking history, still smoking one to 2 packs per day #5. Hypertension #6. Hyperlipidemia #7. COPD not oxygen dependent at baseline #8. BPH #9. Chronic back pain #10. Psoriasis #11. Obstructive sleep apnea not on CPAP therapy Plan: We'll obtain chest x-ray, DC the IV fluids, wean FiO2, aggressive pulmonary toileting is needed, encourage patient to work on his incentive spirometer, sit up in a chair, and teen safety precautions, fall precautions. Hemodynamically stable, today's labs have been reviewed. Wean FiO2. Continue breathing treatments. Chest x-ray has been reviewed, showing possibility retrocardiac opacity, and bibasilar atelectasis, will continue with current antibiotics, lisinopril calcitonin level, patient needs aggressive pulmonary toileting. Continue closely monitoring the intensive care unit. I performed a history & physical examination of the patient and discussed their management with my nurse practitioner, Mariana Mott. I reviewed the nurse practitioner's note and agree with the documented findings and plan of care. Lung sounds are positive for diminished breath sounds. The findings and the impression was discussed with the patient. I attest to the documentation by the nurse practitioner. Time with Patient: Greater than 30
--- NOTE | 2020-06-16 11:05 | XR ---
EXAMINATION TYPE: XR chest 1V DATE OF EXAM: 06/16/2020 COMPARISON: 06/15/2020 HISTORY: 79-year-old male O2 use TECHNIQUE: Single frontal view of the chest is obtained. FINDINGS: Heart mildly enlarged. Interstitial opacities persist along with small effusions. IMPRESSION: Continued mild cardiomegaly, interstitial densities, and trace effusions. Correlate for mild CHF.
--- NOTE | 2020-06-16 11:56 | P.PN ---
Subjective Progress Note Date: 06/16/20 HISTORY OF PRESENT ILLNESS: Patient is s/p infrarenal abdominal aortic aneurysm repair with aortobiiliac endograft. POD #2. Patient examined this morning at the bedside in the ICU. He denies shortness of breath. Denies chest pain or pressure. Vital signs are stable. He remains in atrial fibrillation with heart rate in the low 100s. Blood pressure stable. Echocardiogram completed yesterday reveals ejection fraction between 50 and 55%, mild aortic stenosis, moderate mitral regurgitation, moderate to severe tricuspid regurgitation, and moderate to severe pulmonary hypertension. PHYSICAL EXAM: VITAL SIGNS: Reviewed. GENERAL: Well-developed in no acute distress. HEENT: Head is normocephalic. Pupils are equal, round. Sclerae anicteric. Mucous membranes of the mouth are moist. Neck supple. No JVD or thyromegaly LUNGS: Respirations even and unlabored. Lungs essentially clear to auscultation bilaterally. HEART: Irregular rate and rhythm. S1 and S2 heard. ABDOMEN: Soft. Nondistended. Nontender. Groin sites clean dry intact EXTREMITIES: Normal range of motion. No clubbing or cyanosis. Peripheral pulses intact. No lower extremity edema NEUROLOGIC: Awake and alert. Oriented x 3. ASSESSMENT: Infrarenal abdominal aortic aneurysm repair with aortobiiliac endograft Chronic persistent atrial fibrillation, not on long-term anticoagulation secondary to history of GI bleeding Coronary artery disease with previous PCI to OM 2 Hyperlipidemia Nicotine dependence Chronic back pain PLAN: Continue current dose of Atenolol Continue telemetry monitoring No anticoagulation secondary to history of GI bleeding Continue to hold aspirin therapy. Resume when okay with vascular surgery. Further recommendations pending patient course Nurse practitioner note has been reviewed by physician. Signing provider agrees with the documented findings, assessment, and plan of care. Objective - Vital Signs Vital signs: Vital Signs Temp 98.2 F 06/16/20 08:00 Pulse 86 06/16/20 09:00 Resp 26 H 06/16/20 09:00 BP 104/80 06/16/20 09:00 Pulse Ox 96 06/16/20 09:00 Intake & Output 06/15/20 06/16/20 06/16/20 18:59 06:59 18:59 Intake Total 1600 1500 425 Output Total 465 500 200 Balance 1135 1000 225 Weight 99.2 kg Intake: IV 1350 1500 425 Sodium Chloride 0.9% 1, 1250 1500 375 000 ml @ 125 mls/hr IV . Q8H [facility] Rx#:[id number] ceFAZolin 1,000 mg In 100 50 Sodium Chloride 0.9% 50 ml @ 100 mls/hr IVPB Q8HR [facility] Rx#:[id number] Oral 250 Output: Urine 465 500 200 Other: Voiding Method Indwelling Catheter Urinal Urinal # Voids 0 1 ABP, PAP, CO, CI - Last Documented Arterial Blood Pressure 107/48 - Labs CBC & Chem 7: 06/16/20 03:13 06/16/20 03:13 Labs: Abnormal Lab Results - Last 24 Hours (Table) 06/16/20 06/16/20 Range/Units 03:13 03:13 WBC 13.7 H (3.8-10.6) k/uL RBC 3.12 L (4.30-5.90) m/uL Hgb 9.0 L D (13.0-17.5) gm/dL Hct 28.3 L (39.0-53.0) % RDW 16.3 H (11.5-15.5) % Plt Count 108 L (150-450) k/uL Neutrophils # 11.9 H (1.3-7.7) k/uL Lymphocytes # 0.6 L (1.0-4.8) k/uL Chloride 111 H (98-107) mmol/L BUN 24 H (9-20) mg/dL Glucose 140 H (74-99) mg/dL Calcium 8.0 L (8.4-10.2) mg/dL Microbiology - Last 24 Hours (Table) 06/15/20 03:45 Urine Culture - Final Urine,Catheterized
--- NOTE | 2020-06-16 13:29 | P.DS ---
Providers Date of admission: 06/14/20 11:20 Attending physician: Lm Vargas DO Consults: 06/14/20 10:38 Consult Physician Stat Consulting Provider: Lm Vargas Consult Reason/Comments: vascular consult from ED-[facility] Do you want consulting provider notified?: Already Contacted 06/14/20 17:51 Consult Physician Urgent Consulting Provider: Edson Rich Consult Reason/Comments: ICu management Do you want consulting provider notified?: Yes 06/15/20 08:27 Consult Physician Urgent Consulting Provider: Sunil Oscar Consult Reason/Comments: afib Do you want consulting provider notified?: Already Contacted Primary care physician: [facility] [place] Course: A 79-year-old male patient who came into the emergency department 2 days ago with complaints of severe back pain and was noted to have been ruptured abdominal aortic aneurysm. Is postop day #2 for infrarenal abdominal aortic aneurysm repair with aortobiiliac endograft. His past medical history does include chronic atrial fibrillation, COPD, hypertension, hyperlipidemia, current smoker, chronic kidney disease and obstructive sleep apnea. Etiologies on consult and ordered an echocardiogram which showed severe concentric left ventricular hypertrophy, left ventricular systolic function is low-normal with an EF of 50-55% there is increased left great to diastolic dysfunction. LAD is severely dilated, right atrium is moderately enlarged, there is mild aortic stenosis present, moderate mitral regurgitation, moderate to severe tricuspid regurgitation, moderate to severe pulmonary hypertension, and trivial pericardial effusion present. ICU intensivists continue to follow patient medically and recommend continued close monitoring in the intensive care unit. The patient is denying any shortness of breath, chest pain, or abdominal pain. The is wanting to go home and has expressed his desire to be discharged home. However during the evening he is desaturating into the 80s and requiring BiPAP. Assessment: General appearance: The patient is alert, oriented, in no acute distress. HET: Head is normocephalic and atraumatic. Pupils are equal and reactive. Oropharynx is clear without lesions. Neck: Supple without lymphadenopathy. Trachea midline. Heart: S1 S2. Regular rate and rhythm. Lungs: No crackles or wheezes are heard. Abdomen: Soft, nontender, nondistended with bowel sounds. Groin: Bilateral groin incisions clean dry and intact. Left groin with sutures, no active bleeding or drainage noted. Extremities: Normal skin color and turgor. Bilateral dorsalis pedis Doppler signals. Able to move bilateral lower extremities. Neurological: No focal deficits. Strength and sensation are grossly intact. Assessment: 1. Ruptured infrarenal abdominal aortic aneurysm 2. Postop day #2 for infrarenal aortic aneurysm repair with biiliac endograft 3. Chronic atrial fibrillation 4. Hypertension 5. Hyperlipidemia next line 6. Obstructive sleep apnea 7. Current smoker extensive history of smoking 8. COPD Plan: Consult physical therapy to increase activity as tolerated Appreciate recommendations from cardiology Appreciate recommendations from ICU intensivists Pulmonology to evaluate need for home CPAP machine Recommend close monitoring and hold discharge at this time. The impression and plan of care has been dictated as directed. Dr. Summers I performed a history and examination of this patient, discussed the same with the dictator. I agree with the dictator's note ,documented as a scribe. Any additional findings or plans will be noted. Procedures: Infrarenal abdominal aortic aneurysm repair with aortobiiliac endograft Patient Condition at Discharge: Fair Plan - Discharge Summary Discharge Rx Participant: No New Discharge Prescriptions: No Action Tamsulosin HCl [Flomax] 0.4 mg PO DAILY allopurinoL [Zyloprim] 300 mg PO DAILY atenoloL [Atenolol] 25 mg PO BID Aspirin 325 mg PO DAILY #90 tab Discharge Medication List Tamsulosin HCl [Flomax] 0.4 mg PO DAILY 01/03/18 [History] allopurinoL [Zyloprim] 300 mg PO DAILY 01/03/18 [History] atenoloL [Atenolol] 25 mg PO BID 01/03/18 [History] Aspirin 325 mg PO DAILY #90 tab 11/27/18 [Rx] Follow up Appointment(s)/Referral(s): [facility],Clinic [Primary Care Provider] - 1-2 days Lm Vargas DO [Doctor of Osteopathic Medicine] - 1 Week Activity/Diet/Wound Care/Special Instructions: No lifting greater than 5 pounds, no strenuous activity. No driving for at least 2 weeks. A shower but needs to keep bilateral groin sites clean and dry.
[2020-06-16] MEDS: CLEVIDIPINE BUTYRATE 25 MG in EMPTY BAG 1 BAG IV SCH (19:44)
[2020-06-16] MEDS: ATORVASTATIN 80 MG TAB PO SCH (20:30)
[2020-06-16] MEDS: SODIUM CHLORIDE 0.9% 1,000 ML IV SCH ×2 (20:42→20:54)
[2020-06-17 06:09] VITALS: RESP 20
[2020-06-17] MEDS: allopurinoL 300 MG TAB PO SCH (09:10)
[2020-06-17] MEDS: PANTOPRAZOLE 40 MG TABLET PO SCH (09:11)
[2020-06-17] MEDS: TAMSULOSIN 0.4 MG CAP.ER.24H PO SCH (09:11)
[2020-06-17] MEDS: atenoloL 25 MG TAB PO SCH (09:11)
--- NOTE | 2020-06-17 11:01 | P.PN ---
Progress Note - Text Progress Note Date: 06/17/20 Pt s/e. No complaints, doing well. No issues. No pain. No CP/SOB, decreased appetite. okay to go home from my [facility], if okay with consultants. Eval for possible home o2 with ambulation. follow up with Dr Vargas in 2 weeks
[2020-06-17 11:59] VITALS: BP 104/57; PULSE 94; TEMP 98.1
--- NOTE | 2020-06-17 14:55 | P.PN ---
Subjective Progress Note Date: 06/17/20 Principal diagnosis: Severe back pain, ruptured infrarenal AAA This is a 79-year-old white male patient who follows with the [facility] clinic, and has a past medical history of chronic A. fib, COPD, not oxygen dependent at baseline, hypertension, [id number] smoker, still smoking, hyperlipidemia, chronic kidney disease, sleep apnea not on CPAP, osteoarthritis, history of GI bleeding related to peptic ulcers, who came into the hospital on 06/14/2020 through the emergency department for evaluation of right-sided abdominal pain that was a sharp and severe mostly on the right side of the abdomen with some radiation to the right side. Evaluation with CT of the abdomen and pelvis revealed abdominal aortic aneurysm measuring roughly 9 cm in length with retroperitoneal hemorrhage suggesting weak and suspected impending rupture, urgent vascular surgical referral was placed, and patient underwent placement of aortobiiliac endograft, and bare-metal expandable stent placed in the left external iliac artery by Dr. Hummel and Dr. Summers. Patient was transferred to the intensive care unit after observation in the recovery, he did extubate in the recovery, arrived in the intensive care unit later in the evening, slightly hypertensive, and drowsy, and his blood gases did reveal acute hypercapnic respiratory failure, with pO2 of 70, pCO2 of 82, and pH of 7.13, this was done on 44% FiO2, patient subsequently placed on BiPAP support, his subsequent blood gases showed improvement in the ventilation and oxygenation, patient was removed from BiPAP support as he became more more alert, and he is currently on 2 L of oxygen, with pulse ox of 94-95%, hemodynamically he stable, he never required Cleviprex last night, blood pressure is 129/52, he is in atrial fibrillation wi th a controlled rate, he is been afebrile. He denies any shortness of breath, no cough or congestion, we'll provide him with incentive spirometer, he is on cefazolin following his surgery, his bilateral groin incisions are clean dry and intact, his distal pulses are palpable. On 06/16/2020 patient seen in follow-up in the intensive care unit, this is postoperative day number 2, status post aortobiiliac endograft with stenting of the left external iliac artery. Patient apparently has been very restless through the night, still remains a bit drowsy however more awake on today's exam, more responsive, he is responding properly, he is oriented 3, however he is been very impulsive according to the nursing staff, he gets up unassisted, and frequently Using the urinal. Summers catheter has been discontinued, currently on 5 L of oxygen her pulse ox of 95-96%, lung sounds reveal diffuse crackles. His been afebrile, he has not been working on his incentive spirometer very well, although at times she is able to achieve 1.5 L according to the nursing staff. Bilateral groin incisions are clean dry and intact, hemodynamically he stable, he is just some point and was seen at rate of 125 ML per hour which was discontinued, he is tolerating oral intake. Today's labs have been reviewed, showing white blood cell, 13.7, hemoglobin of 9.0, sodium is 139, potassium is 4.4, chloride is 111, CO2 23, BUN of 24 creatinine is 1.23. His urinalysis revealed possibility of urinary tract infection, his urine culture is pending at this time, remains on IV cefazolin per vascular surgery. On 06/17/2020 patient seen in follow-up on the medical surgical floor, today is postoperative day #3, status posta ortobiiliac endograft with stenting of the left external iliac artery. He is doing well, she is more awake on today's exam, her pulse ox is 95%, denies any difficulty breathing, lung sounds are clear, diminished at the bases, no rhonchi or wheezing, patient has had no fever or chills, Ordoñez signs have been stable, bilateral groin incisions clean dry and intact, yesterday's chest x-ray showed mild cardiac megaly, interstitial densities and trace pleural effusions probably related to mild CHF, fluid overload. The patient has been stable, cardiology has been following, echocardiogram was completed showing EF of 50-55%, mild aortic stenosis, moderate mitral regurgitation, moderate to severe tricuspid regurgitation moderate to severe pulmonary hypertension. Patient has history of chronic persistent atrial fibrillation, he is not on any tach with exertion due to his history of GI bleeding. Appears to be comfortable on today's exam, has no specific complaints, is hoping to be able to go home today Objective - Vital Signs Vital signs: Vital Signs Temp 98.1 F 06/17/20 11:57 Pulse 94 06/17/20 11:57 Resp 20 06/17/20 11:57 BP 104/57 06/17/20 11:57 Pulse Ox 95 06/17/20 11:57 Intake & Output 06/16/20 06/17/20 06/17/20 18:59 06:59 18:59 Intake Total 425 Output Total 500 150 Balance -75 -150 Intake: IV 425 Sodium Chloride 0.9% 1, 375 000 ml @ 125 mls/hr IV . Q8H NEHA Rx#:[id number] ceFAZolin 1,000 mg In 50 Sodium Chloride 0.9% 50 ml @ 100 mls/hr IVPB Q8HR NEHA Rx#:[id number] Output: Urine 500 150 Other: Voiding Method Urinal Urinal Toilet # Voids 1 1 3 # Bowel Movements 1 ABP, PAP, CO, CI - Last Documented Arterial Blood Pressure 107/48 - Exam GENERAL EXAM: Drowsy but arousable, 79-year-old white male, a 5 L of oxygen with pulse ox of 96%, comfortable in no apparent distress. HEAD: Normocephalic/atraumatic. EYES: Normal reaction of pupils, equal size. Conjunctiva pink, sclera white. NOSE: Clear with pink turbinates. THROAT: No erythema or exudates. NECK: No masses, no JVD, no thyroid enlargement, no adenopathy. CHEST: No chest wall deformity. Symmetrical expansion. LUNGS: Equal air entry with no crackles, wheeze, rhonchi or dullness. CVS: Regular rate and rhythm, normal S1 and S2, no gallops, no murmurs, no rubs ABDOMEN: Soft, nontender, obese. No hepatosplenomegaly, normal bowel sounds, no guarding or rigidity. EXTREMITIES: No clubbing, no edema, no cyanosis, 2+ pulses and upper and lower extremities. Bilateral groin incisions covered with surgical dressings, clean dry and intact, MUSCULOSKELETAL: Muscle strength and tone normal. SPINE: No scoliosis or deformity SKIN: No rashes CENTRAL NERVOUS SYSTEM: Drowsy and oriented -3. No focal deficits, tone is normal in all 4 extremities. PSYCHIATRIC: Drowsy and oriented -3. Appropriate affect. Intact judgment and insight. - Labs CBC & Chem 7: 06/16/20 03:13 06/16/20 03:13 Labs: Abnormal Lab Results - Last 24 Hours (Table) 06/14/20 06/16/20 Range/Units 11:56 03:13 Procalcitonin 0.38 H (0.02-0.09) ng/mL Crossmatch See Detail Microbiology - Last 24 Hours (Table) 06/15/20 03:45 Urine Culture - Final Urine,Catheterized Assessment and Plan Plan: Assessment: #1. Acute hypoxic respiratory failure related to hypoventilation, and atelectasis #2. Acute ruptured infrarenal abdominal aortic aneurysm, patient presented with right-sided abdominal pain, patient's status post urgent aortobiliac endograft, and stent placement to the left external iliac artery, postoperative day #3 #3. Acute hypercapnic respiratory failure related to hypoventilation and atelectasis, requiring BiPAP support, improved, patient is currently on nasal cannula #4. Extensive history of smoking, patient carries greater than [id number] smoking history, still smoking one to 2 packs per day #5. Hypertension #6. Hyperlipidemia #7. COPD not oxygen dependent at baseline #8. BPH #9. Chronic back pain #10. Psoriasis #11. Obstructive sleep apnea not on CPAP therapy Plan: Continue encouraging deep breathing and coughing, clinically patient has remained stable, no acute events overnight, he is on room air, denies any dyspnea, no cough or congestion, no specific complaints, denies chest x-ray has been reviewed showing interstitial densities and trace pleural effusions. Urinalysis suggest possibility of urinary tract infection, however urine culture showed no growth, patient has received IV antibiotics while in the hospital, currently asymptomatic, vital signs stable no fever or chills. He is stable for discharge home today from pulmonary perspective I performed a history & physical examination of the patient and discussed their management with my nurse practitioner, Mariana Mott. I reviewed the nurse practitioner's note and agree with the documented findings and plan of care. Lung sounds are positive for diminished breath sounds. The findings and the impression was discussed with the patient. I attest to the documentation by the nurse practitioner. Time with Patient: Less than 30
--- NOTE | 2020-06-18 07:55 | CDI ---
Documentation Clarification Form Date: 06/18/20 From: Maria Crawford Phone: If you have a question about this query, please contact Britni Weaver Property Adjuster at [phone] between 8am and 5pm. Admit Date: Discharge Date: Patient Name: Visit Number: ATTENTION: The Clinical Documentation Specialists (CDI) and [facility] Coding Staff appreciate your assistance in clarifying documentation. Please respond to the clarification below the line at the bottom and electronically sign. The CDI & [facility] Coding staff will review the response and follow-up if needed. Please note: Queries are made part of the Legal Health Record. If you have any questions, please contact the author of this message via ITS. Dear Dr. Rich CKD is documented in the past medical history of Dr. Angel's 06/15 progress note, your consult note and progress notes and the discharge summary. History/Risk Factors: Hypertension, pulmonary hypertension, atrial fib, hyperlipidemia Patients Historical BUN/CR/GFR BUN: 11/26/18 - 22, 11/27/18, Creatinine: 11/26/18 - 1.18, 11/28/19 - 1.24 GFR: 11/26/18 - 59, 11/27/18 Clinical Indicators: Decreased GFR Current BUN/CR/GFR: BUN: 06/14/20 - , 06/14/20 - 16, 06/15/20, 06/16/20 Creatinine: 06/14/20 - 1.00, 06/14/20 - 0.91, 06/15/20 - 1.21, 06/16/20 - 1.23 GFR: 06/14/20 - 71, 06/14/20 - 80, 06/15/20 57, 06/16/20 Treatment: Atenolol 25 mg PO BID, Lipitor 80 MG In order to capture the severity of condition, please clarify the stage of the CKD, if known: CKD Stage 1 (GFR > 90) CKD Stage 2 (GFR 60-89) CKD Stage 3 (GFR 30-59) CKD Stage 4 (GFR 15-29) CKD Stage 5 (GFR <15) ESRD Other, please specify Unable to determine Stage 3 MTDD
== END 2020-06-17 14:46 | disposition home or self-care (01) | DRG 268 ==
LOC: EC 08:35 → 2SICU 11:20 → 6NMEDSUR 06-17 00:01
PROVIDERS: ADMIT Surgery; ATTEND Surgery
PROC: 047J3DZ Dilation of Left External Iliac Artery with Intraluminal Device, Percutaneous Approach (ICD-10-PCS; principal; 2020-06-14 18:20)
PROC: 04V04DZ Restriction of Abdominal Aorta with Intraluminal Device, Percutaneous Endoscopic Approach (ICD-10-PCS; principal; 2020-06-14 18:20)
DX: I71.3 Abdominal aortic aneurysm, ruptured (principal); J96.01 Acute respiratory failure with hypoxia; J96.02 Acute respiratory failure with hypercapnia; I48.19 Other persistent atrial fibrillation; J98.11 Atelectasis; I27.20 Pulmonary hypertension, unspecified; I13.10 Hypertensive heart and chronic kidney disease without heart failure, with stage 1 through stage 4 chronic kidney disease, or unspecified chronic kidney disease; N18.30 Chronic kidney disease, stage 3 unspecified; I70.1 Atherosclerosis of renal artery; J44.9 Chronic obstructive pulmonary disease, unspecified; E78.5 Hyperlipidemia, unspecified; F17.210 Nicotine dependence, cigarettes, uncomplicated; G47.33 Obstructive sleep apnea (adult) (pediatric); G89.29 Other chronic pain; I08.3 Combined rheumatic disorders of mitral, aortic and tricuspid valves; I25.10 Atherosclerotic heart disease of native coronary artery without angina pectoris; I70.8 Atherosclerosis of other arteries; L40.9 Psoriasis, unspecified; M19.90 Unspecified osteoarthritis, unspecified site; N40.0 Benign prostatic hyperplasia without lower urinary tract symptoms; M10.9 Gout, unspecified; M54.9 Dorsalgia, unspecified; R45.87 Impulsiveness; Z79.82 Long term (current) use of aspirin; Z79.899 Other long term (current) drug therapy; Z85.828 Personal history of other malignant neoplasm of skin; Z87.11 Personal history of peptic ulcer disease; Z90.49 Acquired absence of other specified parts of digestive tract; Z96.642 Presence of left artificial hip joint; Z98.61 Coronary angioplasty status; Z87.19 Personal history of other diseases of the digestive system; Z98.890 Other specified postprocedural states; Z80.0 Family history of malignant neoplasm of digestive organs; Z84.0 Family history of diseases of the skin and subcutaneous tissue; Z80.9 Family history of malignant neoplasm, unspecified
CPT/HCPCS: 34705; 36415; 37221; 71045; 74177; 80048; 80053; 81001; 82150; 82805; 83605; 83690; 84145; 85025; 85027; 85610; 85730; 86850; 86891; 86900; 86901; 86920; 87086; 93306; 94660; 96361; 96374; 96375; 99291

== ENCOUNTER → 2020-06-23 | Outpatient (CLI) | payer MEDICARE, BC ==
--- NOTE | 2020-06-23 12:56 | XR ---
EXAMINATION TYPE: XR abdomen 2V DATE OF EXAM: 06/23/2020 COMPARISON: NONE HISTORY: Pain TECHNIQUE: Single supine KUB image of the abdomen is obtained FINDINGS: Small bowel demonstrates no evidence for dilatation or air fluid levels. Gas and fecal material is seen in non-distended colon. No convincing evidence for pneumoperitoneum. No unusual calcifications. The lung bases are clear. The osseous structures are intact. IMPRESSION: 1. Overall nonobstructive bowel gas pattern.
[2020-06-23 13:49] LABS: HCT 31.5 % (39.0-53.0); HGB 9.8 gm/dL (13.0-17.5); Hypochromasia Moderate; MCH 27.9 pg (25.0-35.0); MCV 90.1 fL (80.0-100.0); Mean Platelet Volume 7.6; Poikilocytosis Slight; RBC 3.49 m/uL (4.30-5.90); RDW 15.6 % (11.5-15.5)
[2020-06-23 13:54] LABS: Albumin 3.2 g/dL (3.5-5.0); Calcium 8.6 mg/dL (8.4-10.2); Potassium 3.9 mmol/L (3.5-5.1); Total Bilirubin 2.6 mg/dL (0.2-1.3); Total Protein 6.2 g/dL (6.3-8.2)
[2020-06-23 14:00] LABS: Platelet Count 257 k/uL (150-450)
== END | disposition home or self-care (01) ==
LOC: RADXRMAIN 12:18
PROVIDERS: ATTEND Surgery
DX: R14.0 Abdominal distension (gaseous) (principal); R10.84 Generalized abdominal pain
CPT/HCPCS: 36415; 74019; 80053; 85027

== ENCOUNTER → 2020-07-08 | Outpatient (CLI) | payer MEDICARE, BC ==
--- NOTE | 2020-07-08 15:22 | CT ---
EXAMINATION TYPE: CT angio abdomen pelvis DATE OF EXAM: 07/08/2020 COMPARISON: HISTORY: AAA F/u CT DLP: 1376.2 mGycm, Automated Exposure Control for Dose Reduction was Utilized. CONTRAST: CTA scan of the abdomen and pelvis is performed without oral and without and with IV Contrast, patien t injected with 80 mL of Isovue 370. Stent graft protocol. Three-D reconstructed images created on a independent workstation and reviewed. FINDINGS: VASCULAR: There is new stent graft beginning at level of celiac artery nonmetallic portion with metal lic portion beginning near SMA origin extending to distal common iliac arteries bilaterally. There is new metallic stent in the proximal left external iliac artery. There is large AAA redemonstrated. Th e [place] aneurysm measures up to 7.5 cm transversely axial image 41 stable in size from prior study. There is persistent outpouching along the posterior right margin image 41 similar to prior study. Jordan gth of the aneurysm roughly 12 cm coronal image 17. Persistent irregular hyperdensity and calcificati on involving the anterior aspect of the infrarenal AAA not significantly changed from prior. Some mil d ill-defined fluid and fat stranding surrounding aorta is significantly improved from prior study. D ynamic postcontrast images show patency of the stent graft without definitive extraluminal enhancemen t to suggest endoleak. Patent proximal left external iliac stent after 2.9 cm left common iliac arter y aneurysm stable in size from prior. LUNG BASES: Persistent cardiomegaly. LIVER/GB: Two Large gallstones redemonstrated dependently in the gallbladder. PANCREAS: No significant abnormality is seen. SPLEEN: No significant abnormality is seen. ADRENALS: No significant abnormality is seen. KIDNEYS: Redemonstration of several nonobstructing renal calculi bilaterally. There are scattered sim ple-appearing thin-walled cysts bilaterally redemonstrated with largest adjacent cysts or lobulated c yst lower pole left kidney. No hydronephrosis seen bilaterally. BOWEL: Diverticula throughout the left and sigmoid colon and the right colon. No CT evidence for acut e diverticulitis. PROSTATE/SEMINAL VESICLES: Enlarged prostate gland consistent with BPH redemonstrated. LYMPH NODES: No new greater than 1cm abdominal or pelvic lymph nodes are appreciated. In retrospect stable slightly enlarged 1.7 x 1.3 cm left iliac chain lymph node axial image 60 series 7. This is st able from March 2018 and thus can be presumed benign. OSSEOUS STRUCTURES: Metallic artificial left hip arthroplasty causes streak artifact limiting evaluat ion of pelvic structures. Moderate 2 borderline severe axial joint space loss and spurring right hip redemonstrated. [id number]-[id number] multilevel spurring in the spine. Moderate to severe disc space na rrowing lumbosacral junction redemonstrated. Prominent facet arthropathy lower lumbar levels. Prior p artial spinous process resection redemonstrated. OTHER: New ill-defined fluid and fat stranding left groin region likely reflects resolving postoperat mann hematoma from interval repair of the unstable AAA. IMPRESSION: New stent graft with successful patency. No CTA evidence for endoleak. Enlarged left pelv ic lymph node.
== END | disposition home or self-care (01) ==
LOC: RADCTMAIN 13:23
PROVIDERS: ATTEND Surgery
DX: R59.9 Enlarged lymph nodes, unspecified (principal); Z95.828 Presence of other vascular implants and grafts
CPT/HCPCS: 82565; 84520; 36415; 74174; Q9967

== ENCOUNTER 2025-01-05 23:24 | Emergency (ER) | payer MEDICARE, BC ==
[2025-01-05 23:30] VITALS: TEMP 97.7
[2025-01-06 00:37] LABS: Basophils # (A) 0.02 10*3/uL (0.00-0.10); Basophils % (A) 0.2 %; Eosinophils # (A) 0.24 10*3/uL (0.04-0.35); HCT 28.7 % (39.6-50.0); HGB 8.7 g/dL (13.0-17.0); Lymphocytes % (A) 11.2 %; MCH 28.5 pg (27.0-32.0); MCHC 30.3 g/dL (32.0-37.0); MCV 94.1 fL (80.0-97.0); Monocytes # (A) 0.81 10*3/uL (0.20-1.00); Monocytes % (A) 10.1 %; Neutrophils # (A) 6.03 10*3/uL (1.80-7.70); Neutrophils % (A) 75.1 %; Platelet Count 138 10*3/uL (140-440); RBC 3.05 10*6/uL (4.40-5.60); RDW 15.9 % (11.5-14.5); WBC 8.03 10*3/uL (4.50-10.00)
[2025-01-06 00:57] LABS: INR 1.1 (<1.2); Partial Thromboplastin Time 25.4 sec (22.0-30.0); Prothrombin Time 11.6 sec (10.0-12.5)
[2025-01-06 00:59] LABS: ALT 7 U/L (4-49); AST 18 U/L (17-59); African American GFR (CKD) 31 (>60 ml/min/1.73 sqM); Albumin 3.4 g/dL (3.5-5.0); Alkaline Phosphatase 68 U/L (38-126); Anion Gap 9 mmol/L; Blood Urea Nitrogen 43 mg/dL (9-20); Calcium 8.9 mg/dL (8.4-10.2); Carbon Dioxide 27 mmol/L (22-30); Chloride 106 mmol/L (98-107); Glucose 109 mg/dL (74-99); Non-African American GFR(CKD) 27 (>60 ml/min/1.73 sqM); Potassium 4.2 mmol/L (3.5-5.1); Sodium 142 mmol/L (137-145); Total Protein 6.2 g/dL (6.3-8.2)
[2025-01-06 02:25] VITALS: BP 121/63; PULSE 81; RESP 18
--- NOTE | 2025-01-06 02:33 | ED ---
General Adult HPI - General Chief complaint: Wound/Laceration Stated complaint: fluid around stomach, bruising around penis Time Seen by Provider: 01/05/25 23:37 Source: patient, family Mode of arrival: ambulatory Limitations: no limitations - History of Present Illness Initial comments: This patient is an 84-year-old man who presents to have reevaluation of ecchymosis that has developed over his abdominal wall and over the. Genital area. He did have a laparoscopic cholecystectomy performed on 12/31. He did return to the hospital 2 days later to have reevaluation and was found to have abdominal wall hematoma that had developed. The patient is concerned because he has noted further bruising to the perigenital area. Patient denies significant abdominal pain. No fever or chills. No change in urination or bowel movements. No vomiting -: hour(s) Location: abdomen, genitals Radiation: non-radiation Consistency: constant Improves with: none Worsens with: none Associated Symptoms: denies other symptoms Treatments Prior to Arrival: none - Related Data Home Medications Medication Instructions Recorded Confirmed Tamsulosin HCl [Flomax] 0.4 mg PO DAILY 01/03/18 01/02/25 Aspirin [Adult Low Dose Aspirin EC] 81 mg PO DAILY 12/30/24 01/02/25 Atorvastatin [Lipitor] 5 mg PO HS 12/30/24 01/02/25 Furosemide [Lasix] 40 mg PO BID 12/30/24 01/02/25 Gabapentin [Neurontin] 200 mg PO BID 12/30/24 01/02/25 Metoprolol Tartrate [Lopressor] 50 mg PO BID 12/30/24 01/02/25 Pantoprazole [Protonix] 40 mg PO DAILY 12/30/24 01/02/25 Acetaminophen Tab [Tylenol] 650 mg PO Q6H PRN 01/02/25 01/02/25 Docusate [Colace] 100 mg PO BID PRN 01/02/25 01/02/25 Previous Rx's Medication Instructions Recorded Ibuprofen [Motrin] 600 mg PO Q6HR PRN #40 tab 12/31/24 oxyCODONE HCL [OxyIR] 5 mg PO Q6H PRN 3 Days #10 tab 12/31/24 Allergies Allergy/AdvReac Type Severity Reaction Status Date / Time No Known Allergies Allergy Verified 01/05/25 23:26 Review of Systems ROS Statement: Those systems with pertinent positive or pertinent negative responses have been documented in the HPI. ROS Other: All systems not noted in ROS Statement are negative. Constitutional: Denies: fever, chills, weakness Respiratory: Denies: cough, dyspnea Cardiovascular: Reports: edema. Denies: chest pain, palpitations, syncope Gastrointestinal: Denies: abdominal pain, nausea, vomiting, diarrhea, melena, hematochezia Genitourinary: Denies: dysuria, hematuria, testicular pain Musculoskeletal: Denies: back pain Skin: Reports: change in color Neurological: Denies: headache, weakness Hematological/Lymphatic: Denies: easy bleeding Past Medical History Past Medical History: Atrial Fibrillation, Cancer, COPD, GERD/Reflux, Hyperlipi demia, Hypertension, Osteoarthritis (OA), Prostate Disorder, Renal Disease, Skin Disorder, Sleep Apnea/CPAP/BIPAP Additional Past Medical History / Comment(s): Hx bleeding stomach ulcer with surgery in the 1959's, hx acute renal failure 11/2017, elevated PSA, gout bilateral ankles and toes both feet, chronic back pain, psoriasis, hx skin cancer with removals, no CPAP use, hx burst aortic aneurysm with repair, no inhalers needed for COPD. History of Any Multi-Drug Resistant Organisms: None Reported Past Surgical History: Appendectomy, Back Surgery, Cholecystectomy, Joint Replacement Additional Past Surgical History / Comment(s): Total left hip arthroplasty, gastric surgery for bleeding ulcer, back surgery X4, skin cancer removals, aortic aneurysm repair. Past Anesthesia/Blood Transfusion Reactions: Previous Problems w/ Anesthesia Additional Past Anesthesia/Blood Transfusion Reaction / Comment(s): "Prefers not to have Ativan. Got double dosed - caused extended recovery from anesthesia". Past Psychological History: No Psychological Hx Reported Smoking Status: Current every day smoker Past Alcohol Use History: None Reported Past Drug Use History: None Reported - Past Family History Mother Family Medical History: Cancer, Skin Disorder Additional Family Medical History / Comment(s): Psoriasis, unknown to pt type of cancer. Father Family Medical History: No Reported History Additional Family Medical History / Comment(s): Father was healthy. Brother(s) Family Medical History: Cancer Additional Family Medical History / Comment(s): COLON CANCER. General Exam Limitations: no limitations General appearance: alert, in no apparent distress Head exam: Present: atraumatic, normocephalic Eye exam: Present: normal appearance. Absent: scleral icterus, conjunctival injection ENT exam: Present: normal oropharynx Neck exam: Present: normal inspection Respiratory exam: Present: normal lung sounds bilaterally. Absent: respiratory distress, wheezes, rales, rhonchi, stridor, accessory muscle use Cardiovascular Exam: Present: regular rate, normal rhythm, normal heart sounds. Absent: systolic murmur, diastolic murmur, rubs, gallop GI/Abdominal exam: Present: soft, other (Patient has ecchymosis over the a nterior abdominal wall and extending into the groin and scrotum.). Absent: distended, tenderness, guarding, rebound, rigid, mass exam: Present: other (Ecchymosis) Extremities exam: Present: normal inspection, normal capillary refill. Absent: pedal edema, calf tenderness Back exam: Absent: CVA tenderness (R), CVA tenderness (L) Neurological exam: Present: alert Skin exam: Present: warm, dry, intact, other (As above) Course Vital Signs 01/05/25 01/06/25 01/06/25 23:26 00:41 02:05 Temperature 97.7 F Pulse Rate 87 63 81 Respiratory 18 16 18 Rate Blood Pressure 114/72 111/66 121/63 O2 Sat by Pulse 97 95 95 Oximetry Medical Decision Making - Medical Decision Making Was pt. sent in by a medical professional or institution (, PA, COLLECTION SYSTEMS ADMINISTRATOR, urgent care, hospital, or alf...) When possible be specific @ -[No] Did you speak to anyone other than the patient for history (EMS, parent, family, police, friend...)? What history was obtained from this source @ -[No] Did you review nursing and triage notes (agree or disagree)? Why? @ -[I reviewed and agree with nursing and triage notes] Were old charts reviewed (outside hosp., previous admission, EMS record, old EKG, old radiological studies, urgent care reports/EKG's, alf records)? Report findings @ -[No old charts were reviewed] Differential Diagnosis (chest pain, altered mental status, abdominal pain women, abdominal pain men, vaginal bleeding, weakness, fever, dyspnea, syncope, headache, dizziness, GI bleed, back pain, seizure, CVA, palpatations, mental health, musculoskeletal)? @ -[not applicable] EKG interpreted by me (3pts min.). @ -[As above] X-rays interpreted by me (1pt min.). @ -[None done] CT interpreted by me (1pt min.). @ -[None done] U/S interpreted by me (1pt. min.). @ -[None done] What testing was considered but not performed or refused? (CT, X-rays, U/S, labs)? Why? @ -[None] What meds were considered but not given or refused? Why? @ -[None] Did you discuss the management of the patient with other professionals (professionals i.e. , PA, COLLECTION SYSTEMS ADMINISTRATOR, lab, RT, psych nurse, social media marketing analyst, construction sales manager, teacher, classifications officer cc/cm, assistant case manager)? Give summary @ -[Case discussed with patient's surgeon and treatment recommendations incorporated Was smoking cessation discussed for >3mins.? @ -[No] Was critical care preformed (if so, how long)? @ -[No] Were there social determinants of health that impacted care today? How? (Homelessness, low income, unemployed, alcoholism, drug addiction, transportation, low edu. Level, literacy, decrease access to med. care, group home, rehab)? @ -[No] Was there de-escalation of care discussed even if they declined (Discuss DNR or withdrawal of care, Hospice)? DNR status @ -[No] What co-morbidities impacted this encounter? (DM, HTN, Smoking, COPD, CAD, Cancer, CVA, ARF, Chemo, Hep., AIDS, mental health diagnosis, sleep apnea, morbid obesity)? @ -[Recent laparoscopic cholecystectomy. Morbid obesity Was patient admitted / discharged? Hospital course, mention meds given and route, prescriptions, significant lab abnormalities, going to OR and other pertinent info. @ -[Patient is an 84-year-old man who is here to have evaluation for ecchymosis that has developed over his abdominal wall and groin area. The patient had recent laparoscopic cholecystectomy and then returned 2 days later and was found to have abdominal wall hematoma. The patient's appearance today consistent with postoperative ecchymosis. No concerning physical exam findings at this point. Labs were obtained and the patient's hemoglobin essentially unchanged. The patient also has improving creatinine and troponin values from his previous labs. At this point the patient's case discussed with the surgeon who feels patient is stable to continue as outpatient. I do not find any findings that require hospitalization and patient is eager to go home. Undiagnosed new problem with uncertain prognosis? @ -[No] Drug Therapy requiring intensive monitoring for toxicity (Heparin, Nitro, Insulin, Cardizem)? @ -[No] Were any procedures done? @ -[No] Diagnosis/symptom? @ -[Postoperative ecchymosis Abdominal wall hematoma Anemia Elevated troponin, improved Acute, or Chronic, or Acute on Chronic? @ -[Acute Uncomplicated (without systemic symptoms) or Complicated (systemic symptoms)? @ -[Uncomplicated Side effects of treatment? @ -[No] Exacerbation, Progression, or Severe Exacerbation? @ -[No] Poses a threat to life or bodily function? How? (Chest pain, USA, GA, pneumonia, PE, COPD, DKA, ARF, appy, cholecystitis, CVA, Diverticulitis, Homicidal, Suicidal, threat to staff... and all critical care pts) @ -[No] All treatments are based on ideal body weight as in ED triage - Lab Data Result diagrams: 01/06/25 00:14 01/06/25 00:14 Lab Results 01/06/25 01/06/25 01/06/25 Range/Units 00:14 00:14 00:14 WBC 8.03 (4.50-10.00) 10*3/uL RBC 3.05 L (4.40-5.60) 10*6/uL Hgb 8.7 L (13.0-17.0) g/dL Hct 28.7 L (39.6-50.0) % MCV 94.1 (80.0-97.0) fL MCH 28.5 (27.0-32.0) pg MCHC 30.3 L (32.0-37.0) g/dL Plt Count 138 L (140-440) 10*3/uL MPV 10.0 (9.5-12.2) fL Immature Gran % (Auto) 0.4 % Neutrophils % 75.1 % Lymphocytes % 11.2 % Monocytes % 10.1 % Eosinophils % 3.0 % Basophils % 0.2 % Immature Gran # 0.03 (0.00-0.04) 10*3/uL Neutrophils # 6.03 (1.80-7.70) 10*3/uL Lymphocytes # 0.90 (0.90-5.00) 10*3/uL Monocytes # 0.81 (0.20-1.00) 10*3/uL Eosinophils # 0.24 (0.04-0.35) 10*3/uL Basophils # 0.02 (0.00-0.10) 10*3/uL PT 11.6 (10.0-12.5) sec INR 1.1 (<1.2) APTT 25.4 (22.0-30.0) sec Sodium 142 (137-145) mmol/L Potassium 4.2 (3.5-5.1) mmol/L Chloride 106 (98-107) mmol/L Carbon Dioxide 27 (22-30) mmol/L Anion Gap 9 mmol/L BUN 43 H (9-20) mg/dL Creatinine 2.19 H (0.66-1.25) mg/dL Est GFR (CKD-EPI)AfAm 31 (>60 ml/min/1.73 sqM) Est GFR (CKD-EPI)NonAf 27 (>60 ml/min/1.73 sqM) Glucose 109 H (74-99) mg/dL Plasma Lactic Acid Bob (0.7-2.0) mmol/L Calcium 8.9 (8.4-10.2) mg/dL Total Bilirubin 1.0 (0.2-1.3) mg/dL AST 18 (17-59) U/L ALT 7 (4-49) U/L Alkaline Phosphatase 68 (38-126) U/L Troponin I (0.000-0.034) ng/mL Total Protein 6.2 L (6.3-8.2) g/dL Albumin 3.4 L (3.5-5.0) g/dL 01/06/25 01/06/25 Range/Units 00:14 00:14 WBC (4.50-10.00) 10*3/uL RBC (4.40-5.60) 10*6/uL Hgb (13.0-17.0) g/dL Hct (39.6-50.0) % MCV (80.0-97.0) fL MCH (27.0-32.0) pg MCHC (32.0-37.0) g/dL Plt Count (140-440) 10*3/uL MPV (9.5-12.2) fL Immature Gran % (Auto) % Neutrophils % % Lymphocytes % % Monocytes % % Eosinophils % % Basophils % % Immature Gran # (0.00-0.04) 10*3/uL Neutrophils # (1.80-7.70) 10*3/uL Lymphocytes # (0.90-5.00) 10*3/uL Monocytes # (0.20-1.00) 10*3/uL Eosinophils # (0.04-0.35) 10*3/uL Basophils # (0.00-0.10) 10*3/uL PT (10.0-12.5) sec INR (<1.2) APTT (22.0-30.0) sec Sodium (137-145) mmol/L Potassium (3.5-5.1) mmol/L Chloride (98-107) mmol/L Carbon Dioxide (22-30) mmol/L Anion Gap mmol/L BUN (9-20) mg/dL Creatinine (0.66-1.25) mg/dL Est GFR (CKD-EPI)AfAm (>60 ml/min/1.73 sqM) Est GFR (CKD-EPI)NonAf (>60 ml/min/1.73 sqM) Glucose (74-99) mg/dL Plasma Lactic Acid Bob 0.9 (0.7-2.0) mmol/L Calcium (8.4-10.2) mg/dL Total Bilirubin (0.2-1.3) mg/dL AST (17-59) U/L ALT (4-49) U/L Alkaline Phosphatase (38-126) U/L Troponin I 0.093 H* (0.000-0.034) ng/mL Total Protein (6.3-8.2) g/dL Albumin (3.5-5.0) g/dL Disposition Clinical Impression: Hematoma Disposition: HOME SELF-CARE Condition: Good Instructions (If sedation given, give patient instructions): Hematoma (ED) Is patient prescribed a controlled substance at d/c from ED?: No Referrals: Alan Gomez DO [Primary Care Provider] - 1-2 days Velasquez Palmer MD [STAFF PHYSICIAN] - 1-2 days
== END 2025-01-06 02:45 | disposition home or self-care (01) ==
LOC: EC 23:24
DX: S30.1XXA Contusion of abdominal wall, initial encounter (principal); Z90.49 Acquired absence of other specified parts of digestive tract; E66.01 Morbid (severe) obesity due to excess calories; Z68.27 Body mass index [BMI] 27.0-27.9, adult; F17.200 Nicotine dependence, unspecified, uncomplicated; X58.XXXA Exposure to other specified factors, initial encounter
CPT/HCPCS: 36415; 80053; 83605; 84484; 85025; 85610; 85730; 99283